=== PATIENT | female | born 1980 | race Caucasian/White ===

== ENCOUNTER 2019-03-15 11:38 | Observation (INO) | payer OTHER, SELFPAY ==
[2019-03-15] VITALS (7 sets, daily range): BP systolic 96–131; BP diastolic 58–82; PULSE 67–89; RESP 16–20; TEMP 37.1–37.3; O2SAT 97–100; BMI 23.8
--- NOTE | ~2019-03-15 | CT_ITS ---
EXAMINATION: CT brain wo con DATE: 03/15/2019 12:56 INDICATION: Right-sided paresthesias. Confusion. TECHNIQUE: Computed tomography (CT) of the head was performed without intravenous contrast. The mA wa s adjusted according to patient size. Iterative reconstruction technique was employed. The dose-lengt h product was 529.67 mGy-cm. COMPARISON: Head CT 05/18/2018 FINDINGS: There is no intracranial hemorrhage, acute infarction, or abnormal intracranial mass lesion . The ventricles are normal in size. The orbits are normal. The paranasal sinuses are clear. The mast oid air cells are normal. IMPRESSION: 1. Normal brain. Reviewed, dictated and finalized at location A. R MACHINE OPERATOR IMPRESSION: 1. Normal brain.
--- NOTE | ~2019-03-15 | MR_ITS ---
EXAMINATION: MR brain/brain stem wo/w con DATE: 03/16/2019 08:31 INDICATION: Transient ischemic attack. Multiple sclerosis. TECHNIQUE: Magnetic resonance imaging (MRI) of the brain and brainstem was performed without and with 10 mm MultiHance intravenous contrast. Sequences included sagittal and axial T1-weighted FLAIR, axia l T1-weighted FSE, axial diffusion-weighted FS EPI, sagittal T2-weighted FLAIR, axial T2*-weighted GR E, axial T2-weighted FLAIR Propeller, and axial T2-weighted Propeller. Postcontrast sequences include d axial, coronal, and sagittal T1-weighted FSE. Apparent diffusion coefficient (ADC) maps were create d. COMPARISON: Head CT 03/15/2019 FINDINGS: There is no intracranial hemorrhage, acute infarction, or abnormal intracranial mass lesion . The ventricles are normal in size. There is mild mucosal thickening in the paranasal sinuses. The o rbits are normal. The mastoid air cells are normal. IMPRESSION: 1. Normal brain. Reviewed, dictated and finalized at location A. E MANAGER IMPRESSION: 1. Normal brain.
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
[2019-03-15 12:18] LABS: Basophils Percent Auto 0.4 % (0.2-1.2); Eosinophils Percent Auto 0.4 % (0-4.4); Hemoglobin 13.1 g/dL (12.0-15.0); Immature Granulocyte Absolute 0.02 K/mm3 (0.00-0.031); Immature Granulocyte Percent A 0.3 % (0-0.5); Lymphocytes Absolute Auto 1.69 K/mm3 (0.9-3.2); Mean Corpuscular HGB Conc 31.2 g/dl (32-36); Mean Corpuscular Hemoglobin 30.4 pg (26-34); Mean Corpuscular Volume 97.4 fl (80-100); Monocytes Absolute Auto 0.5 K/mm3 (0.1-0.6); Monocytes Percent Auto 7.6 % (2.6-8.5); Neutrophils Absolute Auto 4.5 K/mm3 (1.3-6.7); Neutrophils Percent Auto 66.3 % (45.5-73.1); Platelet Count Result 175 k/mm3 (150-375); Red Blood Count 4.31 M/mm3 (4.2-5.4); White Blood Count 6.8 K/mm3 (4.5-10.0)
[2019-03-15 12:21] LABS: Add Urine Microscopic? YES; Appearance Urine Cloudy (Clear); Bacteria Urine Trace /hpf; Bilirubin Urine Negative (Negative); Blood Urine Negative (Negative); Color Urine Yellow (Yellow); Glucose Urine UA Negative (Negative); Ketones Urine Negative (Negative); Leukocyte Esterase Ur 3+ LEU/UL (Negative); Mucus Urine Rare /lpf; Nitrate Urine Negative (Negative); Protein Urine Negative (Negative); Specific Grav Ur 1.016 (1.001-1.035); Squamous Epithelial Cell Urine Many /hpf (Few); Urobilinogen Urine Negative mg/dL (<2.0); WBC Urine 0-3 /hpf
[2019-03-15 12:28] LABS: Alanine Aminotransferase 16 U/L (4-35); Albumin Level 4.5 g/dL (3.5-5.1); Alkaline Phosphatase 59 U/L (38-126); Aspartate Amino Transferase 21 U/L (14-36); Bilirubin,Total 0.2 mg/dL (0.2-1.3); Blood Urea Nitrogen 15 mg/dL (7-17); Calcium 9.4 mg/dL (8.4-10.2); Carbon Dioxide 27 mmol/L (22-30); Chloride 105 mmol/L (98-107); Estimated CRCL calculation 97 ml/min; Estimated Glomerular Filt Rate > 60; Glucose 98 mg/dL (65-105); Potassium 4.2 mmol/L (3.4-5.0); Sodium 140 mmol/L (137-145)
[2019-03-15 13:58] LABS: Amphetamine Screen Urine Negative (Negative); Barbiturate Screen Urine Negative (Negative); Benzodiazepines Screen Urine Negative (Negative); Cannabinoid Screen Urine Negative (Negative); Cocaine Screen Urine Negative (Negative); Methadone Screen Urine Negative (Negative); Opiate Screen Urine Negative (Negative); Phencyclidine Screen Urine Negative (Negative)
[2019-03-15] MEDS: ASPIRIN 325 MG TABLET PO (14:42)
--- NOTE | 2019-03-15 15:45 | ADMGEN ---
This patient, Echo Lam, was admitted to 2 Medical Room 243-01. Patient/family oriented to hospital policies and general routines including ID bracelet, bed and alarms, visiting hours, pain management, procedures, bathroom and other care routines, personal items, smoking policy, room service/diet, and visiting hours. Valuables list has been completed. Information on how to activate the Rapid Response Team has been discussed. Patient/Family are encouraged to report perceived risks to care and to ask questions if they do not understand what they are told or what they should do.
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
--- NOTE | 2019-03-15 19:32 | ECG_ITS ---
Measurements Intervals [place] Rate: 68 P: 71 AR: 152 QRS: 76 QRSD: 88 T: 70 QT: 358 QTc: 381 Interpretive Statements SINUS RHYTHM WITH SINUS ARRHYTHMIA NORMAL ECG Electronically Signed On 03-15-2019 21:35:45 ADMISSIONS DIRECTOR by Karel Paul D.O.
[2019-03-15] MEDS: ACETAMINOPHEN 325 MG TABLET 650 MG PO (19:40)
[2019-03-15 19:50] LABS: Erythrocyte Sedimentation Rate 10 mm/hr (0-20)
[2019-03-15 20:46] LABS: Folic Acid 18.3 ng/mL (2.76->20)
[2019-03-16] VITALS: PULSE 72
[2019-03-16] MEDS: LORAZEPAM 0.5 MG TABLET PO ×2 (00:37→08:45)
[2019-03-16 04:00] VITALS: PULSE 77
[2019-03-16 06:00] VITALS: BP 108/59; PULSE 90; RESP 18; TEMP 37; O2SAT 100
[2019-03-16 07:35] VITALS: PULSE 100
--- NOTE | 2019-03-16 08:30 | PC.NURSE ---
PT C/O OF RIGHT ARM PAIN AND REQUESTED THE ANXIETY PILL SHE HAS LAST NIGHT. DR SPIVEY NOTIFIED, NEW ORDERS RECEIVED.
[2019-03-16] MEDS: ASPIRIN 81 MG CHEWABLE TABLET PO (08:44)
[2019-03-16] MEDS: ACETAMINOPHEN 325 MG TABLET 650 MG PO (10:50)
--- NOTE | 2019-03-16 11:20 | PC.NURSE ---
PT STILL C/O OF RIGHT SIDED ARM AND LEG WEAKNESS AND NUMBNESS AND NOW STATES THAT SHE HAS LOST VISION IN HER RIGHT EYE. DR SPIVEY AND DR RO IN HOSPITAL AND NOTIFIED.
[2019-03-16 14:00] VITALS: BP 114/58; PULSE 91; RESP 16; TEMP 36.9; O2SAT 99
--- NOTE | 2019-03-16 14:11 | PM.IMPN ---
Progress Note: A&P Assessment and Plan (1) Paresthesia: Code(s): R20.2 - Paresthesia of skin Status: Acute Assessment and Plan: CT brain on admission negative. MRI brain normal. Patient has been seen by neurology and appreciate input. Neurology did wish to try to have EEG done prior to discharge but patient prefers not to wait and would like to schedule EEG as an outpatient. Suspect symptoms are at least in part result of recent increased stress. As also okay with Neurology, will discharge home this afternoon. (2) Blurry vision: Code(s): H53.8 - Other visual disturbances Status: Acute Assessment and Plan: Imaging as noted above. Plan for EEG as an outpatient. (3) Anxiety: Code(s): F41.9 - Anxiety disorder, unspecified Status: Acute Assessment and Plan: Did have some Ativan and acetaminophen last night. Will allow patient have a small prescription of Ativan for use at home. (4) DVT prophylaxis: Code(s): Z29.9 - Encounter for prophylactic measures, unspecified Status: Acute Assessment and Plan: Up as tolerated. Time Spent With Patient Time with patient: 15 - 25 minutes Subjective Date/time seen: 03/16/19 14:11 Interval history: Date of Service: 03/16/2019. Admitted with blurry vision, numbness right face/arm/leg. Has had recent significant stress within the past month. Patient has still had some episodes of blurry vision along with numbness in the right face, right arm and right leg. Has been seen by Neurology. Still has some numbness in the right face currently as well as in the right arm and leg but wants to go home. No chest pain or shortness of breath. Review of Systems Constitutional: Constitutional: Denies chills and Denies fever(s) Eyes: Eyes: Reports blurry vision ENT: Denies nasal congestion and Denies nasal discharge Cardiovascular: Cardiovascular: Denies chest pain and Denies lightheadedness Respiratory: Respiratory: Denies dyspnea Gastrointestinal: Gastrointestinal: Denies abdominal pain, Denies nausea and Denies vomiting Genitourinary: Genitourinary: Reports no additional female genitourinary complaints Musculoskeletal: Musculoskeletal: Denies back pain, Denies arthralgias and Denies neck pain Integumentary/Breasts: Skin/Breast: Denies rash Neurologic: Denies Abnormal speech present, Denies abnormal gait, Denies dizziness, Denies headache(s) and Reports numbness (Right face, right arm/leg) Psychiatric: Psychiatric: Reports anxiety Exam Narrative: Exam Narrative: Awake and alert. Const: General: no acute distress HENMT: Mouth: Yes moist mucous membranes Eyes: Sclera: sclerae normal EOM: EOMs intact bilaterally Neck: Neck: supple Lymphatic: lymphadenopathy not noted Resp: Auscultation: clear to auscultation bilaterally, no rales and no wheezes Cardio: Rate: regular rate Rhythm: regular rhythm GI: Inspection: non-distended GI Palp: Yes Soft to palpation and No Tenderness to palpation present (GI) Auscultation: normal bowel sounds Skin: General skin exam: no rashes or lesions noted Neuro: Cognition (Neuro): normal cognition Speech: normal speech Motor exam (neuro): 5/5 motor strength present throughout and Normal motor muscle tone present throughout Other: Decreased sensation to light touch right face Extrem: General: no edema Psych: Mental Status: mental status grossly normal Affect: Anxious affect present Objective Data Vital Signs Vital Signs: Vital Signs - 24 hr 03/15/19 14:44 03/15/19 15:36 03/15/19 16:00 Temperature 98.8 F Pulse Rate 83 89 82 Respiratory Rate 18 18 16 Blood Pressure 116/82 96/62 L 108/60 Pulse Oximetry 97 100 100 03/15/19 19:20 03/15/19 20:00 03/16/19 00:00 Temperature 99.1 F Pulse Rate 67 74 72 Respiratory Rate 20 Blood Pressure 105/58 L Pulse Oximetry 100 03/16/19 04:00 03/16/19 06:00 03/16/19 07:35 Temperature 98.6 F Pulse Rate 77
--- NOTE | 2019-03-16 14:47 | CONS_ITS ---
DATE OF CONSULTATION: 03/15/2019 HISTORY OF PRESENT ILLNESS: This 39 years old right-handed female has been admitted to the hospital through the emergency room for the complaints of right facial numbness. The patient was brought to the ER with a private vehicle for the complaints of intermittent confusion and right facial numbness. She does have ongoing history of ADD. About 3 weeks ago while at work, she developed sudden numbness in her right face and the right upper extremity seemed to be weak and painful. She was confused more so as she remembers sitting in bedroom and then suddenly she was unable to know where she was. Symptoms gradually resolved, but have been recurring intermittently since that time. On 2 occasions in the last couple of weeks, she has had pain behind her right eye with subsequent complete loss of vision in that eye that lasted seconds before resolving. Earlier today while at the grocery store with her mother, she once again began experiencing right face numbness, right arm numbness, and disorientation. She has not had any fever, chills, or sweats. No history of trauma or recent chiropractor adjustment, no history of vertigo or gait instability. PAST MEDICAL HISTORY: She does have ongoing history of ADD, depression, kidney stones, D and C, right salpingo-oophorectomy, cholecystectomy, cystoscopy, capsulectomy, and tubal ligation. SOCIAL HISTORY: She is a never smoker. 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 MEDICATIONS: She is not taking any medication. PHYSICAL EXAMINATION: GENERAL: Today, she was awake, alert, cooperative, in no obvious acute distress, but somewhat distant in conversation. HEENT: Head normocephalic with no cranial bruit. Ears, nose, throat examination normal. NECK: Supple with no cervical bruit. No thyromegaly. No lymphadenopathy. HEART: Regular with no murmur. LUNGS: Clear to auscultation. ABDOMEN: Soft with no organomegaly. NEUROLOGICAL: She had normal mental status, normal speech. Pupils round regular. [place] of vision full. Extraocular movements full. Face symmetrical. Tongue midline. Motor examination revealed normal strength and tone in upper and lower extremities. Reflexes symmetrical. Plantar downgoing. No evidence of gross cerebral deficit. LABORATORY DATA: Evaluation up until now included CBC, which is normal so is the BMP and hepatic enzymes and UA. CT scan of the head done was done in the emergency room which was negative. Since that time, she has had the MRI of the brain as well, which is normal. ASSESSMENT AND PLAN: I will obtain the routine EEG and further recommendation accordingly. I explained to the patient that most likely we are going to rule out the possibility of TIA versus seizure. MRI of the brain is negative. If the EEG comes back normal as well, then we are going to follow her in the office. One could always consider the possibility of demyelinating disease. If necessary, we will obtain the MRI of cervical and thoracic spine later on. AMISHA RO M.D. SUPERVISOR [employer] SUPERVISOR [employer]TO[employer]ORATORY D Armando [place]: Val
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
== END 2019-03-16 14:48 | disposition home or self-care (01) ==
LOC: ANHED 14:31 → ANH2MED 15:17
PROVIDERS: Family Medicine; Physician Assistant; Admitting Provider Hospitalist; Emergency Provider Emergency Medicine; PCP Internal Medicine; Visit Provider Hospitalist
DX: R20.2 Paresthesia of skin (principal); H53.8 Other visual disturbances; F41.9 Anxiety disorder, unspecified; R41.0 Disorientation, unspecified; F98.8 Other specified behavioral and emotional disorders with onset usually occurring in childhood and adolescence; Z87.891 Personal history of nicotine dependence
CPT/HCPCS: 36415; 70450; 70553; 80053; 80307; 81001; 81025; 82607; 82746; 84443; 85025; 85652; 93005; 99285; A9270; A9577; G0378; G0379

== ENCOUNTER 2019-03-22 06:32 | Outpatient (CLI) | payer OTHER, SELFPAY ==
--- NOTE | 2019-03-22 07:00 | NEURO_ITS ---
TEST: ELECTROENCEPHALOGRAM DIAGNOSIS: VISUAL DISTURBANCE PATIENT NUMBER: [id number] EEG NUMBER: [id number] RECORDING DATE: 03/22/19 CONDITION OF RECORDING: Awake, drowsy and sleep EEG DESCRIPTION: Basic resting occipital frequency consists of moderate amount of low to medium voltage 9-11hz alpha mixed with low voltage 15-18hz beta. During drowsiness low voltage beta activity is seen diffusely mixed with waxing and waning posterior alpha rhythms. Bilateral symmetrical sleep activity is seen during sleep. Hyperventilation produced normal and symmetrical build-up. Photic stimulation produced normal drive. Nonparoxysmal. Nonfocal. Nonlateralizing IMPRESSION: No significant abnormalities noted. [facility]
== END 2019-03-22 06:33 | disposition home or self-care (01) ==
PROVIDERS: PCP Internal Medicine; Visit Provider Psychiatry & Neurology Neurology
DX: H53.9 Unspecified visual disturbance (principal)
CPT/HCPCS: 95816

== ENCOUNTER 2019-11-04 08:46 | Emergency (ER) | payer SELFPAY ==
[2019-11-04 09:00] VITALS: BP 100/78; PULSE 87; RESP 20; TEMP 36.6; O2SAT 100
--- NOTE | 2019-11-04 09:16 | ED.BACK ---
HPI - Back Pain/Injury General Chief Complaint: Back Pain/Injury Stated Complaint: lower back pain/right hip pain Source: patient and RN notes reviewed Limitations: no limitations History of Present Illness HPI Narrative: The patient, previously mostly healthy, presents with right low back pain. Patient states she has a 2-day worsening of about a year long history of intermittent back pain. She attributes the pain to walking on a hard floor; No injury, numbness/weakness, bowel?bladder symptoms, hematuria/frequency/urgency/dysuria, weakness. Symptoms are mild radiate only to right hip Related Data Home Medications Medication Instructions Recorded Confirmed albuterol sulfate 2 puff INHALATION QID PRN 11/04/19 11/04/19 montelukast 10 mg PO DAILY 11/04/19 11/04/19 Allergies Allergy/AdvReac Type Severity Reaction Status Date / Time No Known Allergies Allergy Verified 11/04/19 09:05 Review of Systems Review of Systems: Narrative: General/Constitutional: No weight loss,fever Respiratory: Denies: Hemoptysis Gastrointestinal: No Vomiting, Bleeding-rectal Skin: No Lumps, eruption Neurologic: No Focal Weakness,Sz PMFSH Past Medical History Medical History (Updated 11/04/19 @ 09:19 by Willian Rao MD) ADD (attention deficit disorder) Depression Kidney stones Surgical History Surgical History (Updated 03/15/19 @ 15:32 by Mary Le PA-C) History of dilatation and curettage History of right salpingo-oophorectomy Status post cholecystectomy Status post cystoscopy Status post tonsillectomy Status post tubal ligation Social History Social History (Updated 03/15/19 @ 18:44 by Mary Le PA-C) Smoking status: Never smoker Alcohol intake: never Substance use: never Additional living arrangements comments: Lives in [place] with her parents, her brother and [id number], and her 13-year-old daughter. Additional occupation/education comments: Works at [employer]. 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 Gender identity (if verbalized by the patient): Female Spiritual care concerns: No Agree to blood products: Yes Comments At time of signature, agree with nursing past medical, surgical, social and family history. There is no relevant family history pertinent to the presenting complaint Exam Narrative: Exam Narrative: General Appearance: Well appearing, Conjunctiva clear Mouth/Throat: Normal appearing, Supple Respiratory: Airway patent Abdomen: Soft Musculoskeletal: Normal strength (no footdrop, 5/5 : EH L-FHL, gastroc-AT, no saddle weakness) Spine/Back: Paraspinal muscle tender (with mild decreased range of motion; right posterior superior iliac crest) Skin: Normal color Neurological: A&O x3, CN II-XII intact, Normal reflexes (symmetric, 2+ KJ, trace AJ) Psychiatric: Normal mood Course Vital Signs Vital signs: Vital Signs Temperature 97.8 F 11/04/19 09:00 Pulse Rate 87 11/04/19 09:00 Respiratory Rate 11/04/19 09:00 Blood Pressure 100/78 11/04/19 09:00 Pulse Oximetry 100 11/04/19 09:00 Temperature 97.8 F 11/04/19 09:00 Pulse Rate 87 11/04/19 09:00 Respiratory Rate 11/04/19 09:00 Blood Pressure 100/78 11/04/19 09:00 Pulse Oximetry 100 11/04/19 09:00 Discharge Plan Discharge Clinical Impression: Low back strain Qualifiers: Encounter type: initial encounter Qualified Code(s): S39.012A - Strain of muscle, fascia and tendon of lower back, initial encounter Patient Disposition: Home, Self-Care Condition: Stable Instructions: Low Back Strain (ED) Prescriptions: New prednisone 20 mg tablet 60 mg PO DAILY Qty: 15 RF: 0 acetaminophen-codeine 300-30 mg tablet 1 tablet PO HS PRN (Reason: pain) Qty: 10 RF: 0 tramadol 50 mg tablet 50 mg PO TID PRN (Reason: pain) Qty: 15 RF: 1 No Action albuterol sulfate 90 mcg/actuation Hfa Aerosol Inhaler 2 puff INHALATION QID PRN
== END 2019-11-04 09:26 | disposition home or self-care (01) ==
PROVIDERS: Emergency Provider Emergency Medicine; PCP Internal Medicine
DX: S39.012A Strain of muscle, fascia and tendon of lower back, initial encounter (principal); X58.XXXA Exposure to other specified factors, initial encounter
CPT/HCPCS: 99213; G0463

== ENCOUNTER 2020-07-18 08:50 | Outpatient (CLI) | payer OTHER, SELFPAY ==
--- NOTE | 2020-07-18 14:52 | NEURO_ITS ---
PATIENT NUMBER: [id number] IMPRESSION: # Complains of paresthesia of upper and lower extremities. # Normal nerve conduction studies including motor and sensory nerves. # Normal needle exam. # Clinical correlation recommended. Nerve Conduction Studies Anti Sensory Summary Table Stim Site NR Peak (ms) P-T Amp (?V) Site1 Site2 Delta-P (ms) Dist (cm) Del (m/s) Left Median Anti Sensory (2-3nd Digit) Wrist 2.3 220.9 Wrist 2-3nd Digit 2.3 14.0 61 Wrist 2.4 21.4 Wrist 2-3nd Digit 2.3 14.0 61 Right Median Anti Sensory (2-3nd Digit) Wrist 2.8 385.8 Wrist 2-3nd Digit 2.8 14.0 50 Wrist 2.8 220.4 Wrist 2-3nd Digit 2.8 14.0 50 Left Radial Anti Sensory (Base 1st Digit) Wrist 2.3 45.3 Wrist Base 1st Digit 2.3 0.0 Right Radial Anti Sensory (Base 1st Digit) Wrist 1.7 71.6 Wrist Base 1st Digit 1.7 0.0 Left Sup Fibular Anti Sensory (Ant Lat Mall) 14 cm 3.1 1.6 14 cm Ant Lat Mall 3.1 16.0 52 Right Sup Fibular Anti Sensory (Ant Lat Mall) 14 cm 3.6 195.7 14 cm Ant Lat Mall 3.6 16.0 44 Left Sural Anti Sensory (Lat Mall) Calf 3.4 12.6 Calf Lat Mall 3.4 16.0 47 Right Sural Anti Sensory (Lat Mall) Calf 3.1 48.2 Calf Lat Mall 3.1 16.0 52 Left Ulnar Anti Sensory (5th Digit) Wrist 2.2 98.3 Wrist 5th Digit 2.2 14.0 64 Right Ulnar Anti Sensory (5th Digit) Wrist 2.5 107.4 Wrist 5th Digit 2.5 14.0 56 Motor Summary Table Stim Site NR Onset (ms) O-P Amp (mV) Site1 Site2 Delta-0 (ms) Dist (cm) Del (m/s) Right Median Motor (Abd Poll Brev) Wrist 2.5 6.3 Elbow Wrist 4.5 27.0 60 Elbow 7.0 4.5 Left Peroneal Motor (Vastus Med) Ankle 3.4 2.1 Popit Ankle 7.0 38.0 54 Popit 10.4 1.2 Right Peroneal Motor (Vastus Med) Ankle 4.5 1.4 Popit Ankle 6.8 35.0 51 Popit 11.3 2.2 Left Tibial Motor (Abd Bella Brev) Ankle 5.4 4.3 Knee Ankle 8.5 41.0 48 Knee 13.9 2.2 Right Tibial Motor (Abd Bella Brev) Ankle 5.0 8.2 Knee Ankle 8.4 39.0 46 Knee 13.4 1.8 Left Ulnar Motor (Abd Dig Minimi) Wrist 2.5 9.5 A Elbow Wrist 4.1 27.0 66 A Elbow 6.6 8.2 Right Ulnar Motor (Abd Dig Minimi) Wrist 2.7 9.0 A Elbow Wrist 4.1 27.0 66 A Elbow 6.8 8.0 F Wave Studies NR F-Lat (ms) L-R F-Lat (ms) Left Median (Mrkrs) (Abd Poll Brev) 26.33 0.83 Right Median (Mrkrs) (Abd Poll Brev) 25.50 0.83 Left Peroneal (Mrkrs) (EDB) 47.12 0.22 Right Peroneal (Mrkrs) (EDB) 47.34 0.22 Left Tibial (Mrkrs) (Abd Hallucis) 48.54 0.23 Right Tibial (Mrkrs) (Abd Hallucis) 48.31 0.23 Left Ulnar (Mrkrs) (Abd Dig Min) 24.79 0.92 Right Ulnar (Mrkrs) (Abd Dig Min) 25.70 0.92 EMG Side Muscle Nerve Root Ins Act Fibs Amp Dur Recrt Comment Right 1stDorInt Ulnar C8-T1 Nml Nml Nml Nml Nml Right Ext Indicis Radial (Post Int) C7-8 Nml Nml Nml Nml Nml Right Ext Digitorum Radial (Post Int) C7-8 Nml Nml Nml Nml Nml Right BrachioRad Radial C5-6 Nml Nml Nml Nml Nml Right PronatorTeres Median C6-7 Nml Nml Nml Nml Nml Right Abd Poll Brev Median C8-T1 Nml Nml Nml Nml Nml Right AntTibialis Dp Br Fibular L4-5 Nml Nml Nml Nml Nml Right Gastroc Tibial S1-2 Nml Nml Nml Nml Nml Right Fibularis Long Sup Br Fibular L5-S1 Nml Nml Nml Nml Nml Right
== END 2020-07-18 08:51 | disposition home or self-care (01) ==
PROVIDERS: PCP Family Medicine; Visit Provider Family Medicine
DX: R20.2 Paresthesia of skin (principal)
CPT/HCPCS: 95886; 95913

== ENCOUNTER → 2020-09-20 01:21 | Outpatient (CLI) | payer OTHER, SELFPAY ==
[2020-09-21 02:21] LABS: SARS-CoV-2 RNA PCR Negative
== END ==
PROVIDERS: PCP Family Medicine; Visit Provider Family Medicine
DX: J02.9 Acute pharyngitis, unspecified (principal); Z20.822 Contact with and (suspected) exposure to COVID-19
CPT/HCPCS: C9803; U0003; U0005

== ENCOUNTER 2020-09-25 10:07 | Emergency (ER) | payer OTHER, SELFPAY ==
--- NOTE | ~2020-09-25 | XR_ITS ---
EXAMINATION: XR chest 2V DATE: 09/25/2020 10:59 INDICATION: Cough and shortness of breath TECHNIQUE: PA and lateral views of the chest are obtained. COMPARISON: 12/31/2004 FINDINGS: There are minimal airspace opacities of the mid and lower lung zones. There is no pleural e ffusion or pneumothorax. The cardiomediastinal silhouette is normal. The visualized bones and soft ti ssues are unremarkable. Cholecystectomy clips are noted in the right upper quadrant. IMPRESSION: 1. Airspace opacities of the mid and lower lung zones, consistent with atelectasis versus pneumonia. Reviewed, dictated and finalized at location B. IMPRESSION: 1. Airspace opacities of the mid and lower lung zones, consistent with atelecta sis versus pneumonia.
[2020-09-25 10:29] VITALS: BP 113/76; PULSE 81; RESP 18; TEMP 36.2; O2SAT 99
--- NOTE | 2020-09-25 10:40 | ECG_ITS ---
Measurements Intervals Calmar Rate: 84 P: 72 MA: 156 QRS: 61 QRSD: 77 T: 54 QT: 334 QTc: 396 Interpretive Statements SINUS RHYTHM WITH SINUS ARRHYTHMIA NORMAL ECG Electronically Signed On 09-25-2020 11:17:11 CDT by Karel Paul D.O.
--- NOTE | 2020-09-25 10:52 | PC.NURSE ---
Pt taken to radiology
--- NOTE | 2020-09-25 11:02 | ED.WEAKNESS ---
HPI - Weakness General Chief complaint: Shortness of Breath/Dyspnea Stated complaint: weak, disoriented Time Seen by Provider: 09/25/20 10:35 History of Present Illness HPI Narrative: 40 yo female presents to the ED for multiple complaints. She reports that she has felt disoriented and just not right for the past few days. In addition to this she has had headache, nausea, vomiting, body aches, right arm pain, cough, congestion, SOB, chills. No fever. She has had the covid-19 vaccine. No known sick contacts. Related Data Home Medications Medication Instructions Recorded Confirmed albuterol sulfate 2 puff INHALATION QID PRN 11/04/19 04/25/20 cetirizine 10 mg tablet 10 mg PO DAILY PRN 04/25/20 04/25/20 fluticasone propionate 50 1 spray INTRANASAL BID 04/25/20 04/25/20 mcg/actuation nasal spray,suspension Allergies Allergy/AdvReac Type Severity Reaction Status Date / Time No Known Allergies Allergy Verified 09/25/20 11:23 Review of Systems Review of Systems: All systems reviewed & are unremarkable except as noted in HPI and below Constitutional: Constitutional: Reports chills, Reports fatigue and Denies fever(s) Eyes: Eyes: Reports change in vision ENT: Reports nasal congestion and Denies sore throat Cardiovascular: Cardiovascular: Reports chest pain Respiratory: Respiratory: Reports cough and Reports dyspnea PMFSH Past Medical History Medical History (Updated 09/25/20 @ 13:11 by Imtiaz Colon MD) ADD (attention deficit disorder) Attention deficit hyperactivity disorder (ADHD), combined type, mild Bipolar disorder Blurry vision BMI 27.0-27.9,adult Caffeine abuse, continuous Chronic anxiety COVID-19 (~03/01/19) positive antibody test 04/30/2020 Depression DVT prophylaxis Encounter for screening for other viral diseases Kidney stones Mild intermittent asthma in adult without complication Neurological symptoms Pharyngitis Seasonal allergic rhinitis Surgical History Surgical History (System 12/21/19 @ 17:01 by Lili Akers) History of dilatation and curettage History of right salpingo-oophorectomy Status post cholecystectomy Status post cystoscopy Status post tonsillectomy Status post tubal ligation Family History Family History (System 12/21/19 @ 17:01 by Lili Akers) Father Hypertension Social History Social History Smoking status: Never smoker Alcohol intake: never Substance use: never Additional living arrangements comments: Lives in [place] with her parents, her brother and [id number], and her 13-year-old daughter. Additional occupation/education comments: Works at [employer]. 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 Gender identity (if verbalized by the patient): Female Spiritual care concerns: No Agree to blood products: Yes Course Vital Signs Vital signs: Vital Signs Temperature 36.2 C L 09/25/20 10:29 Pulse Rate 81 09/25/20 10:29 Respiratory Rate 18 09/25/20 10:29 Blood Pressure 113/76 09/25/20 10:29 Pulse Oximetry 99 09/25/20 10:29 Temperature 37.1 C 09/25/20 11:22 Pulse Rate 85 09/25/20 11:22 Respiratory Rate 22 H 09/25/20 11:22 Blood Pressure 115/70 09/25/20 11:22 Pulse Oximetry 100 09/25/20 11:22 MDM - Weakness MDM Narrative Medical decision making narrative: Symptoms suspiscious for COVID-19. She has previous infection and vaccination, so this would be strange, but I will send the test. I will also start azithromycin while this is pending. Medical Records Attestation: I reviewed the patient's medical records. Lab Data Attestation: I reviewed the patient's lab results. Result diagrams: 09/25/20 11:05 09/25/20 11:05 Labs: Lab Results 09/25/20 09/25/20 09/25/20 Range/Units 11:05 11:05 12:00 WBC 7.9 (4.5-10.0) K/mm3 RBC 4.83 (4.2-5.4) M/mm3 Hgb 14.5 (12.0-15.0) g/dL Hc
[2020-09-25 11:22] VITALS: BP 115/70; PULSE 85; RESP 22; TEMP 37.1; O2SAT 100
[2020-09-25] MEDS: DEXAMETHASONE SOD PHOS INJ 4 MG/ML VIAL 10 MG IV PUSH (11:43)
[2020-09-25] MEDS: KETOROLAC 30 MG/ML VIAL (*BKC) IV PUSH (11:43)
[2020-09-25] MEDS: METOCLOPRAMIDE HCL INJ 10 MG/2 ML VIAL IV PUSH (11:44)
[2020-09-25] MEDS: SODIUM CHLORIDE 0.9% IV 1,000 ML 999 ML (11:44)
[2020-09-25 11:45] LABS: Basophils Percent Auto 0.5 % (0.2-1.2); Eosinophils Percent Auto 0.4 % (0-4.4); Hematocrit 45.9 % (37.0-47.0); Hemoglobin 14.5 g/dL (12.0-15.0); Immature Granulocyte Absolute 0.02 K/mm3 (0.00-0.031); Immature Granulocyte Percent A 0.3 % (0-0.5); Lymphocytes Absolute Auto 1.44 K/mm3 (0.9-3.2); Lymphocytes Percent Auto 18.2 % (18.3-44.2); Mean Corpuscular HGB Conc 31.6 g/dl (32-36); Mean Platelet Volume 12.1 fl (7.4-10.4); Monocytes Absolute Auto 0.4 K/mm3 (0.1-0.6); Monocytes Percent Auto 5.6 % (2.6-8.5); Platelet Count Result 210 k/mm3 (150-375); Red Blood Count 4.83 M/mm3 (4.2-5.4); Red Cell Distribution Width 12.4 % (11.5-14.5); White Blood Count 7.9 K/mm3 (4.5-10.0)
[2020-09-25 11:56] LABS: Alanine Aminotransferase 19 U/L (4-35); Albumin Level 4.7 g/dL (3.5-5.1); Alkaline Phosphatase 70 U/L (38-126); Anion Gap 7 mmol/L (8-16); Aspartate Amino Transferase 28 U/L (14-36); Bilirubin,Total 0.5 mg/dL (0.2-1.3); Blood Urea Nitrogen 11 mg/dL (7-17); Calcium 9.7 mg/dL (8.4-10.2); Carbon Dioxide 24 mmol/L (22-30); Chloride 107 mmol/L (98-107); Estimated CRCL calculation 82 ml/min; Estimated Glomerular Filt Rate > 60; Glucose 83 mg/dL (65-110); Lipase 91 U/L (23-300); Potassium 4.2 mmol/L (3.4-5.0); Sodium 138 mmol/L (137-145)
[2020-09-25 13:27] VITALS: BP 138/78; PULSE 76; RESP 18; O2SAT 99
[2020-09-26 20:10] LABS: SARS-CoV-2 RNA PCR Negative
== END 2020-09-25 13:27 | disposition home or self-care (01) ==
PROVIDERS: Emergency Provider Emergency Medicine; PCP Family Medicine
DX: J18.9 Pneumonia, unspecified organism (principal); J45.20 Mild intermittent asthma, uncomplicated; Z20.822 Contact with and (suspected) exposure to COVID-19; Z86.16 Personal history of COVID-19; Z87.442 Personal history of urinary calculi; F98.8 Other specified behavioral and emotional disorders with onset usually occurring in childhood and adolescence; F31.9 Bipolar disorder, unspecified; F41.9 Anxiety disorder, unspecified
CPT/HCPCS: 36415; 71046; 80053; 83690; 85025; 93005; 96361; 96374; 96375; 99284; C9803; J0131; J1100; J1885; J2765; J7030; U0003; U0005

== ENCOUNTER 2021-04-15 08:53 | Outpatient (CLI) | payer OTHER, SELFPAY ==
--- NOTE | ~2021-04-15 | XR_ITS ---
EXAMINATION: XR foot LT min 3V DATE: 04/15/2021 09:21 INDICATION: Left fifth toe pain. TECHNIQUE: 5 views of left foot were obtained. COMPARISON: None. FINDINGS: Bone alignment is normal. There is ankylosis of fifth middle and distal phalanges with luce nt line at the site of ankylosis. Joint spaces are normal. There is an enthesophyte at the plantar as pect of calcaneal tuberosity. IMPRESSION: 1. 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 A lucent line at the site of ankylosis may be the normal appearance with incomplete bony fusion. Given the patient's symptoms, note that a healing frac ture could have the same appearance. Reviewed, dictated and finalized at location A. 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 A lucent line at the site of ankylosis may be the normal appearance with incomplete bony fusion. Given the patient's symptoms, note that a healing fracture could have the same appearance .
== END 2021-04-15 08:54 | disposition home or self-care (01) ==
PROVIDERS: PCP Family Medicine; Visit Provider Family Medicine
DX: M79.675 Pain in left toe(s) (principal); M79.89 Other specified soft tissue disorders; M24.675 Ankylosis, left foot
CPT/HCPCS: 73630

== ENCOUNTER 2021-09-12 01:43 | Day surgery (SDC) | payer OTHER, SELFPAY ==
[2021-09-04 15:37] VITALS: BMI 24.5
--- NOTE | 2021-09-04 15:50 | PC.NURSE ---
Report to the Outpatient Waiting Room, entrance under the green pavilion located off [facility], at time 0600 on date 09/12/21. OR Time: 0730. - You and your visitor will be asked a series of questions to screen for COVID 19 for your protection. - Only one visitor is allowed at this time. - The patient visitor is requested to leave or wait in car when not with patient. - A mask is required within the hospital. Patients may have clear liquids (water, carbonated beverages, clear teas, apple juice) until 3 hours prior to surgery with a maximum of 20 ounces. - No food from midnight until time of surgery Take the following medications with a SIP of water the morning of surgery: BUSPIRONE, ESCITALOPRAM Medications to discontinue per physician: IBUPROFEN Date to take last dose: PER DR. VENCES Please no make-up, nail khmer, hairspray, perfume, deodorant, or body powder the day of surgery. No jewelry (including any body piercings) or valuables the day of surgery, leave them at home. Please take a shower or bath the night before, or the morning of, surgery with an antibacterial soap. Wear comfortable, loose fitting clothing. - Jewelry must be removed prior to entering the operating room. Rings and piercings that are not removed may be cut off. - The hospital will not accept responsibility for valuables. - Please leave all valuables, including medications, at home the day of surgery. If you are going home after surgery, a licensed concrete mixer truck driver must drive you home. - NO public transportation without another adult. - We recommend that an adult stay with you for 24 hours following discharge. - We also recommend that you do not drive, make important decision, drink alcoholic beverages, or take any drugs that were not prescribed by your health care provider for at least 24 hours after your discharge time. Follow any additional instructions given to you from your surgeon. If you or anyone in your household have experienced Covid symptoms in the past week, please notify your surgeon or the nurse liaison at the phone number below for possible testing. Telephone instructions given to PT - CARLOS BURGOS and asked if any additional questions and then verbalized understanding. Patient advised to call surgeon office or pre surgery nurse liaison [phone] if any additional questions.
[2021-09-12] VITALS (8 sets, daily range): BP systolic 87–123; BP diastolic 51–81; PULSE 52–83; RESP 14–21; TEMP 36.6; O2SAT 97–100
--- NOTE | ~2021-09-12 | XR_ITS ---
EXAMINATION: XR surgery orthopedic DATE: 09/12/2021 08:01 INDICATION: Left foot fifth digit resection TECHNIQUE: A single fluoroscopic images of the left forefoot was obtained during procedure performed by Dr. Wick. Radiologist was not present for the imaging or procedure. The amount of fluoroscopy time used during this procedure was 0.2 minutes. COMPARISON: None. FINDINGS: Percutaneous pin fixation extending from the distal tuft of the fifth distal phalanx to the base of t he fifth proximal phalanx. The margins of the bone in the fifth toe are poorly visualized due to to c ombination of overpenetration and quantum mottle resulting from fluoroscopic technique. Remainder of the visualized bones appear unremarkable with normal alignment and joint spaces and no fracture. IMPRESSION: 1. Percutaneous pin fixation of the fifth proximal phalanx, with suboptimal visualization/assessment of the THE fifth toe due to fluoroscopic technique. See procedure note for further detail. Reviewed, dictated and finalized at location A. IMPRESSION: 1. Percutaneous pin fixation of the fifth proximal phalanx, with suboptimal vis ualization/assessment of the THE fifth toe due to fluoroscopic technique. See p rocedure note for further detail.
--- NOTE | 2021-09-12 06:27 | WPDANESEPPF ---
Anes - Initial Pre Proc Eval Procedure: Operation Date: 09/12/21 07:30 Proposed Procedures p Resection of Nonunion to Fifth Digit Left Foot - Steffen Whitehead JR, MD Date/Time: 09/12/21 06:27 Surgeon: Steffen Whitehead JR, MD Pre Op Diagnosis: painful of nonunion left 5th digit Patient Data Age: 41 Gender: F Height: 1.55 m Weight: 58.97 kg Allergies Allergy/AdvReac Type Severity Reaction Status Date / Time No Known Allergies Allergy Verified 09/04/21 15:35 Home Medications Medication Instructions Recorded Confirmed Type escitalopram oxalate 20 mg tablet 20 mg PO DAILY #30 tabs 10/24/20 09/04/21 Rx (Lexapro) buspirone 10 mg tablet 10 mg PO BID #60 tabs 04/15/21 09/04/21 Rx dextroamphetamine-amphetamine 7.5 7.5 mg PO BID #60 tabs 08/19/21 09/04/21 Rx mg tablet (Adderall) ibuprofen 200 mg tablet 600 mg PO Q6H PRN Pain 09/04/21 09/04/21 History norethindrone acetate 1 mg-ethinyl 1 tablet PO HS 09/04/21 09/04/21 History estradiol 20 mcg tablet Patient hx anesthesia problems: none Family hx anesthesia problems: none Results Review: All pre-operative results and documents have been reviewed as part of the pre-operative evaluation. [facility] Past Medical History Medical History ADD (attention deficit disorder) Attention deficit hyperactivity disorder (ADHD), combined type, mild Bipolar disorder Blurry vision BMI 27.0-27.9,adult BMI 28.0-28.9,adult Caffeine abuse, continuous Chronic anxiety Chronic toe pain, left foot COVID-19 (~03/01/19) positive antibody test 04/30/2020 Depression DVT prophylaxis Encounter for screening for other viral diseases Kidney stones Migraine without aura and without status migrainosus, not intractable (~03/2021) Mild intermittent asthma in adult without complication Neurological symptoms Nonunion of fracture of foot Overweight (BMI 25.0-29.9) Pain and swelling of toe of left foot (02/09/21) crush injury 02/09/2021 left 5th toe . 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 Gender identity (if verbalized by the patient): Female Spiritual care concerns: No Agree to blood products: Yes Anes - Eval Final PreProcedure Day of Procedure 09/12/21 06:27 Patient weight: normal Heart: regular rate and rhythm Lungs: clear to auscultation Airway: Mallampati scale class II Neurological: alert and oriented Last oral intake: >/= 8 hours ASA classification: II Emergent: no Anesthetic plan: proceed Anesthesia type and monitoring: general GIVS and standard monitoring Results Review: All pre-operative results and documents have been reviewed as part of the pre-operative evaluation. Informed Consent: The patient's anesthetic plan and its attendant risks and benefits were discussed with the patient/family/POA. Questions were solicited and answers provided to the satisf
[2021-09-12] MEDS: LACTATED RINGERS 1,000 ML 30 ML IV CONT ×2 (06:47→09:08)
--- NOTE | 2021-09-12 07:08 | WPDHPUPDATE1 ---
History and Physical Update Update Date/Time: 09/12/21 07:08 History and Physical has been reviewed, including an updated exam of the patient. There are NO changes in the patient's condition. Risks, benefits, and alternatives have been discussed and questions answered. Patient agrees to proceed with procedure.
[2021-09-12] MEDS: ceFAZolin 2 GM/D5W 50 ML 2 GM/50 ML BAG IVPB (07:19)
[2021-09-12] MEDS: LIDOCAINE HCL 2% LOCAL INJ 20 ML VIAL 10 ML INFILTRATE (07:31)
[2021-09-12] MEDS: BUPIVACAINE HCL 0.5% PF 30 ML VIAL 10 ML INFILTRATE (07:32)
--- NOTE | 2021-09-12 08:19 | P.OP_ITS ---
Procedure Note - Detailed Date of Procedure 09/12/21 Pre-op Diagnosis Painful of nonunion left 5th digit fracture Post-op Diagnosis Same Procedure Performed 1. Resection of non union left fifth digit 2. 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 A pneumatic ankle tourniquet was placed about the patient's ankle. Following monitored anesthesia care, local anesthesia was obtained about the left foot with Perkins block about the 5th metatarsal shaft utilizing 20 mL of a 1:1 mixture of 2% Lidocaine plain and 0.5% Marcaine plain . The foot was then scrubbed, prepped, and draped in the usual aseptic manner. An Esmarch bandage was then used to exsanguinate the patient's foot and the pneumatic ankle tourniquet was then inflated. Attention was directed to the fifth digit of the left foot where a 2cm incision was made from the distal interphalangeal joint extending to the base of the pr oximal phalanx. A transverse tenotomy was created dorsal to the distal interphalangeal joint, next the fibrous non union site of the middle phalanx phalanx was resected with an oscillating saw blade in a feathering motion as to minimize shortening of the digit. Next, I drove a k wires out the distal tip of the 5th digit and then retrograded the k wire though the 3 phalanges of the 5th digit, there was only a small remnant of the middle phalanx remaining, I attempted to incorporate this small remnant in the stabilization technique as to maintain length. Excellent correction of the sagittal plane contracture to the digit was noted after the k wire stabilization. Fluoroscopy was used to make sure that good alignment of the digit was maintained. I did stabilize the digit in a slight medial orientation as to prevent shoe wear problems in the future. I cut the end of the K wire and bent the end with a Neftaly tip and folded it back on itself as to eliminate the sharp point. I reapproximated the subcutaneous structures with 4.0 Monocryl and the skin with 4-0 Monocryl in simple interrupted suture fashion technique.. Upon completion of the procedure, the incisions were dressed with Adaptic, 4x4s, Kerlix, and Coban. The pneumatic ankle tourniquet was then deflated and a prompt hyperemic response was noted to all digits of the left foot. A CAM walker boot was then applied. The patient did very well with the procedure and the anesthesia. The patient was transferred to the recovery room with vital signs stable and vascular status intact to all toes of the left foot. Following a period of postoperative monitoring, the patient will be discharged home on the following written and oral postoperative instructions: 1. The patient should keep the dressing clean, dry, and intact. Use a cast protector bag with showers. 2. The patient will be protected with CAM walker boot . 3. Patient should ice and elevate the affected foot when at rest. 4. The patient is to contact Dr. Whitehead for all postop care and if any problems arise. 5. Prescriptions were written for Percocet 5/325 to be taken 1 p.o. q.4-6 hours as needed for severe pain. Implants One 0.035 K wire Estimated Blood Loss 1 Pathology None sent Complications No immediate complications Condition Stable Disposition Same day
[2021-09-12] MEDS: fentaNYL CITRATE INJ (*CRX) 100 MCG/2 ML VIAL 25 MCG IV PUSH ×3 (08:39→08:49)
--- NOTE | 2021-09-12 09:07 | SUR.PHASEII ---
09- Call to Dr. Cotton patient's oxygen saturation into mid 80's after administration of 75mcg Fentanyl IVP. Oxygen mask placed on patient and oxygen saturation returned into 90's-100%. 906- Dr. Cotton to outpatient room 15 and assessed patient's status. Per Dr. Cotton avoid any additional doses of narcotics. No further orders at this time.
--- NOTE | 2021-09-12 10:30 | SUR.PHASEII ---
1025- Patient requesting to be discharged home. Advised motherJaylyn patient should be accompanied while at home and watched for 24 hours post discharge. Mother and patient verbalized understanding and agreeable for discharge. 1030- Discharge instructions reviewed with patient and motherJaylyn. Patient and mother verbalized understanding. All questions and concerns answered.
== END 2021-09-12 10:37 | disposition home or self-care (01) ==
PROVIDERS: PCP Family Medicine; Visit Provider Podiatrist Foot & Ankle Surgery
PROC: (CPT 28104; principal; 2021-09-12 07:30)
DX: S92.522A Displaced fracture of middle phalanx of left lesser toe(s), initial encounter for closed fracture (principal); W22.8XXA Striking against or struck by other objects, initial encounter; J45.909 Unspecified asthma, uncomplicated; F90.9 Attention-deficit hyperactivity disorder, unspecified type; F31.9 Bipolar disorder, unspecified; Z86.16 Personal history of COVID-19; J45.20 Mild intermittent asthma, uncomplicated; Z87.891 Personal history of nicotine dependence
CPT/HCPCS: 26546; 99199; J0131; J0690; J1100; J2250; J2405; J2704; J3010; J7120

== ENCOUNTER 2021-12-23 12:49 | Outpatient (CLI) | payer OTHER, SELFPAY ==
--- NOTE | ~2021-12-23 | US_ITS ---
EXAMINATION: US pelvic complete w TV DATE: 12/23/2021 13:54 INDICATION: Pelvic and perineal pain. TECHNIQUE: Multiple transabdominal and transvaginal sonographic images of the pelvis were obtained. COMPARISON: CT abdomen and pelvis 09/30/2018 FINDINGS: TRANSABDOMINAL ULTRASOUND: The uterus measures 7.9 x 2.5 x 3.7 cm. There is no free fluid in the pelvis. TRANSVAGINAL ULTRASOUND: The endometrial complex measures 4 mm in thickness. The right ovary is not visualized. The left ovary measures 3.7 x 2.2 x 2.4 cm. There is a 2.5 cm dominant follicle in left ovary. There is vascular fl ow in left ovary. Again seen are enlarged periuterine veins, consistent with pelvic venous insufficie ncy. IMPRESSION: 1. Pelvic venous insufficiency. Reviewed, dictated and finalized at location A. CCO SHAKER
[2021-12-23 14:30] LABS: Basophils Percent Auto 0.3 % (0.2-1.2); Eosinophils Percent Auto 0.5 % (0-4.4); Hematocrit 43.3 % (37.0-47.0); Hemoglobin 13.7 g/dL (12.0-15.0); Immature Granulocyte Absolute 0.05 K/mm3 (0.00-0.031); Immature Granulocyte Percent A 0.6 % (0-0.5); Lymphocytes Absolute Auto 1.84 K/mm3 (0.9-3.2); Mean Corpuscular HGB Conc 31.6 g/dl (32-36); Mean Corpuscular Hemoglobin 30.5 pg (26-34); Mean Corpuscular Volume 96.4 fl (80-100); Mean Platelet Volume 11.3 fl (7.4-10.4); Monocytes Absolute Auto 0.6 K/mm3 (0.1-0.6); Monocytes Percent Auto 6.3 % (2.6-8.5); Neutrophils Absolute Auto 6.3 K/mm3 (1.3-6.7); Neutrophils Percent Auto 71.3 % (45.5-73.1); Platelet Count Result 209 k/mm3 (150-375); Red Blood Count 4.49 M/mm3 (4.2-5.4); Red Cell Distribution Width 12.6 % (11.5-14.5); White Blood Count 8.8 K/mm3 (4.5-10.0)
[2021-12-23 14:39] LABS: Alanine Aminotransferase 23 U/L (6-35); Albumin Level 4.4 g/dL (3.5-5.1); Alkaline Phosphatase 79 U/L (38-126); Anion Gap 13 mmol/L (8-16); Aspartate Amino Transferase 23 U/L (14-36); Bilirubin,Total 0.3 mg/dL (0.2-1.3); Blood Urea Nitrogen 13 mg/dL (7-17); Calcium 9.2 mg/dL (8.4-10.2); Carbon Dioxide 26 mmol/L (22-30); Chloride 102 mmol/L (98-107); Estimated Glomerular Filt Rate > 60; Glucose 93 mg/dL (65-110); Potassium 3.8 mmol/L (3.4-5.0); Sodium 141 mmol/L (137-145)
[2021-12-23 15:21] LABS: Free T4 Free Thyroxine 0.67 ng/mL (0.78-2.19)
[2021-12-26 11:32] LABS: DHEA-Sulfate 193 mcg/dL (23-266)
[2021-12-27 05:53] LABS: FSH 8.6 mIU/mL (***); Triiodothyronine T3 Free 3.2 pg/mL (2.3-4.2)
[2022-01-01 20:51] LABS: Estradiol, Ultrasensitive 236 pg/mL
== END 2021-12-23 12:50 | disposition home or self-care (01) ==
PROVIDERS: PCP Family Medicine; Visit Provider Obstetrics & Gynecology
DX: N92.6 Irregular menstruation, unspecified (principal); R10.2 Pelvic and perineal pain; I87.2 Venous insufficiency (chronic) (peripheral)
CPT/HCPCS: 36415; 76830; 76856; 80053; 82627; 82670; 83001; 84439; 84443; 84481; 85025

== ENCOUNTER 2022-01-22 15:22 | Outpatient (CLI) | payer OTHER, SELFPAY ==
--- NOTE | ~2022-01-22 | US_ITS ---
US thyroid INDICATION: Dysphagia TECHNIQUE: Real-time sonographic images of the thyroid gland were obtained. COMPARISON: No prior studies for comparison. FINDINGS: The right thyroid lobe measures 4.1 x 1 x 1 cm. The left thyroid lobe measures 4 x 0.7 x 1 .2 cm. There is normal echotexture and echogenicity throughout the thyroid gland. No discrete nodules identified. Normal vascular flow is present. IMPRESSION: 1. Normal thyroid without discrete nodule or abnormal vascularity. Reviewed, dictated and finalized at location A. L TREATER
== END 2022-01-22 15:23 | disposition home or self-care (01) ==
PROVIDERS: PCP Family Medicine; Visit Provider Nurse Practitioner
DX: R13.10 Dysphagia, unspecified (principal)
CPT/HCPCS: 76536

== ENCOUNTER 2022-02-24 07:33 | Outpatient (CLI) | payer OTHER, SELFPAY ==
--- NOTE | ~2022-02-24 | MM_ITS ---
EXAMINATION: MM screening [facility] BI w nick HISTORY: Screening mammogram TECHNIQUE: Craniocaudal and mediolateral oblique 3-D tomosynthesis images were obtained and synthetic 2-D images were generated. CAD analysis was submitted and interpreted. COMPARISON: 01/19/2014 right breast ultrasound BREAST PARENCHYMAL COMPOSITION: The breasts are heterogeneously dense, which may obscure small masses . FINDINGS: Subtle grouped microcalcifications are noted anteriorly in the upper outer left breast. Diana gnostic left mammogram with magnification views and left breast ultrasound examination are recommende d. Occasional bilateral benign calcifications are noted. No suspicious mass or architectural distortion, skin thickening or retraction of either breast is det ected. IMPRESSION: 1. Subtle grouped microcalcifications in the anterior upper outer left breast 2. Diagnostic left mammogram with magnification views and left breast ultrasound examination are kedar mmended BI-RADS Category 0: Incomplete: Needs additional imaging evaluation. Reviewed, dictated and finalized at location A. RETE BLOCK MASON IMPRESSION: 1. Subtle grouped microcalcifications in the anterior upper outer left breast 2. Diagnostic left mammogram with magnification views and left breast ultrasoun d examination are recommended BI-RADS Category 0: Incomplete: Needs additional imaging evaluation.
== END 2022-02-24 07:34 | disposition home or self-care (01) ==
PROVIDERS: PCP Family Medicine; Visit Provider Obstetrics & Gynecology
DX: Z12.31 Encounter for screening mammogram for malignant neoplasm of breast (principal); R92.8 Other abnormal and inconclusive findings on diagnostic imaging of breast
CPT/HCPCS: 77063; 77067

== ENCOUNTER 2022-03-10 08:03 | Outpatient (CLI) | payer OTHER, SELFPAY ==
--- NOTE | 2022-03-31 12:58 | WPDHOMESLEEP ---
Sleep Study - Home Unattended Date of Study: 03/10/22 Ordering Provider: Blayne Davidson MD Interpreting Provider: Mariana Grewal, DO Home Sleep Study Type: Watch PAT Height: 1.55 m Weight: 56.699 kg Body Mass Index: 23.6 Neck Circumference (inches): 12.5 [place]: 19 Reason for Sleep Study Nocturia, daytime hypersomnia Sleep History The patient is a 42-year-old female with anxiety, depression, hypothyroidism, migraines, bipolar disorder, ADHD and asthma that had a sleep study ordered by her primary care physician for evaluation of sleep apnea. The patient denies awakening from sleep short of breath. She denies awakening at night with heartburn, belching or cough. She frequently snores loud enough that others complain. She rarely has trouble sleeping when she has a cold. She denies waking up gasping for air throughout. She denies having breathing problems at night observed by herself or others. She constantly sweats excessively at night. She denies having heart palpitations or irregular heartbeats during the night. She constantly falls asleep during the day but never while driving. She denies sleep paralysis, cataplexy and hypnagogic / hypnopompic hallucinations. He constantly has trouble at school or work due to sleepiness. She denies feeling afraid of going to sleep. She rarely has nightmares. She constantly remembers her dreams. He rarely has thoughts racing through her mind. She rarely feels sad or depressed. She constantly has anxiety. She rarely has muscular tension. She constantly notices parts of her body jerk. She rarely kicks during the night. She denies having crawling and aching feelings in her legs and denies having leg pain during the night. She rarely grinds her teeth during sleep and never awakens with morning jaw pain. She denies being bothered by pain during the day and denies being awakened by pain during the night. She rarely wakes up feeling stiff in the morning. She rarely wakes up was sore or achy muscles. He occasionally wakes up with pain in the neck, spine or other joints The patient goes to bed between 9-10 p.m. on both weekdays and weekends. It takes her 5 minutes to fall asleep. She wakes up 3-4 times throughout the night to urinate. She is able to fall back asleep immediately. She wakes up between 630-7 a.m. on both weekdays and weekends. She typically gets 8 hours of sleep per night. She will stay in bed for an hour after waking up in the morning. She currently lives with her parents and her 16-year-old daughter. She will consume caffeinated beverages within 2 hours of bedtime. She does not engage in physical exercise before bedtime. She will read and watch television before falling asleep. She will take naps in the afternoon or the evening and they are refreshing. She drinks 4 caffeinated beverages per day. She denies tobacco, alcohol and recreational drug use. [facility] Past Medical History Medical History Abnormal Pap smear of cervix ASCUS/ NEG HPV-2008 Abnormal thyroid blood test Abnormal thyroid screen (blood) Acute non-recurrent maxillary sinusitis ADD (attention deficit disorder) Attention deficit hyperactivity disorder (ADHD), combined type, mild Bipolar disorder Blurry vision BMI 27.0-27.9,adult BMI 28.0-28.9,adult Caffeine abuse, continuous Chronic anxiety Chronic toe pain, left foot COVID-19 (~03/01/19) positive antibody test 04/30/2020 Depression DVT prophylaxis Encounter for IUD insertion 07/29/11 Mirena insertion Encounter for IUD removal 12/05/15 Mirena removal Encounter for screening for other viral diseases Hypersomnia (~2021) Hypothyroidism, unspecified (~12/2021) treated by signals collector/analyst, Dr. Galo 01/01/2022 Irregular periods Kidney stones Microcalcification of breast Migraine without aura and without status migrainosus, not intractable (~03/2021) Mild intermittent asthma in adult without co
[2022-03-31 13:12] VITALS: BMI 23.6
== END 2022-03-11 08:17 | disposition home or self-care (01) ==
LOC: ANHCSM 08:04
PROVIDERS: PCP Family Medicine; Visit Provider Family Medicine
DX: G47.10 Hypersomnia, unspecified (principal)
CPT/HCPCS: 95800

== ENCOUNTER 2022-05-07 11:00 | Outpatient (CLI) | payer OTHER, SELFPAY ==
--- NOTE | ~2022-05-07 | MM_ITS ---
EXAMINATION: MM diagnostic deshawn LT w nick HISTORY: Z TECHNIQUE: Additional 3-D tomosynthesis images of the left breast were performed and synthetic 2-D im ages were generated. CAD analysis was submitted and interpreted. COMPARISON: 02/24/2022 BREAST PARENCHYMAL COMPOSITION: The breasts are heterogeneously dense, which may obscure small masses FINDINGS: The calcifications in the upper outer quadrant of the left breast have a benign appearance, several of which layer on the medial lateral view, consistent with benign milk of calcium. No suspic ious masses or architectural distortion. IMPRESSION: 1. No evidence for malignancy in the left breast. 2. Routine yearly screening mammogram and regular clinical breast examination are recommended. BI-RADS Category 2: Benign finding(s). Reviewed, dictated and finalized at location A. IMPRESSION: 1. No evidence for malignancy in the left breast. 2. Routine yearly screening mammogram and regular clinical breast examination a re recommended. BI-RADS Category 2: Benign finding(s).
== END 2022-05-07 11:01 | disposition home or self-care (01) ==
LOC: ANHIMG 11:03
PROVIDERS: PCP Family Medicine; Visit Provider Obstetrics & Gynecology
DX: R92.0 Mammographic microcalcification found on diagnostic imaging of breast (principal)
CPT/HCPCS: 77061; 77065; G0279

== ENCOUNTER 2022-05-19 09:19 | Outpatient (CLI) | payer OTHER, SELFPAY ==
--- NOTE | ~2022-05-19 | XR_ITS ---
EXAMINATION: XR fl inj wrist LT for MR/CT DATE: 05/19/2022 10:27 INDICATION: Unspecified injury of left wrist and hand. TECHNIQUE: A time-out was performed to verify the patient's name, date of , and procedure to b e performed. The procedure including the risks, benefits, and alternatives was discussed with the pat ient. Risks discussed included bleeding and infection. The patient understood the risks and agreed to proceed. The skin overlying the left radioscaphoid joint was prepped and draped in usual sterile fas hion. Anesthetic was administered with 1% lidocaine subcutaneously. A 22 G needle was advanced unde r fluoroscopic guidance into the joint. Subsequently, injectate consisting of 3 mL of 1:200 Multihan ce, 1:4 1% lidocaine, and 1:4 Omnipaque 240 was instilled. The needle was removed and the entry site was cleaned and dressed. There were no immediate complications. Fluoroscopy exposure time was 0.1 m inutes. The total number of images was 2. FINDINGS: Real-time fluoroscopy demonstrates the needle and contrast in the radioscaphoid joint. IMPRESSION: 1. Successful left radioscaphoid joint injection of contrast for subsequent MR arthrography. Reviewed, dictated and finalized at location A.
--- NOTE | ~2022-05-19 | MR_ITS ---
EXAMINATION: MR wrist LT w con DATE: 05/19/2022 11:01 INDICATION: Left wrist TECHNIQUE: Magnetic resonance imaging (MRI) of the left wrist was performed with intra-articular cont rast but without intravenous contrast. Details of the joint injection have been dictated separately. Sequences performed include axial T1-weighted FSE, axial, sagittal and coronal T2-weighted FS FSE, sa gittal and coronal T1-weighted FS FSE and 3-D coronal FGRE. COMPARISON: None FINDINGS: Intrinsic ligaments: The scapholunate and lunotriquetral ligaments are normal. No extension of contrast from the wrist charissa nt into the midcarpal joint. Triangular fibrocartilage complex (TFCC): Delayed extension of contrast from the wrist joint into the distal radioulnar joint which is not appr eciated on the initial fluoroscopic images, likely related to a tiny perforation of the centrally att enuated fibrocartilaginous disc without identifiable discrete tear defect. The radial, foveal and sty loid attachments as well as the dorsal and volar radioulnar ligaments are normal. The ulnar collatera l ligament, ulnotriquetral ligament and meniscal homologue are normal. The extensor carpi ulnaris ten don sheath is normal. Extensor wrist: Extensor tendons of the wrist are normal. Couple tiny low signal intensity gas bubble surrounded by n oncontrast opacified fluid likely representing injected lidocaine within the tendon sheaths of the se cond and third dorsal compartments. Additional small amount of likely injected lidocaine and more sup erficial subcutaneous fat. Flexor wrist: The flexor tendons of the wrist are normal. No abnormality in the carpal tunnel with normal median n erve. Guyon's canal: Guyon's canal including the ulnar nerve and artery are normal. Bones/other: T2 hyperintense cystlike changes along the dorsal aspect of the lunate which appears to arise along t he insertion of the dorsal radiolunate ligament. Otherwise normal marrow signal. No fracture, avascul ar necrosis or pathologic marrow replacing process. Minimal osteoarthritis at the triscaphe and first carpal metacarpal joints. Joint spaces are otherwise normal. In addition to the presence of contrast into the distal radioulnar joint there is also extension of the injected contrast into the pisotriqu etral recesses as well as a multilobulated ganglion cyst along the volar aspect of the radial styloid process which measures approximately 17 x 9 x 5 mm extent. IMPRESSION: 1. Indiscernible full-thickness perforation likely at the central fibrocartilaginous portion of the t riangle fibrocartilage complex with delayed extension of contrast into the distal radioulnar joint bu t intact radial, foveal and styloid attachments as well as the dorsal and volar radioulnar ligaments. 2. 17 x 9 x 5 mm ganglion cyst arising from the volar aspect of the wrist joint and located volar to the radial styloid process. Reviewed, dictated and finalized at location A. IMPRESSION: 1. Indiscernible full-thickness perforation likely at the central fibrocartilag inous portion of the triangle fibrocartilage complex with delayed extension of contrast into the distal radioulnar joint but intact radial, foveal and styloid attachments as well as the dorsal and volar radioulnar ligaments. 2. 17 x 9 x 5 mm ganglion cyst arising from the volar aspect of the wrist joint and located volar to the radial styloid process.
== END 2022-05-19 09:20 | disposition home or self-care (01) ==
PROVIDERS: PCP Family Medicine; Visit Provider Orthopaedic Surgery
DX: M25.532 Pain in left wrist (principal); S69.92XA Unspecified injury of left wrist, hand and finger(s), initial encounter; M67.432 Ganglion, left wrist
CPT/HCPCS: 20605; 73222; 77002; A9577; Q9966

== ENCOUNTER → 2022-08-13 10:17 | Outpatient (CLI) | payer OTHER, SELFPAY ==
--- NOTE | ~2022-08-13 | XR_ITS ---
Clinical Indication: Cough PA and lateral views of the chest: Comparison: 09/25/2020 Findings: The lungs are clear, without evidence of focal consolidation or pleural effusion. Cardiome diastinal silhouette is within normal limits. Bones and soft tissues are unremarkable. Impression: Normal chest. Reviewed, dictated and finalized at location . Impression: Normal chest.
== END ==
PROVIDERS: PCP Family Medicine; Visit Provider Nurse Practitioner Family
DX: R53.83 Other fatigue (principal); R05.9 Cough, unspecified
CPT/HCPCS: 71046

== ENCOUNTER 2022-08-20 09:27 | Outpatient (CLI) | payer OTHER, SELFPAY ==
--- NOTE | ~2022-08-20 | MR_ITS ---
EXAMINATION: MR brain/brain stem wo/w con DATE: 08/20/2022 10:04 INDICATION: Focal motor weakness. Right face and arm numbness. TECHNIQUE: Magnetic resonance imaging (MRI) of the brain and brainstem was performed without and with 11 mL MultiHance intravenous contrast. COMPARISON: Brain MRI 03/16/2019 FINDINGS: There is no intracranial hemorrhage, acute infarction, or abnormal intracranial mass lesion . The ventricles are normal in size. There is a small right mastoid effusion. The orbits are normal. There is a mucous retention cyst in left maxillary sinus. IMPRESSION: 1. Normal brain. Reviewed, dictated and finalized at location A. IMPRESSION: 1. Normal brain.
== END 2022-08-20 09:28 | disposition home or self-care (01) ==
PROVIDERS: PCP Family Medicine; Visit Provider Internal Medicine Endocrinology, Diabetes & Metabolism
DX: R53.1 Weakness (principal)
CPT/HCPCS: 70553; A9577

== ENCOUNTER 2022-10-11 16:29 | Emergency (ER) | payer OTHER, SELFPAY ==
[2022-10-11 16:42] VITALS: BP 108/74; PULSE 95; RESP 16; TEMP 36.8; O2SAT 100
--- NOTE | 2022-10-11 16:43 | ED.GENADULT ---
HPI - General Adult General Chief complaint: Neuro Symptoms/Deficit Stated complaint: FACIAL NUMBNESS/DISORIENTED/BLURRED VISION Time Seen by Provider: 10/11/22 16:43 Source: patient and family Mode of arrival: ambulatory Limitations: no limitations History of Present Illness HPI narrative: 42 yo F with hx of depression, bipolar, hypothyroid presents with Mom with c/o L sided facial numbness, L arm weakness starting approx. 1 hr prior to arrival. Mom states when she got home from work pt c/o to her about facial numbness and her speech was slurred. Speech no longer slurred but mother thinks is delayed or slow to respond . Pt is alert. Answering questions appropriately. no facial droop or slurred speech notice. Reports numbness to face when touching L side. ambulatory with steady gait into [facility]. All systems reviewed and negative except as noted above. Related Data Home Medications Medication Instructions Recorded Confirmed levothyroxine 75 mcg tablet 75 mcg PO DAILY 04/30/22 10/11/22 (Unithroid) liothyronine 5 mcg tablet 5 mcg PO DAILY 04/30/22 10/11/22 cetirizine 10 mg tablet (Zyrtec) 10 mg PO DAILY PRN allergies 06/18/22 10/11/22 fluticasone propionate 50 1 spray intranasal DAILY 06/18/22 10/11/22 mcg/actuation nasal spray,suspension (Flonase Allergy Relief) mecobalamin (vitamin B12) 10,000 mcg IM WEEKLY 07/16/22 08/13/22 mcg solution for injection Allergies Allergy/AdvReac Type Severity Reaction Status Date / Time No Known Allergies Allergy Verified 07/16/22 07:16 Review of Systems Review of Systems: CONSTITUTIONAL: Denies fever, chills, or sweats. EYES: Denies visual changes, redness, or discharge. ENT: Denies rhinorrhea, congestion, sore throat, or otalgia. CARDIOVASCULAR: Denies chest pain, palpitations, or edema. RESPIRATORY: Denies cough or dyspnea. GASTROINTESTINAL: Denies abdominal pain, nausea, vomiting, or diarrhea. GENITOURINARY: Denies dysuria or hematuria. SKIN: Denies rash or itching. MUSCULOSKELETAL: Denies back pain, joint pain, or myalgia. NEUROLOGIC: Denies headache. Reports L facial numbness and L arm weakness. PSYCHIATRIC: Denies anxiety or depression. All other systems reviewed are negative, except as documented in HPI. [facility] Past Medical History Medical History (Updated 10/11/22 @ 16:48 by Amy Crawford NP) Abnormal Pap smear of cervix ASCUS/ NEG HPV-2008 Abnormal thyroid blood test Abnormal thyroid screen (blood) Acute non-recurrent maxillary sinusitis ADD (attention deficit disorder) Attention deficit hyperactivity disorder (ADHD), combined type, mild Bipolar disorder Blurry vision BMI 27.0-27.9,adult BMI 28.0-28.9,adult Caffeine abuse, continuous Chronic anxiety Chronic toe pain, left foot Cough Chest x-ray 08/13/2022 normal. COVID-19 (~03/01/19) positive antibody test 04/30/2020 Depression DVT prophylaxis Encounter for IUD insertion 07/29/11 Mirena insertion Encounter for IUD removal 12/05/15 Mirena removal Encounter for screening for other viral diseases Fatigue Ganglion cyst of dorsum of left wrist Hypersomnia (~2021) Home sleep study 03/10/2022 did not reveal TANGELA. Referral to tool sharpener further testing. Hypothyroidism, unspecified (~12/2021) treated by heading matcher and assembler, Dr. Galo 01/01/2022 Irregular periods Kidney stones Left wrist pain Microcalcification of breast Migraine without aura and without status migrainosus, not intractable (~03/2021) Mild intermittent asthma in adult without complication Neurological symptoms Nonunion of fracture of foot Overweight (BMI 25.0-29.9) Pain and swelling of toe of left foot (02/09/21) crush injury 02/09/2021 left 5th toe . X-ray on 04/15/2021 reveals possible healing fractures of the proximal and distal phalanx Pharyngitis Screening mammogram, encounter for Seasonal allergic rhinitis Vaginal delivery 08/17/05 post hemorrhage Viral gastroenteritis Surgical History Surgical Hist
[2022-10-11 16:45] VITALS: BP 108/74; PULSE 95; RESP 16; TEMP 36.8; O2SAT 100
== END 2022-10-11 17:08 | disposition short-term general hospital (02) ==
PROVIDERS: Emergency Provider Nurse Practitioner Family; PCP Family Medicine
DX: R20.2 Paresthesia of skin (principal); Z87.891 Personal history of nicotine dependence; J45.909 Unspecified asthma, uncomplicated; F90.9 Attention-deficit hyperactivity disorder, unspecified type; F32.A Depression, unspecified; F41.9 Anxiety disorder, unspecified; Z86.16 Personal history of COVID-19
CPT/HCPCS: 99215; G0463

== ENCOUNTER 2022-10-11 17:25 | Emergency (ER) | payer OTHER, SELFPAY ==
--- NOTE | ~2022-10-11 | CT_ITS ---
EXAMINATION: CTA BRAIN/CAROTID DATE: 10/11/2022 17:37 INDICATION: Left-sided numbness and facial droop TECHNIQUE: Computed tomographic angiography (CTA) of the head and neck was performed with 100 mL Omni paque-350 intravenous contrast. Multiplanar reconstructions and maximum intensity projection 3D-recon structions of the carotid arteries and of the intracranial arteries were created by the technologist on a separate workstation. Precontrast CT of the head was also obtained. Automated exposure control and iterative reconstruction technique were employed.The dose-length product was 1443.31 mGy-cm. COMPARISON: Brain MR dated 08/20/2022 and PET/CT dated 03/15/2019 FINDINGS: Carotid arteries: Visualized portion of the thoracic aorta is normal in caliber with no atherosclerotic plaque or disse ction. Bilateral vertebral arteries are codominant. There is no atherosclerotic plaque with 0% stenos is of the right and left carotid bulbs relative to normal distal artery lumen diameter (NASCET criter ia). Cervical spine and soft tissues are unremarkable. Minimal biapical pleural-parenchymal scarring. Head: No acute intracranial hemorrhage, acute infarction or abnormal extra axial fluid collection. Ventricl es are normal and symmetric. No mass/mass effect. No abnormally enhancing brain lesions on postcontra st imaging. The orbitsand paranasal sinuses are normal. Small right mastoid effusion. Intracranial arteries There is no hemodynamically significant stenosis in the vertebral, basilar and internal carotid arter ies. Vertebral arteries are codominant. There are no aneurysms identified. Both A1 and P1 segments a re patent. Cerebral arterial arborization appears symmetric. IMPRESSION: 1. 0% stenosis of the right and left carotid bulbs relative to normal distal artery lumen diameter (N ASCET criteria). 2. Normal brain. No acute intracranial process or abnormally enhancing brain lesions. 3. Normal cerebral CT angiogram with no hemodynamic significant stenosis, aneurysm or thrombosis. Reviewed, dictated and finalized at location A. IMPRESSION: 1. 0% stenosis of the right and left carotid bulbs relative to normal distal ar domi lumen diameter (NASCET criteria). 2. Normal brain. No acute intracranial process or abnormally enhancing brain le sions. 3. Normal cerebral CT angiogram with no hemodynamic significant stenosis, aneur ysm or thrombosis.
--- NOTE | 2022-10-11 17:28 | ECG_ITS ---
Measurements Intervals [place] Rate: 95 P: 61 MA: 159 QRS: 49 QRSD: 86 T: 51 QT: 331 QTc: 417 Interpretive Statements SINUS RHYTHM NORMAL ECG COMPARED TO ECG 09/25/2020 10:49:50 NO SIGNIFICANT CHANGES Electronically Signed On 10-12-2022 11:58:35 CDT by Willian Olsen M.D.
--- NOTE | 2022-10-11 17:33 | ED.NEUROSD ---
HPI - Neuro Symptoms/Deficit General Chief Complaint: Suspected CVA Stated Complaint: CVA Time Seen by Provider: 10/11/22 17:27 History of Present Illness HPI Narrative: Patient is a 42-year-old female with a history of hypothyroidism, bipolar disorder, migraines presenting as a stroke alert. Patient states that she has had a headache for the last 2 days. Approximately 2 and half hours ago she noticed that the left side of her face felt numb and her mom said her speech was slurred. She presented to urgent care who advised that she come to the ER for further evaluation. Patient states that she feels confused and her speech is still slurred. States that the whole left side of her body feels numb. Related Data Home Medications Medication Instructions Recorded Confirmed levothyroxine 75 mcg tablet 75 mcg PO DAILY 04/30/22 10/11/22 (Unithroid) liothyronine 5 mcg tablet 5 mcg PO DAILY 04/30/22 10/11/22 cetirizine 10 mg tablet (Zyrtec) 10 mg PO DAILY PRN allergies 06/18/22 10/11/22 fluticasone propionate 50 1 spray intranasal DAILY 06/18/22 10/11/22 mcg/actuation nasal spray,suspension (Flonase Allergy Relief) mecobalamin (vitamin B12) 10,000 10,000 mcg IM WEEKLY 07/16/22 10/11/22 mcg solution for injection Allergies Allergy/AdvReac Type Severity Reaction Status Date / Time No Known Allergies Allergy Verified 07/16/22 07:16 Review of Systems Review of Systems: All systems reviewed & are unremarkable except as noted in HPI and below PMFSH Past Medical History Medical History (Updated 10/15/22 @ 00:00 by Background Daemon) Abnormal Pap smear of cervix ASCUS/ NEG HPV-2008 Abnormal thyroid blood test Abnormal thyroid screen (blood) Acute non-recurrent maxillary sinusitis ADD (attention deficit disorder) Attention deficit hyperactivity disorder (ADHD), combined type, mild Bipolar disorder Blurry vision BMI 27.0-27.9,adult BMI 28.0-28.9,adult Caffeine abuse, continuous Chronic anxiety Chronic toe pain, left foot Cough Chest x-ray 08/13/2022 normal. COVID-19 (~03/01/19) positive antibody test 04/30/2020 Depression DVT prophylaxis Encounter for IUD insertion 07/29/11 Mirena insertion Encounter for IUD removal 12/05/15 Mirena removal Encounter for screening for other viral diseases Fatigue Ganglion cyst of dorsum of left wrist Hypersomnia (~2021) Home sleep study 03/10/2022 did not reveal TANGELA. Referral to principal mechanical engineer further testing. Hypothyroidism, unspecified (~12/2021) treated by entertainment dancer, Dr. Galo 01/01/2022 Irregular periods Kidney stones Left wrist pain Microcalcification of breast Migraine Migraine without aura and without status migrainosus, not intractable (~03/2021) CT angiogram of the head and neck on 10/13/2022 was unremarkable. Mild intermittent asthma in adult without complication Neurological symptoms Nonunion of fracture of foot Overweight (BMI 25.0-29.9) Pain and swelling of toe of left foot (02/09/21) crush injury 02/09/2021 left 5th toe . X-ray on 04/15/2021 reveals possible healing fractures of the proximal and distal phalanx Pharyngitis Screening mammogram, encounter for Seasonal allergic rhinitis Vaginal delivery 08/17/05 post hemorrhage Viral gastroenteritis Surgical History Surgical History History of cholecystectomy (~2009) History of dilatation and curettage History of orthopedic surgery left toe surgery flatbed ran over foot History of right salpingo-oophorectomy History of tubal ligation (12/05/14) Status post cystoscopy Status post tonsillectomy Family History Family History Father Hypertension Mother Breast cancer Social History Social History Smoking status: Former smoker Tobacco type: cigarettes Additional smoking assessment comments: SMOKE
[2022-10-11 17:40] LABS: Glucose Point of Care 87 mg/dl (65-105)
[2022-10-11 17:41] LABS: Basophils Percent Auto 0.2 % (0.2-1.2); Eosinophils Percent Auto 0.4 % (0-4.4); Hematocrit 40.9 % (37.0-47.0); Hemoglobin 12.8 g/dL (12.0-15.0); Immature Granulocyte Absolute 0.04 K/mm3 (0.00-0.031); Immature Granulocyte Percent A 0.4 % (0-0.5); Lymphocytes Absolute Auto 2.19 K/mm3 (0.9-3.2); Lymphocytes Percent Auto 21.3 % (18.3-44.2); Mean Corpuscular HGB Conc 31.3 g/dl (32-36); Mean Corpuscular Hemoglobin 29.2 pg (26-34); Mean Corpuscular Volume 93.2 fl (80-100); Mean Platelet Volume 11.8 fl (7.4-10.4); Monocytes Absolute Auto 0.8 K/mm3 (0.1-0.6); Monocytes Percent Auto 7.6 % (2.6-8.5); Neutrophils Absolute Auto 7.2 K/mm3 (1.3-6.7); Neutrophils Percent Auto 70.1 % (45.5-73.1); Platelet Count Result 216 k/mm3 (150-375); Red Blood Count 4.39 M/mm3 (4.2-5.4); Red Cell Distribution Width 12.2 % (11.5-14.5); White Blood Count 10.3 K/mm3 (4.5-10.0)
[2022-10-11 17:43] LABS: Estimated Glomerular Filt Rate > 60
[2022-10-11 17:44] VITALS: BP 134/81; PULSE 89; RESP 16; TEMP 36.7; O2SAT 100
[2022-10-11 17:51] LABS: Ethanol < 10 mg/dL (<10); INR 0.9; Prothrombin Time 12.1 Seconds (11.1-14.7)
[2022-10-11 17:52] LABS: Alanine Aminotransferase 19 U/L (6-35); Albumin Level 4.3 g/dL (3.5-5.1); Alkaline Phosphatase 85 U/L (38-126); Anion Gap 7 mmol/L (8-16); Aspartate Amino Transferase 21 U/L (14-36); Bilirubin,Total 0.3 mg/dL (0.2-1.3); Blood Urea Nitrogen 14 mg/dL (7-17); Carbon Dioxide 24 mmol/L (22-30); Chloride 103 mmol/L (98-107); Estimated Glomerular Filt Rate > 60; Glucose 96 mg/dL (65-110); Partial Thromboplastin Time 29.6 SECONDS (22.3-36.8); Sodium 134 mmol/L (137-145)
[2022-10-11] MEDS: diphenhydrAMINE HCl INJ 50 MG/ML VIAL IV PUSH (18:30)
[2022-10-11] MEDS: PROCHLORPERAZINE EDISYLATE 10 MG/2 ML VIAL IV PUSH (18:39)
[2022-10-11] MEDS: KETOROLAC 15 MG/ML VIAL (*BKC) IV PUSH (18:40)
[2022-10-11] MEDS: SODIUM CHLORIDE 0.9% IV 1,000 ML 999 ML IV CONT ×2 (18:41→18:42)
[2022-10-11] MEDS: MAGNESIUM SULF 2 GM/WATER 50ML 2 GM/50 ML BAG IVPB (18:45)
[2022-10-11 18:51] LABS: Appearance Urine Clear (Clear); Bacteria Urine Rare /hpf; Bilirubin Urine Negative (Negative); Blood Urine 2+ (Negative); Color Urine Yellow (Yellow); Glucose Urine UA Negative (Negative); Ketones Urine Negative (Negative); Leukocyte Esterase Ur Negative LEU/UL (Negative); Nitrate Urine Negative (Negative); Non Pathogenic Casts 0-2; Protein Urine Negative (Negative); Squamous Epithelial Cell Urine None seen /hpf (Few); Urobilinogen Urine 0.2 mg/dL (<2.0); WBC Urine 0-5 /hpf; pH Urine 6.5 (5.0-9.0)
[2022-10-11 19:14] LABS: Add Urine Microscopic? YES; Specific Grav Ur 1.062 (1.001-1.035)
[2022-10-11 19:17] VITALS: BP 113/65; PULSE 87; RESP 15; O2SAT 98
[2022-10-11 19:35] LABS: Amphetamine Screen Urine Positive (Negative); Barbiturate Screen Urine Negative (Negative); Benzodiazepines Screen Urine Negative (Negative); Cannabinoid Screen Urine Negative (Negative); Cocaine Screen Urine Negative (Negative); Methadone Screen Urine Negative (Negative); Opiate Screen Urine Negative (Negative); Phencyclidine Screen Urine Negative (Negative)
[2022-10-11 20:27] VITALS: BP 106/52; PULSE 86; RESP 15; O2SAT 98
== END 2022-10-11 20:28 | disposition home or self-care (01) ==
PROVIDERS: Emergency Provider Emergency Medicine; PCP Family Medicine
DX: G43.909 Migraine, unspecified, not intractable, without status migrainosus (principal); R20.2 Paresthesia of skin; R47.1 Dysarthria and anarthria; R29.810 Facial weakness; E03.9 Hypothyroidism, unspecified; Z87.891 Personal history of nicotine dependence; Z79.899 Other long term (current) drug therapy
CPT/HCPCS: 36415; 70496; 70498; 80053; 80307; 81001; 81025; 82948; 85025; 85610; 85730; 93005; 96365; 96375; 99284; J0780; J1200; J1885; J3475; J7030; Q9967

== ENCOUNTER 2022-10-13 23:33 | Emergency (ER) | payer OTHER, SELFPAY ==
--- NOTE | ~2022-10-13 | CT_ITS ---
Non-contrast Head CT History: Left-sided weakness COMPARISON: 10/11/2022 Technique: Axial non-contrast imaging of the brain was performed. Dose reduction technique was used on this scan by utilizing automated exposure control and iterative reconstruction technique. The dose -length product (DLP) was 605.33 mGy-cm. Findings: There is no evidence of intracranial hemorrhage, mass lesion, or acute infarct. Brain par enchyma appears normal. The ventricles and subarachnoid spaces are normal in size. The calvarium ap pears normal. The visualized paranasal sinuses and mastoid air cells are clear. Impression: No significant abnormality seen. Reviewed, dictated and finalized at location . Impression: No significant abnormality seen.
--- NOTE | ~2022-10-13 | CT_ITS ---
CT ANGIOGRAM NECK AND HEAD History: Left-sided numbness. Technique: Serial spiral axial images through the head and neck were obtained during arterial phase I V injection of 100 cc of Omnipaque 350. 3-D postprocessing and MIP images were then reconstructed on the remote workstation. Dose reduction technique was used on this scan by utilizing automated exposur e control and iterative reconstruction technique. The dose-length product (DLP) was 885.06 mGy-cm. CTA neck findings: Bilateral vertebral arteries are patent. Bilateral common carotid, internal carot id, and external carotid arteries are patent. No large vessel occlusion. No stenosis or aneurysm. The proximal right internal carotid artery demonstrates 0% stenosis relative to the normal distal artery lumen diameter. The proximal left internal carotid artery demonstrates 0% stenosis relative to the n ormal distal artery lumen diameter. CTA head findings: Distal vertebral arteries, basilar artery, and posterior cerebral arteries are pat ent. Distal internal carotid arteries, middle cerebral arteries, and anterior cerebral arteries are p atent. No large vessel occlusion. No stenosis or aneurysm. Impression: No significant abnormality seen. Reviewed, dictated and finalized at location . Impression: No significant abnormality seen.
[2022-10-14 00:15] LABS: Alveolar/Arterial O2 Gradient 15.2 mmHg; Base Excess ABG 0.7 mEq/l (+/-2.0); Fractional Inspired Oxygen 21 %; HCO3 ABG 21.4 mEq/l (22.0-26.0); Oxygen Saturation ABG 98.5 % (95.0-100.0); Oxyhemoglobin 97.6 % THb (90.0-100.0); PCO2 ABG 24.2 mmHg (35.0-45.0); PO2 ABG 105.6 mmHg (80.0-100.0); PO2 FiO2 Ratio Arterial Blood 5.03 %; Total Hemoglobin 12.3 g/dL (12.0-18.0)
[2022-10-14 00:16] LABS: Modified Allen's Test Pass; Site Drawn LEFT RADIAL; pH ABG 7.565 (7.350-7.450)
[2022-10-14 00:17] LABS: Device ROOM AIR
[2022-10-14] MEDS: SODIUM CHLORIDE 0.9% IV 1,000 ML 999 ML IV CONT (00:18)
[2022-10-14] MEDS: METOCLOPRAMIDE HCL INJ 10 MG/2 ML VIAL IV PUSH (00:18)
[2022-10-14 00:25] VITALS: BP 123/67; PULSE 52; PULSE 55; RESP 23; RESP 24; TEMP 36.9; O2SAT 12; O2SAT 98
[2022-10-14 00:26] LABS: Basophils Absolute Auto 0.1 K/mm3 (0.0-0.1); Basophils Percent Auto 0.4 % (0.2-1.2); Eosinophils Absolute Auto 0.1 K/mm3 (0-0.3); Eosinophils Percent Auto 0.6 % (0-4.4); Hematocrit 38.4 % (37.0-47.0); Hemoglobin 12.4 g/dL (12.0-15.0); Immature Granulocyte Absolute 0.04 K/mm3 (0.00-0.031); Immature Granulocyte Percent A 0.3 % (0-0.5); Lymphocytes Absolute Auto 2.76 K/mm3 (0.9-3.2); Lymphocytes Percent Auto 20.4 % (18.3-44.2); Mean Corpuscular HGB Conc 32.3 g/dl (32-36); Mean Corpuscular Hemoglobin 29.6 pg (26-34); Mean Corpuscular Volume 91.6 fl (80-100); Mean Platelet Volume 12.1 fl (7.4-10.4); Monocytes Absolute Auto 0.9 K/mm3 (0.1-0.6); Monocytes Percent Auto 6.6 % (2.6-8.5); Neutrophils Absolute Auto 9.7 K/mm3 (1.3-6.7); Neutrophils Percent Auto 71.7 % (45.5-73.1); Platelet Count Result 241 k/mm3 (150-375); Red Blood Count 4.19 M/mm3 (4.2-5.4); Red Cell Distribution Width 12.3 % (11.5-14.5); White Blood Count 13.6 K/mm3 (4.5-10.0)
[2022-10-14 00:36] LABS: Lactic Acid Reflex 1.4 mmol/L (0.7-2.0)
[2022-10-14 00:37] LABS: Alanine Aminotransferase 18 U/L (6-35); Albumin Level 4.5 g/dL (3.5-5.1); Alkaline Phosphatase 95 U/L (38-126); Anion Gap 12 mmol/L (8-16); Aspartate Amino Transferase 25 U/L (14-36); Bilirubin,Total 0.6 mg/dL (0.2-1.3); Blood Urea Nitrogen 10 mg/dL (7-17); Calcium 9.7 mg/dL (8.4-10.2); Carbon Dioxide 20 mmol/L (22-30); Chloride 104 mmol/L (98-107); Estimated CRCL calculation 110 ml/min; Estimated Glomerular Filt Rate > 60; Glucose 95 mg/dL (65-110); Magnesium 1.8 mg/dL (1.6-2.3); Potassium 3.8 mmol/L (3.4-5.0); Sodium 136 mmol/L (137-145)
[2022-10-14 00:38] LABS: INR 0.9; Prothrombin Time 12.6 Seconds (11.1-14.7)
[2022-10-14 00:40] LABS: Partial Thromboplastin Time 32.2 SECONDS (22.3-36.8)
[2022-10-14 00:42] LABS: Ethanol < 10 mg/dL (<10)
[2022-10-14 00:48] LABS: Troponin I < 0.012 ng/mL (0.000-0.034)
[2022-10-14 00:50] LABS: Estimated CRCL calculation 93 ml/min; Estimated Glomerular Filt Rate > 60
--- NOTE | 2022-10-14 01:46 | ED.NEUROSD ---
HPI - Neuro Symptoms/Deficit General Chief Complaint: Suspected CVA Stated Complaint: stroke like symptoms Time Seen by Provider: 10/13/22 23:36 History of Present Illness HPI Narrative: Patient 42-year-old female presents the emergency department with chief complaint of left upper extremity drawing up and hyperventilating. Patient recently was seen in the emergency department after having a complex migraine and this evening screamed out and started hyperventilating the patient then became less responsive and then was holding her arm in a cramped slight position Related Data Home Medications Medication Instructions Recorded Confirmed levothyroxine 75 mcg tablet 75 mcg PO DAILY 04/30/22 10/11/22 (Unithroid) liothyronine 5 mcg tablet 5 mcg PO DAILY 04/30/22 10/11/22 cetirizine 10 mg tablet (Zyrtec) 10 mg PO DAILY PRN allergies 06/18/22 10/11/22 fluticasone propionate 50 1 spray intranasal DAILY 06/18/22 10/11/22 mcg/actuation nasal spray,suspension (Flonase Allergy Relief) mecobalamin (vitamin B12) 10,000 10,000 mcg IM WEEKLY 07/16/22 10/11/22 mcg solution for injection Allergies Allergy/AdvReac Type Severity Reaction Status Date / Time No Known Allergies Allergy Verified 07/16/22 07:16 Review of Systems Review of Systems: A 10 system review of systems was completed on the patient and is negative except for what is stated in the HPI. Nursing and ancillary documentation was reviewed. [facility] Past Medical History Medical History Abnormal Pap smear of cervix ASCUS/ NEG HPV-2008 Abnormal thyroid blood test Abnormal thyroid screen (blood) Acute non-recurrent maxillary sinusitis ADD (attention deficit disorder) Attention deficit hyperactivity disorder (ADHD), combined type, mild Bipolar disorder Blurry vision BMI 27.0-27.9,adult BMI 28.0-28.9,adult Caffeine abuse, continuous Chronic anxiety Chronic toe pain, left foot Cough Chest x-ray 08/13/2022 normal. COVID-19 (~03/01/19) positive antibody test 04/30/2020 Depression DVT prophylaxis Encounter for IUD insertion 07/29/11 Mirena insertion Encounter for IUD removal 12/05/15 Mirena removal Encounter for screening for other viral diseases Fatigue Ganglion cyst of dorsum of left wrist Hypersomnia (~2021) Home sleep study 03/10/2022 did not reveal TANGELA. Referral to solar project manager further testing. Hypothyroidism, unspecified (~12/2021) treated by assurance associate, Dr. Galo 01/01/2022 Irregular periods Kidney stones Left wrist pain Microcalcification of breast Migraine without aura and without status migrainosus, not intractable (~03/2021) Mild intermittent asthma in adult without complication Neurological symptoms Nonunion of fracture of foot Overweight (BMI 25.0-29.9) Pain and swelling of toe of left foot (02/09/21) crush injury 02/09/2021 left 5th toe . X-ray on 04/15/2021 reveals possible healing fractures of the proximal and distal phalanx Pharyngitis Screening mammogram, encounter for Seasonal allergic rhinitis Vaginal delivery 08/17/05 post hemorrhage Viral gastroenteritis Surgical History Surgical History History of cholecystectomy (~2009) History of dilatation and curettage History of orthopedic surgery left toe surgery flatbed ran over foot History of right salpingo-oophorectomy History of tubal ligation (12/05/14) Status post cystoscopy Status post tonsillectomy Family History Family History Father Hypertension Mother Breast cancer Social History Social History Smoking status: Former smoker Tobacco type: cigarettes Additional smoking assessment comments: 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
[2022-10-14 02:16] VITALS: O2SAT 96
[2022-10-14 02:17] VITALS: BP 115/69; O2SAT 100
[2022-10-14 02:29] LABS: Appearance Urine Clear (Clear); Bacteria Urine None Seen /hpf; Bilirubin Urine Negative (Negative); Blood Urine 2+ (Negative); Color Urine Yellow (Yellow); Glucose Urine UA Negative (Negative); Ketones Urine 1+ mg/dL (Negative); Leukocyte Esterase Ur Negative LEU/UL (Negative); Nitrate Urine Negative (Negative); Non Pathogenic Casts 0-2; Protein Urine Negative (Negative); Squamous Epithelial Cell Urine None seen /hpf (Few); Urobilinogen Urine 0.2 mg/dL (<2.0); WBC Urine 0-5 /hpf; pH Urine 7.5 (5.0-9.0)
[2022-10-14 02:30] LABS: Add Urine Microscopic? YES; Specific Grav Ur 1.056 (1.001-1.035)
[2022-10-14] MEDS: KETOROLAC 30 MG/ML VIAL (*BKC) IV PUSH (02:40)
[2022-10-14 02:43] LABS: Barbiturate Screen Urine Negative (Negative); Benzodiazepines Screen Urine Negative (Negative)
[2022-10-14 02:44] LABS: Amphetamine Screen Urine Positive (Negative); Cannabinoid Screen Urine Negative (Negative); Cocaine Screen Urine Negative (Negative); Opiate Screen Urine Negative (Negative); Phencyclidine Screen Urine Negative (Negative)
[2022-10-14 03:12] LABS: Methadone Screen Urine Negative (Negative)
== END 2022-10-14 03:38 | disposition home or self-care (01) ==
PROVIDERS: Emergency Provider Emergency Medicine; PCP Family Medicine
DX: R06.4 Hyperventilation (principal); G43.909 Migraine, unspecified, not intractable, without status migrainosus; E03.9 Hypothyroidism, unspecified; J45.20 Mild intermittent asthma, uncomplicated; E66.3 Overweight; Z68.28 Body mass index [BMI] 28.0-28.9, adult; F90.2 Attention-deficit hyperactivity disorder, combined type; F31.9 Bipolar disorder, unspecified; F41.9 Anxiety disorder, unspecified; Z86.16 Personal history of COVID-19; Z87.891 Personal history of nicotine dependence
CPT/HCPCS: 36415; 36600; 70450; 70496; 70498; 80053; 80307; 81001; 82805; 83605; 83735; 84484; 85025; 85610; 85730; 96361; 96374; 96375; 99284; J1885; J2765; J7030; Q9967

== ENCOUNTER 2023-08-02 00:34 | Day surgery (SDC) | payer OTHER, SELFPAY ==
[2023-07-29 11:08] VITALS: BMI 30.2
[2023-08-02 11:45] VITALS: BP 114/71; PULSE 76; RESP 18; TEMP 36.4; O2SAT 100
[2023-08-02] MEDS: LACTATED RINGERS 1,000 ML 150 ML IV CONT (11:58)
--- NOTE | 2023-08-02 12:18 | WPDANESEPPF ---
Anes - Initial Pre Proc Eval Procedure: Operation Date: 08/02/23 13:00 Proposed Procedures p Colonoscopy - Peña Cantu MD Date/Time: 08/02/23 12:18 Surgeon: Peña Cantu MD Pre Op Diagnosis: Full incontinence of feces, Disease of anus/rectum Patient Data Age: 43 Gender: F Height: 1.55 m Weight: 70.8 kg Last Vital Signs Temp 36.4 C 08/02/23 11:45 Pulse 76 08/02/23 11:45 Resp 18 08/02/23 11:45 BP 114/71 08/02/23 11:45 Pulse Ox 100 08/02/23 11:45 O2 Del Method Room Air 08/02/23 11:45 Allergies Allergy/AdvReac Type Severity Reaction Status Date / Time No Known Allergies Allergy Verified 07/19/23 10:46 Home Medications Medication Instructions Recorded Confirmed Type cetirizine 10 mg tablet (Zyrtec) 10 mg PO DAILY PRN allergies 06/18/22 07/29/23 History fluticasone propionate 50 1 spray intranasal DAILY 06/18/22 07/29/23 History mcg/actuation nasal spray,suspension (Flonase Allergy Relief) escitalopram oxalate 20 mg tablet 20 mg PO DAILY #30 tabs 07/01/22 07/29/23 Rx (Lexapro) omeprazole 20 mg capsule,delayed 20 mg PO DAILY #90 caps 08/13/22 07/29/23 Rx release mecobalamin (vitamin B12) 10,000 1,000 mcg IM WEEKLY 11/10/22 07/29/23 History mcg solution for injection metoprolol succinate 25 mg 25 mg PO DAILY #30 tabs 11/10/22 07/29/23 Rx tablet,extended release 24 hr riboflavin (vitamin B2) 400 mg 400 mg PO DAILY 11/10/22 07/29/23 History tablet zolmitriptan 5 mg tablet (Zomig) See Rx Instructions PO .COMPLEX 11/10/22 07/29/23 Rx #14 tabs liothyronine 5 mcg tablet 5 mcg PO . q.a.m. #90 tabs 12/21/22 07/29/23 Rx levothyroxine 75 mcg tablet 75 mcg PO . Q.a.m. #90 tabs 01/05/23 07/29/23 Rx (Unithroid) buspirone 10 mg tablet 10 mg PO QHS #30 tabs 03/16/23 07/29/23 Rx gabapentin 100 mg capsule 100 mg PO DAILY 03/16/23 07/29/23 History cefdinir 300 mg capsule 300 mg PO Q12H #20 caps 07/15/23 07/29/23 Rx dextroamphetamine-amphetamine 10 10 mg PO BID #60 tabs 07/19/23 07/29/23 Rx mg tablet (Adderall) Patient hx anesthesia problems: none Family hx anesthesia problems: none Results Review: All pre-operative results and documents have been reviewed as part of the pre-operative evaluation. [facility] Past Medical History Medical History (Updated 07/19/23 @ 13:30 by Blayne Davidson MD) Abnormal Pap smear of cervix ASCUS/ NEG HPV-2008 Abnormal thyroid blood test Abnormal thyroid screen (blood) Acute non-recurrent maxillary sinusitis ADD (attention deficit disorder) Anal pain Attention deficit hyperactivity disorder (ADHD), combined type, mild Bipolar disorder Blurry vision BMI 27.0-27.9,adult BMI 28.0-28.9,adult BMI 30.0-30.9,adult Caffeine abuse, continuous Patient stopped all caffeine. Chronic anxiety Chronic toe pain, left foot Cough Chest x-ray 08/13/2022 normal. COVID-19 (~03/01/19) positive antibody test 04/30/2020 Depression DVT prophylaxis Encounter for IUD insertion 07/29/11 Mirena insertion Encounter for IUD removal 12/05/15 Mirena removal Encounter for screening for other viral diseases Fatigue Fecal incontinence Ganglion cyst of dorsum of left wrist Hemiplegic migraine Hemorrhoids Hypersomnia (~2021) Home sleep study 03/10/2022 did not reveal TANGELA. Referral to pulverizer feeder further testing. Hypothyroidism, unspecified (~12/2021) treated by supervisor microfilm duplicating unit, Dr. Galo 01/01/2022 Irregular periods Kidney stones Left wrist pain Microcalcification of breast Migraine Migraine without aura and without status migrainosus, not intractable (~03/2021) CT angiogram of the head and neck on 10/13/2022 was unremarkable. Mild intermittent asthma in adult without complication Neurological symptoms Nonunion of fracture of foot Obesity (BMI 30.0-34.9) Overweight (BMI 25.0-29.9) Pain and swelling of toe of left foot (02/09/21) crush injury 02/09/2021 left 5th toe . X-ray on 04/15/2021 reveals possi
--- NOTE | 2023-08-02 13:18 | WPDHPUPDATE1 ---
History and Physical Update Update Date/Time: 08/02/23 13:18 History and Physical has been reviewed, including an updated exam of the patient. There are NO changes in the patient's condition. Risks, benefits, and alternatives have been discussed and questions answered. Patient agrees to proceed with procedure.
[2023-08-02 13:38] VITALS: BP 105/60; PULSE 65; RESP 20; O2SAT 100
[2023-08-02 13:48] VITALS: BP 99/60; PULSE 79; RESP 19; O2SAT 100
[2023-08-02 13:58] VITALS: BP 102/64; PULSE 71; RESP 20; O2SAT 100
== END 2023-08-02 14:02 | disposition home or self-care (01) ==
PROVIDERS: PCP Family Medicine; Referring Provider Nurse Practitioner Family; Visit Provider Internal Medicine Gastroenterology
PROC: 0DJD8ZZ Inspection of Lower Intestinal Tract, Via Natural or Artificial Opening Endoscopic (ICD-10-PCS; CPT 45378; principal; 2023-08-02 13:00)
DX: R15.9 Full incontinence of feces (principal); F90.9 Attention-deficit hyperactivity disorder, unspecified type; F31.9 Bipolar disorder, unspecified; F41.9 Anxiety disorder, unspecified; E03.9 Hypothyroidism, unspecified; Z87.891 Personal history of nicotine dependence
CPT/HCPCS: 45378; J2001; J2371; J2704; J7120

== ENCOUNTER 2023-11-29 12:20 | Emergency (ER) | payer MEDICAID, SELFPAY ==
--- NOTE | ~2023-11-29 | US_ITS ---
US pelvic complete w TV Ordering provider: Kiet Lee MD History: . left adnexal pain . Comparison: None. Technique: Transabdominal and endovaginal ultrasound of the pelvis (Doppler ultrasound interrogation techniques used as needed for this exam.) FINDINGS: CERVIX: Nabothian cyst is noted. UTERUS: Measures 7.2x 2.7x 3.5 cm in length which is within normal limits and is anteverted. No myom etrial masses. ENDOMETRIUM: Normal in thickness measuring 5.3 mm. (Note: the premenopausal endometrium may measure u p to 16 mm when in the secretory phase.) No endometrial masses, cysts or fluid. Prominent vessels seen in the uterus and pelvis which may indicate pelvic congestion syndrome. CUL DE SAC: Trace of free fluid. RIGHT OVARY: Surgically removed. LEFT OVARY: Normal in size measuring 3.2x 2.4x 2.5 cm. Normal echotexture. Doppler vascular flow pres ent. Dominant follicle is noted measuring 0.7 x 1.1 x 1 cm.. ADNEXA: Normal. No mass. IMPRESSION: Nabothian cyst in the ovary. Trace of fluid in the cul-de-sac. Otherwise, normal pelvic ultrasound. Reviewed, dictated and finalized at location A. IMPRESSION: Nabothian cyst in the ovary. Trace of fluid in the cul-de-sac. Otherwise, itzel l pelvic ultrasound.
--- NOTE | ~2023-11-29 | CT_ITS ---
EXAMINATION: CT abdomen pelvis w con DATE: 11/29/2023 14:42 INDICATION: Left-sided abdominal pain TECHNIQUE: Computed tomography (CT) of the abdomen and pelvis was performed with 100 mL Omnipaque-350 intravenous contrast. Automated exposure control and iterative reconstruction technique were employe d. The dose-length product was 703.52 mGy-cm. COMPARISON: 09/30/2018 FINDINGS: Minimal dependent atelectasis in the bilateral lower lobes. Heart size is normal. No pericardial or p leural effusion. Chronic mild dilation of the common bile duct which measures up to 10 mm maximal jonathan meter likely related to prior cholecystectomy with surgical clips at the gallbladder fossa. 1.[address] in the left hepatic lobe. Spleen, pancreas, bilateral adrenal glands and right kidney are normal. 3 mm nonobstructing stone in the interpolar region of the left kidney. 4-5 mm low-attenuation left re nal cyst. Bowels including appendix are normal. 1.9 cm peripherally enhancing likely corpus luteum cy st in the left ovary. Bladder an anteverted uterus are normal. The right ovary is not visualized and reportedly surgically absent. There is a minimal amount of likely physiologic free fluid at the right adnexal region. No abscess or free intraperitoneal gas. Bones are unremarkable. IMPRESSION: 1. 1.9 cm peripherally enhancing likely corpus luteum cyst at the left ovary. No other acute intra-ab dominal/pelvic process. 2. 3 mm nonobstructing left renal stone. Reviewed, dictated and finalized at location A. IMPRESSION: 1. 1.9 cm peripherally enhancing likely corpus luteum cyst at the left ovary. N o other acute intra-abdominal/pelvic process. 2. 3 mm nonobstructing left renal stone.
[2023-11-29 12:21] VITALS: BP 124/78; PULSE 80; RESP 16; TEMP 36.5; O2SAT 100
[2023-11-29 12:33] VITALS: BP 130/76; PULSE 77; RESP 15; O2SAT 100
--- NOTE | 2023-11-29 12:52 | PC.NURSE ---
Pt to US via wheelchair at this time
--- NOTE | 2023-11-29 12:53 | ED.ABDPAIN ---
HPI - Abdominal Pain General Chief Complaint: Abdominal Pain Stated Complaint: abdominal pain Time Seen by Provider: 11/29/23 12:25 History of Present Illness HPI narrative: Patient is a 43-year-old female who presents ER with left lower quadrant abdominal pain. Ongoing for a couple days. Worse with movement and palpation. Reports she has known ovarian cysts and was given medication to decrease the size of the cysts. Two went away but 1 remains. Related Data Home Medications Medication Instructions Recorded Confirmed cetirizine 10 mg tablet (Zyrtec) 10 mg PO DAILY PRN allergies 06/18/22 10/12/23 fluticasone propionate 50 1 spray intranasal DAILY 06/18/22 10/12/23 mcg/actuation nasal spray,suspension (Flonase Allergy Relief) mecobalamin (vitamin B12) 10,000 1,000 mcg IM WEEKLY 11/10/22 10/12/23 mcg solution for injection riboflavin (vitamin B2) 400 mg 400 mg PO DAILY 11/10/22 10/12/23 tablet gabapentin 100 mg capsule 100 mg PO DAILY 03/16/23 10/12/23 ferrous sulfate 325 mg (65 mg 325 mg PO DAILY 10/12/23 10/12/23 iron) tablet Allergies Allergy/AdvReac Type Severity Reaction Status Date / Time No Known Allergies Allergy Verified 11/29/23 12:31 Review of Systems Review of Systems: All systems reviewed & are unremarkable except as noted in HPI and below Constitutional: Constitutional: Reports no additional constitutional complaints ENT: Reports system reviewed and no additional complaints, except as documented Cardiovascular: Cardiovascular: Reports no additional cardiovascular complaints Respiratory: Respiratory: Reports no additional respiratory complaints Gastrointestinal: Gastrointestinal: Reports abdominal pain and Denies vomiting Genitourinary: Genitourinary: Denies abnormal vaginal bleeding, Denies dysuria, Reports pelvic pain, Denies flank pain and Denies vaginal discharge [facility] Past Medical History Medical History (Updated 11/29/23 @ 16:37 by Kiet Lee MD) Abnormal Pap smear of cervix ASCUS/ NEG HPV-2009 Abnormal thyroid blood test Abnormal thyroid screen (blood) Acute non-recurrent maxillary sinusitis ADD (attention deficit disorder) Anal pain Attention deficit hyperactivity disorder (ADHD), combined type, mild Bipolar disorder Blurry vision BMI 27.0-27.9,adult BMI 28.0-28.9,adult BMI 30.0-30.9,adult Caffeine abuse, continuous Patient stopped all caffeine. Chronic anxiety Chronic toe pain, left foot Cough Chest x-ray 08/13/2022 normal. COVID-19 (~03/01/19) positive antibody test 04/30/2020 Depression DVT prophylaxis Encounter for IUD insertion 07/29/11 Mirena insertion Encounter for IUD removal 12/05/15 Mirena removal Encounter for screening for other viral diseases Fatigue Fecal incontinence Ganglion cyst of dorsum of left wrist Hemiplegic migraine Hemorrhoids Hypersomnia (~2021) Home sleep study 03/10/2022 did not reveal TANGELA. Referral to green house manager further testing. Hypothyroidism, unspecified (~12/2021) treated by shoe shanker, Dr. Galo 01/01/2022. TSH suppressed at 0.14, free T4 0.9, T3 total 101 on 09/29/2023. Irregular periods Kidney stones Left wrist pain Microcalcification of breast Migraine Migraine without aura and without status migrainosus, not intractable (~03/2021) CT angiogram of the head and neck on 10/13/2022 was unremarkable. Mild intermittent asthma in adult without complication Mixed hyperlipidemia (09/29/23) total cholesterol 232, triglycerides 145, HDL 58, LDL 147 with ratio 4.0 on 09/29/2023. Neurological symptoms Nonunion of fracture of foot Obesity (BMI 30.0-34.9) Overweight (BMI 25.0-29.9) Pain and swelling of toe of left foot (02/09/21) crush injury 02/09/2021 left 5th toe . X-ray on 04/15/2021 reveals possible healing fractures of the proximal and distal phalanx Pharyngitis Restless legs syndrome iron 106 with 32% saturation and ferritin 29 on 09/29/2023. Screening mammogram, encounter for Seasonal allergic
[2023-11-29 12:58] LABS: Basophils Percent Auto 0.5 % (0.2-1.2); Eosinophils Absolute Auto 0.1 K/mm3 (0-0.3); Eosinophils Percent Auto 0.7 % (0-4.4); Hematocrit 43.9 % (37.0-47.0); Hemoglobin 14.2 g/dL (12.0-15.0); Immature Granulocyte Absolute 0.03 K/mm3 (0.00-0.031); Immature Granulocyte Percent A 0.4 % (0-0.5); Lymphocytes Absolute Auto 2.03 K/mm3 (0.9-3.2); Lymphocytes Percent Auto 26.5 % (18.3-44.2); Mean Corpuscular HGB Conc 32.3 g/dl (32-36); Mean Corpuscular Hemoglobin 30.4 pg (26-34); Mean Platelet Volume 11.6 fl (7.4-10.4); Monocytes Absolute Auto 0.5 K/mm3 (0.1-0.6); Monocytes Percent Auto 7.1 % (2.6-8.5); Neutrophils Percent Auto 64.8 % (45.5-73.1); Platelet Count Result 191 k/mm3 (150-375); Red Blood Count 4.67 M/mm3 (4.2-5.4); Red Cell Distribution Width 12.8 % (11.5-14.5); White Blood Count 7.7 K/mm3 (4.5-10.0)
[2023-11-29 13:09] LABS: Alanine Aminotransferase 28 U/L (6-35); Albumin Level 4.4 g/dL (3.5-5.1); Alkaline Phosphatase 77 U/L (38-126); Anion Gap 11 mmol/L (4-12); Aspartate Amino Transferase 27 U/L (14-36); Bilirubin,Total 0.6 mg/dL (0.2-1.3); Blood Urea Nitrogen 10 mg/dL (7-17); Calcium 9.6 mg/dL (8.4-10.2); Carbon Dioxide 22 mmol/L (22-30); Chloride 105 mmol/L (98-107); Estimated CRCL calculation 111 ml/min; Estimated Glomerular Filt Rate > 60; Glucose 107 mg/dL (65-110); Lipase 80 U/L (23-300); Potassium 3.6 mmol/L (3.4-5.0); Sodium 138 mmol/L (137-145)
[2023-11-29 13:32] LABS: BEDSIDEPREGUCG Negative (Negative)
[2023-11-29] MEDS: MORPHINE SULFATE (*CRX) 4 MG/ML INJ IV PUSH (13:46)
[2023-11-29 13:51] LABS: Add Urine Microscopic? NO; Appearance Urine Clear (Clear); Bilirubin Urine Negative (Negative); Blood Urine Negative (Negative); Color Urine Yellow (Yellow); Glucose Urine UA Negative (Negative); Ketones Urine Negative (Negative); Leukocyte Esterase Ur Negative LEU/UL (Negative); Nitrate Urine Negative (Negative); Protein Urine Negative (Negative); Specific Grav Ur 1.005 (1.001-1.035); Urobilinogen Urine 0.2 mg/dL (<2.0)
[2023-11-29 13:54] VITALS: BP 119/66; PULSE 75; RESP 14; O2SAT 100
[2023-11-29 16:50] VITALS: BP 164/104; PULSE 69; RESP 16; TEMP 36.4; O2SAT 100
== END 2023-11-29 16:50 | disposition home or self-care (01) ==
PROVIDERS: Emergency Provider Emergency Medicine; PCP Family Medicine
DX: N83.202 Unspecified ovarian cyst, left side (principal); J45.20 Mild intermittent asthma, uncomplicated; E03.9 Hypothyroidism, unspecified; E78.2 Mixed hyperlipidemia; E53.8 Deficiency of other specified B group vitamins; E66.9 Obesity, unspecified; Z68.31 Body mass index [BMI] 31.0-31.9, adult; G25.81 Restless legs syndrome; Z86.16 Personal history of COVID-19; Z87.891 Personal history of nicotine dependence; Z90.49 Acquired absence of other specified parts of digestive tract; Z90.79 Acquired absence of other genital organ(s); Z90.721 Acquired absence of ovaries, unilateral; N20.0 Calculus of kidney
CPT/HCPCS: 36415; 74177; 76830; 76856; 80053; 81003; 81025; 83690; 85025; 96374; 99284; J2270; Q9967

== ENCOUNTER 2023-12-01 11:47 | Emergency (ER) | payer MEDICAID, SELFPAY ==
[2023-12-01 11:55] VITALS: BP 121/68; PULSE 82; RESP 16; TEMP 36.6; O2SAT 100
--- NOTE | 2023-12-01 12:54 | ED.NAVMDI ---
HPI - Nausea/Vomiting/Diarrhea General Chief complaint: Nausea/Vomiting/Diarrhea Stated complaint: kidney stone Time Seen by Provider: 12/01/23 12:32 History of Present Illness HPI Narrative: 43-year-old female presents with left lower quadrant abdominal. Patient states she was here on Wednesday and diagnosed with a ruptured left ovarian cyst. Since patient has had nausea vomiting, chills, increased urination, and just not feeling good. Patient states she has follow-up with surgeon to have left ovarian removed. Patient states that is next week. Patient states she can not keep anything down. Onset (ago): day(s) (6) Related Data Home Medications Medication Instructions Recorded Confirmed cetirizine 10 mg tablet (Zyrtec) 10 mg PO DAILY PRN allergies 06/18/22 10/12/23 fluticasone propionate 50 1 spray intranasal DAILY 06/18/22 10/12/23 mcg/actuation nasal spray,suspension (Flonase Allergy Relief) mecobalamin (vitamin B12) 10,000 1,000 mcg IM WEEKLY 11/10/22 10/12/23 mcg solution for injection riboflavin (vitamin B2) 400 mg 400 mg PO DAILY 11/10/22 10/12/23 tablet gabapentin 100 mg capsule 100 mg PO DAILY 03/16/23 10/12/23 ferrous sulfate 325 mg (65 mg 325 mg PO DAILY 10/12/23 10/12/23 iron) tablet Allergies Allergy/AdvReac Type Severity Reaction Status Date / Time No Known Allergies Allergy Verified 12/01/23 13:14 Review of Systems Review of Systems: A 10 system review of systems was completed on the patient and is negative except for what is stated in the HPI. Nursing and ancillary documentation was reviewed. [facility] Past Medical History Medical History (Updated 12/01/23 @ 13:46 by Bear Macias APRN) Abnormal Pap smear of cervix ASCUS/ NEG HPV-2008 Abnormal thyroid blood test Abnormal thyroid screen (blood) Acute non-recurrent maxillary sinusitis ADD (attention deficit disorder) Anal pain Attention deficit hyperactivity disorder (ADHD), combined type, mild Bipolar disorder Blurry vision BMI 27.0-27.9,adult BMI 28.0-28.9,adult BMI 30.0-30.9,adult Caffeine abuse, continuous Patient stopped all caffeine. Chronic anxiety Chronic toe pain, left foot Cough Chest x-ray 08/13/2022 normal. COVID-19 (~03/01/19) positive antibody test 04/30/2020 Depression DVT prophylaxis Encounter for IUD insertion 07/29/11 Mirena insertion Encounter for IUD removal 12/05/15 Mirena removal Encounter for screening for other viral diseases Fatigue Fecal incontinence Ganglion cyst of dorsum of left wrist Hemiplegic migraine Hemorrhoids Hypersomnia (~2021) Home sleep study 03/10/2022 did not reveal TANGELA. Referral to cap sizer further testing. Hypothyroidism, unspecified (~12/2021) treated by brand activation manager, Dr. Galo 01/01/2022. TSH suppressed at 0.14, free T4 0.9, T3 total 101 on 09/29/2023. Irregular periods Kidney stones Left wrist pain Microcalcification of breast Migraine Migraine without aura and without status migrainosus, not intractable (~03/2021) CT angiogram of the head and neck on 10/13/2022 was unremarkable. Mild intermittent asthma in adult without complication Mixed hyperlipidemia (09/29/23) total cholesterol 232, triglycerides 145, HDL 58, LDL 147 with ratio 4.0 on 09/29/2023. Neurological symptoms Nonunion of fracture of foot Obesity (BMI 30.0-34.9) Overweight (BMI 25.0-29.9) Pain and swelling of toe of left foot (02/09/21) crush injury 02/09/2021 left 5th toe . X-ray on 04/15/2021 reveals possible healing fractures of the proximal and distal phalanx Pharyngitis Restless legs syndrome iron 106 with 32% saturation and ferritin 29 on 09/29/2023. Screening mammogram, encounter for Seasonal allergic rhinitis Vaginal delivery 08/17/05 post hemorrhage Viral gastroenteritis Vitamin B12 deficiency Level normal at 12 152 with folic acid 6.7 and hemoglobin 13.6 on 09/29/2023. Surgical History Surgical History
[2023-12-01] MEDS: SODIUM CHLORIDE 0.9% IV 1,000 ML 999 ML IV CONT (13:14)
[2023-12-01] MEDS: MORPHINE SULFATE (*CRX) 4 MG/ML INJ IV PUSH (13:14)
[2023-12-01] MEDS: ONDANSETRON INJ 4 MG/2 ML VIAL IV PUSH (13:14)
[2023-12-01 13:15] LABS: BEDSIDEPREGUCG Negative (Negative)
[2023-12-01 13:26] LABS: Basophils Percent Auto 0.2 % (0.2-1.2); Eosinophils Percent Auto 0.2 % (0-4.4); Hematocrit 42.9 % (37.0-47.0); Hemoglobin 14.1 g/dL (12.0-15.0); Immature Granulocyte Absolute 0.03 K/mm3 (0.00-0.031); Immature Granulocyte Percent A 0.3 % (0-0.5); Lymphocytes Absolute Auto 1.97 K/mm3 (0.9-3.2); Mean Corpuscular HGB Conc 32.9 g/dl (32-36); Mean Corpuscular Hemoglobin 31.2 pg (26-34); Mean Corpuscular Volume 94.9 fl (80-100); Mean Platelet Volume 11.6 fl (7.4-10.4); Monocytes Absolute Auto 0.6 K/mm3 (0.1-0.6); Monocytes Percent Auto 6.6 % (2.6-8.5); Neutrophils Percent Auto 69.7 % (45.5-73.1); Platelet Count Result 183 k/mm3 (150-375); Red Blood Count 4.52 M/mm3 (4.2-5.4); Red Cell Distribution Width 12.8 % (11.5-14.5); White Blood Count 8.6 K/mm3 (4.5-10.0)
[2023-12-01 13:29] LABS: Add Urine Microscopic? NO; Appearance Urine Clear (Clear); Bilirubin Urine Negative (Negative); Blood Urine Negative (Negative); Color Urine Yellow (Yellow); Glucose Urine UA Negative (Negative); Ketones Urine Negative (Negative); Leukocyte Esterase Ur Negative LEU/UL (Negative); Nitrate Urine Negative (Negative); Protein Urine Negative (Negative); Urobilinogen Urine 0.2 mg/dL (<2.0); pH Urine 6.5 (5.0-9.0)
[2023-12-01 13:35] LABS: Alanine Aminotransferase 26 U/L (6-35); Albumin Level 4.3 g/dL (3.5-5.1); Alkaline Phosphatase 66 U/L (38-126); Anion Gap 7 mmol/L (4-12); Aspartate Amino Transferase 29 U/L (14-36); Bilirubin,Total 0.5 mg/dL (0.2-1.3); Blood Urea Nitrogen 12 mg/dL (7-17); Calcium 9.6 mg/dL (8.4-10.2); Carbon Dioxide 25 mmol/L (22-30); Chloride 106 mmol/L (98-107); Estimated CRCL calculation 112 ml/min; Estimated Glomerular Filt Rate > 60; Glucose 95 mg/dL (65-110); Lipase 83 U/L (23-300); Potassium 3.8 mmol/L (3.4-5.0); Sodium 138 mmol/L (137-145)
[2023-12-01 14:17] VITALS: BP 123/63; PULSE 89; RESP 20; O2SAT 99
== END 2023-12-01 14:18 | disposition home or self-care (01) ==
PROVIDERS: Emergency Provider Nurse Practitioner Family; PCP Family Medicine
DX: R10.32 Left lower quadrant pain (principal); R11.2 Nausea with vomiting, unspecified; J45.20 Mild intermittent asthma, uncomplicated; E03.9 Hypothyroidism, unspecified; E78.2 Mixed hyperlipidemia; E66.9 Obesity, unspecified; Z68.32 Body mass index [BMI] 32.0-32.9, adult; E53.8 Deficiency of other specified B group vitamins; F90.2 Attention-deficit hyperactivity disorder, combined type; F31.9 Bipolar disorder, unspecified; Z86.16 Personal history of COVID-19; Z87.442 Personal history of urinary calculi; Z87.891 Personal history of nicotine dependence; Z90.49 Acquired absence of other specified parts of digestive tract; Z90.721 Acquired absence of ovaries, unilateral; Z90.79 Acquired absence of other genital organ(s); Z79.899 Other long term (current) drug therapy
CPT/HCPCS: 36415; 80053; 81003; 81025; 83690; 85025; 96361; 96374; 96375; 99284; J2270; J2405; J7030

== ENCOUNTER 2023-12-29 15:16 | Outpatient (CLI) | payer OTHER, SELFPAY ==
--- NOTE | 2023-12-29 15:33 | ECG_ITS ---
Test Date: 2023-12-29 15:42:43 Measurements Intervals [place] Rate: 79 P: 59 NM: 159 QRS: 41 QRSD: 85 T: 48 QT: 340 QTc: 392 Interpretive Statements SINUS RHYTHM BASELINE ARTIFACT- I, II, III, AVR, AVL, AVF NORMAL ECG No previous ECG available for comparison Electronically Signed On 12-29-2023 15:44:19 TERRITORY ACCOUNT REPRESENTATIVE by Karel Paul D.O.
== END 2023-12-29 15:17 | disposition home or self-care (01) ==
LOC: ANHSURGERY 15:21
PROVIDERS: PCP Family Medicine; Visit Provider Obstetrics & Gynecology
DX: Z01.818 Encounter for other preprocedural examination (principal); I10 Essential (primary) hypertension; N83.209 Unspecified ovarian cyst, unspecified side
CPT/HCPCS: 36415; 86850; 86900; 86901; 93005

== ENCOUNTER 2023-12-30 00:49 | Day surgery (SDC) | payer OTHER, SELFPAY ==
[2023-12-28 09:54] VITALS: BMI 23.6
--- NOTE | 2023-12-28 09:55 | PC.NURSE ---
Report to the Outpatient Waiting Room, entrance under the green pavilion located off [facility], at time _0600_ on date _[id number]_. Planned Procedure Time: _0730_.? Time changes happen often and if your time is changed the preop area will call you the afternoon before. - You and your visitor will be asked to self-screen and do not enter if you have any COVID symptoms. Please call surgeon if you need to reschedule. - A mask is optional within the hospital at this time. Patients may have clear liquids (water, carbonated beverages, clear teas, apple juice) until 3 hours prior to surgery with a maximum of 20 ounces. - No food from midnight until time of surgery and no smoking Take only the following medications with a SIP of water on the morning of surgery: ___Levothyroxine, Metoprolol, Gabapentin, Buspirone and if needed may use Flonase.____ DO NOT STOP ANY OF YOUR OTHER PRESCRIPTION MEDICATIONS PRIOR TO SURGERY EXCEPT THE FOLLOWING Medications to discontinue per physician ___Vitamins__ Date to take last dose___Stop now. Please no make-up, nail korean, hairspray, perfume, deodorant, or body powder the day of surgery.? No jewelry (including any body piercings) or valuables the day of surgery, leave them at home.? Please take a shower or bath the night before, or the morning of, surgery with an antibacterial soap.? Wear comfortable, loose fitting clothing.? - Jewelry must be removed prior to entering the operating room.? Rings and piercings that are not removed may be cut off. - The hospital will not accept responsibility for valuables.? - Please leave all valuables, including medications, at home the day of surgery. If you are going home after surgery, a licensed [employer] flatbed driver must drive you home.? - NO public transportation without another adult if you receive anesthesia. - We recommend that an adult stay with you for 24 hours following discharge. - We also recommend that you do not drive, make important decision, drink alcoholic beverages, or take any drugs that were not prescribed by your health care provider for at least 24 hours after your discharge time. Follow any additional instructions given to you from your surgeon. Telephone instructions given to __Echo__and asked if any additional questions and then verbalized understanding. Patient advised to call surgeon office or pre surgery nurse liaison [phone] if any additional questions.
--- NOTE | 2023-12-28 16:40 | PM.IMHP ---
H&P: HPI History of Present Illness Date/Time: 12/28/23 16:40 43-year-old female presents for surgical management of left lower quadrant pain. She has had significant pain in the left lower quadrant and history of ovarian cysts for which she has had multiple emergency room visits, also has a history of left renal stone as well. She has had a prior right salpingo oophorectomy. Has had a history of abnormal bleeding as well but this has not been as much of an issue as of late. Chief Complaint: Left lower quadrant pain Review of Systems Review of Systems: All systems reviewed & are unremarkable except as noted in HPI and below [facility] Past Medical History Medical History (Updated 12/28/23 @ 16:43 by Jairon Espino MD) Abnormal Pap smear of cervix ASCUS/ NEG HPV-2008 Abnormal thyroid blood test Abnormal thyroid screen (blood) Acute non-recurrent maxillary sinusitis ADD (attention deficit disorder) Anal pain Attention deficit hyperactivity disorder (ADHD), combined type, mild Bipolar disorder Blurry vision BMI 27.0-27.9,adult BMI 28.0-28.9,adult BMI 30.0-30.9,adult Caffeine abuse, continuous Patient stopped all caffeine. Chronic anxiety Chronic toe pain, left foot Cough Chest x-ray 08/13/2022 normal. COVID-19 (~03/01/19) positive antibody test 04/30/2020 Depression DVT prophylaxis Encounter for IUD insertion 07/29/11 Mirena insertion Encounter for IUD removal 12/05/15 Mirena removal Encounter for screening for other viral diseases Fatigue Fecal incontinence Ganglion cyst of dorsum of left wrist Hemiplegic migraine Hemorrhoids Hypersomnia (~2021) Home sleep study 03/10/2022 did not reveal TANGELA. Referral to sanding machine operator or tender further testing. Hypothyroidism, unspecified (~12/2021) treated by plant sprayer, Dr. Galo 01/01/2022. TSH suppressed at 0.14, free T4 0.9, T3 total 101 on 09/29/2023. Irregular periods Kidney stones Left lower quadrant abdominal pain Left wrist pain Microcalcification of breast Migraine Migraine without aura and without status migrainosus, not intractable (~03/2021) CT angiogram of the head and neck on 10/13/2022 was unremarkable. Mild intermittent asthma in adult without complication Mixed hyperlipidemia (09/29/23) total cholesterol 232, triglycerides 145, HDL 58, LDL 147 with ratio 4.0 on 09/29/2023. Neurological symptoms Nonunion of fracture of foot Obesity (BMI 30.0-34.9) Overweight (BMI 25.0-29.9) Pain and swelling of toe of left foot (02/09/21) crush injury 02/09/2021 left 5th toe . X-ray on 04/15/2021 reveals possible healing fractures of the proximal and distal phalanx Pharyngitis Restless legs syndrome iron 106 with 32% saturation and ferritin 29 on 09/29/2023. Screening mammogram, encounter for Seasonal allergic rhinitis Vaginal delivery 08/17/05 post hemorrhage Viral gastroenteritis Vitamin B12 deficiency Level normal at 12 152 with folic acid 6.7 and hemoglobin 13.6 on 09/29/2023. 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 Occupation/Education: occupation Additional occupation/education comments: Works at [employer] 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 Gender identity (if verbalized by the patient): Female Sexual Orientation (if Verbalized by the Patient): Straight or Heterosexual Spiritual care concerns: No Agree to blood products: Yes Meds Home Medications and Allergies Home Medications Medication Instructions Recorded Confirmed Type cetirizine 10 mg tablet (Zyrtec) 10 mg PO DAILY PRN allergies 06/18/22 12/28/23 History fluticasone propionate 50 1 spray intranasal DAILY 06/18/22 12/28/23 History mcg/actuation nasal spray,suspension (Flonase Allergy Relief) mecobalamin (vitamin B12) 10,000 1,000 mcg IM WEEKLY 11/10/22 12/28/23 History mcg solution for injection riboflavin (vitamin B2) 400 mg 400 mg PO DAILY 11/10/22 12/28/23 History tablet zolmitriptan 5 mg tablet (Zomig) See Rx Instructions PO .COMPLEX 11/10/22 12/28/23 Rx #14 tabs gabapentin 100 mg capsule 100 mg PO DAILY 03/16/23 12/28/23 History insulin syringe-needle U-100 1 mL #100 ea 09/08/23 12/28/23 Rx 31 gauge x 5/16 (BD Insulin Syringe Ultra-Fine) metoprolol succinate 25 mg 25 mg PO DAILY #90 tabs 09/16/23 12/28/23 Rx tablet,extended release 24 hr levothyroxine 75 mcg tablet 75 mcg PO . Q.a.m. #90 tabs 09/23/23 12/28/23 Rx (Unithroid) ferrous sulfate 325 mg (65 mg 325 mg PO DAILY 10/12/23 12/28/23 History iron) tablet naproxen 375 mg tablet 375 mg PO BID #30 tabs 12/10/23 12/28/23 Rx escitalopram oxalate 20 mg tablet 20 mg PO DAILY #90 tabs 12/17/23 12/28/23 Rx (Lexapro) buspirone 10 mg tablet 10 mg PO BID #180 tabs 12/20/23 12/28/23 Rx dextroamphetamine-amphetamine 5 mg 5 mg PO BID #60 tabs 12/20/23 12/28/23 Rx tablet (Adderall) Allergies Allergy/AdvReac Type Severity Reaction Status Date / Time No Known Allergies Allergy Verified 12/28/23 09:47 Exam Resp: Effort & Inspection: normal respiratory effort Auscultation: clear to auscultation bilaterally Cardio: Rate: regular rate Rhythm: regular rhythm GI: Inspection: normal to inspection Auscultation: normal bowel sounds : External Female Exam: normal external appearance Speculum Exam - Vagina: normal appearance of the vagina Speculum Exam - Cervix: normal appearance of the cervix Bimanual exam- vagina & uterus: normal bimanual exam Bimanual Exam- Adnexa, other: other ( right adnexa absent/left adnexa tender to palpation) Assessment and Plan Assessment and plan (1) Left lower quadrant abdominal pain: Code(s): R10.32 - Left lower quadrant pain Status: Inactive Assessment and Plan: multiple options have been discussed with the patient and she is adamantly requesting left salpingo oophorectomy. I have discussed with her that with her prior history of right oophorectomy this will render her menopausal, which may or may not be able to be controlled with medications as far as menopausal symptoms. I have also discussed with her that this left lower quadrant pain could be affected/ worsened by her left renal stone and she may continue to have discomfort even after her ovary is removed. Patient states good understanding of all the above, understands that she very well may be menopausal and be symptomatic in spite of medications. Also that pain may continue even though she is having her ovary removed. Plan 1. robotic assisted laparoscopic left salpingo oophorectomy
[2023-12-30] VITALS (11 sets, daily range): BP systolic 98–126; BP diastolic 53–73; PULSE 52–84; RESP 10–20; TEMP 36.5–36.6; O2SAT 96–100
[2023-12-30] MEDS: ACETAMINOPHEN 500 MG TABLET 1000 MG PO (06:29)
[2023-12-30] MEDS: LACTATED RINGERS 1,000 ML 30 ML IV CONT ×2 (06:30→08:55)
[2023-12-30] MEDS: KETOROLAC 15 MG/ML VIAL (*BKC) IV PUSH (06:34)
[2023-12-30] MEDS: SCOPOLAMINE 1 MG PATCH 1 PATCH TRANSDERM (06:42)
--- NOTE | 2023-12-30 07:14 | WPDHPUPDATE1 ---
History and Physical Update Update Date/Time: 12/30/23 07:14 History and Physical has been reviewed, including an updated exam of the patient. There are NO changes in the patient's condition. Risks, benefits, and alternatives have been discussed and questions answered. Patient agrees to proceed with procedure.
--- NOTE | 2023-12-30 07:15 | P.PNAN_ITS ---
Anes - Initial Pre Proc Eval Procedure: Operation Date: 12/30/23 07:30 Proposed Procedures p Robotic Assisted Laparoscopic Left Oophorectomy - Jairon Espino MD Date/Time: 12/30/23 07:15 Surgeon: Jairon Espino MD Pre Op Diagnosis: left ovarian cyst Patient Data Age: 43 Gender: F Height: 1.55 m Weight: 56.8 kg Allergies Allergy/AdvReac Type Severity Reaction Status Date / Time No Known Allergies Allergy Verified 12/30/23 06:05 Home Medications Medication Instructions Recorded Confirmed Type cetirizine 10 mg tablet (Zyrtec) 10 mg PO DAILY PRN allergies 06/18/22 12/28/23 History fluticasone propionate 50 1 spray intranasal DAILY 06/18/22 12/28/23 History mcg/actuation nasal spray,suspension (Flonase Allergy Relief) mecobalamin (vitamin B12) 10,000 1,000 mcg IM WEEKLY 11/10/22 12/30/23 History mcg solution for injection riboflavin (vitamin B2) 400 mg 400 mg PO DAILY 11/10/22 12/30/23 History tablet zolmitriptan 5 mg tablet (Zomig) See Rx Instructions PO .COMPLEX 11/10/22 12/28/23 Rx #14 tabs gabapentin 100 mg capsule 100 mg PO DAILY 03/16/23 12/30/23 History insulin syringe-needle U-100 1 mL #100 ea 09/08/23 12/28/23 Rx 31 gauge x 5/16 (BD Insulin Syringe Ultra-Fine) metoprolol succinate 25 mg 25 mg PO DAILY #90 tabs 09/16/23 12/30/23 Rx tablet,extended release 24 hr levothyroxine 75 mcg tablet 75 mcg PO . Q.a.m. #90 tabs 09/23/23 12/30/23 Rx (Unithroid) ferrous sulfate 325 mg (65 mg 325 mg PO DAILY 10/12/23 12/30/23 History iron) tablet naproxen 375 mg tablet 375 mg PO BID #30 tabs 12/10/23 12/30/23 Rx escitalopram oxalate 20 mg tablet 20 mg PO DAILY #90 tabs 12/17/23 12/30/23 Rx (Lexapro) buspirone 10 mg tablet 10 mg PO BID #180 tabs 12/20/23 12/30/23 Rx dextroamphetamine-amphetamine 5 mg 5 mg PO BID #60 tabs 12/20/23 12/30/23 Rx tablet (Adderall) Patient hx anesthesia problems: none Family hx anesthesia problems: none Results Review: All pre-operative results and documents have been reviewed as part of the pre- operative evaluation. [facility] Past Medical History Medical History Abnormal Pap smear of cervix ASCUS/ NEG HPV-2008 Abnormal thyroid blood test Abnormal thyroid screen (blood) Acute non-recurrent maxillary sinusitis ADD (attention deficit disorder) Anal pain Attention deficit hyperactivity disorder (ADHD), combined type, mild Bipolar disorder Blurry vision BMI 27.0-27.9,adult BMI 28.0-28.9,adult BMI 30.0-30.9,adult Caffeine abuse, continuous Patient stopped all caffeine. Chronic anxiety Chronic toe pain, left foot Cough Chest x-ray 08/13/2022 normal. COVID-19 (~03/01/19) positive antibody test 04/30/2020 Depression DVT prophylaxis Encounter for IUD insertion 07/29/11 Mirena insertion Encounter for IUD removal 12/05/15 Mirena removal Encounter for screening for other viral diseases Fatigue Fecal incontinence Ganglion cyst of dorsum of left wrist Hemiplegic migraine Hemorrhoids Hypersomnia (~2021) Home sleep study 03/10/2022 did not reveal TANGELA. Referral to skill training program coordinator further testing. Hypothyroidism, unspecified (~12/2021) treated by machine inspector, Dr. Galo 01/01/2022. TSH suppressed at 0.14, free T4 0.9, T3 total 101 on 09/29/2023. Irregular periods Kidney stones Left lower quadrant abdominal pain Left wrist pain Microcalcification of breast Migraine Migraine without aura and without status migrainosus, not intractable (~03/2021) CT angiogram of the head and neck on 10/13/2022 was unremarkable. Mild intermittent asthma in adult without complication Mixed hyperlipidemia (09/29/23) total cholesterol 232, triglycerides 145, HDL 58, LDL 147 with ratio 4.0 on 09/29/2023. Neurological symptoms Nonunion of fracture of foot Obesity (BMI 30.0-34.9) Overweight (BMI 25.0-29.9) Pain and swelling of toe of left foot (02/09/21) crush injury 02/09/2021 left 5th toe . X-ray on 04/15/2021 reveals possible healing fractures of the proximal and distal phalanx Pharyngitis Restless legs syndrome iron 106 with 32% saturation and ferritin 29 on 09/29/2023. Screening mammogram, encounter for Seasonal allergic rhinitis Vaginal delivery 08/17/05 post hemorrhage Viral gastroenteritis Vitamin B12 deficiency Level normal at 12 152 with folic acid 6.7 and hemoglobin 13.6 on 09/29/2023. 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 Occupation/Education: occupation Additional occupation/education comments: Works at [employer]. 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 Gender identity (if verbalized by the patient): Female Sexual Orientation (if Verbalized by the Patient): Straight or Heterosexual Spiritual care concerns: No Agree to blood products: Yes Anes - Eval Final PreProcedure Day of Procedure 12/30/23 07:15 Patient weight: normal Heart: regular rate and rhythm Lungs: clear to auscultation and normal air movement Airway: Mallampati scale class II Neurological: alert and oriented Last oral intake: >/= 8 hours ASA classification: III Emergent: no Anesthetic plan: proceed Anesthesia type and monitoring: general ETT and standard monitoring Results Review: All pre-operative results and documents have been reviewed as part of the pre- operative evaluation. Informed Consent: The patient's anesthetic plan and its attendant risks and benefits were discussed with the patient/family/POA. Questions were solicited and answers provided to the satisfaction of the patient/family/POA.
[2023-12-30 07:34] LABS: BEDSIDEPREGUCG Negative (Negative)
--- NOTE | 2023-12-30 08:33 | W.PM.PROC2 ---
Procedure Note - Detailed Date of Procedure 12/30/23 Pre-op Diagnosis left ovarian cyst Post-op Diagnosis Same Procedure Performed Robotic assisted left salpingo oophorectomy Surgeon Jairon Espino MD Anesthesia General Findings Uterus without abnormality, right tube and ovary surgically absent, left ovary with multiple cysts. Description of Procedure Patient prepped and draped in usual manner for this procedure. Trocar sites were marked and trocars were placed under direct visualization. Trocars were attached to the de Sonia system instruments were then placed under direct visualization. Findings were noted as above and the utero-ovarian ligament was cauterized and cut to release the ovary, no bleeding was noted. Mesial salpinx previously had been cauterized and cut to remove tube separately. Irrigation was undertaken there was no bleeding. Gas was allowed to escape, instruments removed, and incisions were approximated using 4-0 Monocryl and glue. Patient sent to recovery in stable condition. Estimated Blood Loss 10 Drains No Packing No Pathology Yes Complications No immediate complications Condition Stable Disposition PACU [facility] Billing Surgery - Charge Forward: Surgery Billing
[2023-12-30] MEDS: fentaNYL CITRATE INJ (*CRX) 100 MCG/2 ML VIAL 25 MCG IV PUSH ×8 (08:45→09:24)
[2023-12-30] MEDS: oxyCODONE HCL (*CRX) 5 MG TAB IR PO (10:15)
== END 2023-12-30 11:08 | disposition home or self-care (01) ==
PROVIDERS: PCP Family Medicine; Visit Provider Obstetrics & Gynecology
PROC: 8E0W4CZ Robotic Assisted Procedure of Trunk Region, Percutaneous Endoscopic Approach (ICD-10-PCS; CPT 49320; principal; 2023-12-30 07:30)
DX: N83.292 Other ovarian cyst, left side (principal); N83.02 Follicular cyst of left ovary; L72.0 Epidermal cyst; N83.8 Other noninflammatory disorders of ovary, fallopian tube and broad ligament; G89.18 Other acute postprocedural pain; E03.9 Hypothyroidism, unspecified; E78.2 Mixed hyperlipidemia; J45.909 Unspecified asthma, uncomplicated; G25.81 Restless legs syndrome; R15.9 Full incontinence of feces; F90.2 Attention-deficit hyperactivity disorder, combined type; G47.10 Hypersomnia, unspecified; F31.9 Bipolar disorder, unspecified; F41.9 Anxiety disorder, unspecified; E53.8 Deficiency of other specified B group vitamins; Z79.4 Long term (current) use of insulin; Z79.1 Long term (current) use of non-steroidal anti-inflammatories (NSAID); Z98.890 Other specified postprocedural states; Z90.49 Acquired absence of other specified parts of digestive tract; Z98.51 Tubal ligation status; Z87.891 Personal history of nicotine dependence; Z87.442 Personal history of urinary calculi; Z80.3 Family history of malignant neoplasm of breast
CPT/HCPCS: 58661; S2900; 88305; A9270; J1100; J1171; J1200; J1885; J2003; J2250; J2405; J2704; J3010; J7120

== ENCOUNTER 2024-02-04 12:02 | Emergency (ER) | payer OTHER, SELFPAY ==
--- NOTE | ~2024-02-04 | XR_ITS ---
EXAMINATION: XR chest 2V DATE: 02/04/2024 12:58 INDICATION: Cough and upper back pain TECHNIQUE: PA and lateral views of the chest were obtained. COMPARISON: Chest radiograph dated 08/13/2022 FINDINGS: The lungs are clear with no focal airspace opacities, pulmonary edema, pleural effusion or pneumothor ax. The cardiomediastinal silhouette is normal. Mild thoracic kyphosis with mild anterior wedging of a couple mid thoracic vertebral bodies. Cholecystectomy clips in right upper quadrant. IMPRESSION: 1. No acute cardiopulmonary disease. Reviewed, dictated and finalized at location A. GER WOUND
[2024-02-04 12:22] VITALS: BP 112/64; PULSE 77; RESP 18; TEMP 37.1; O2SAT 100
[2024-02-04 12:40] LABS: EDCOVIDSCREEN Negative (Negative)
--- NOTE | 2024-02-04 12:49 | ED.URI ---
HPI - URI/Sore Throat General Chief Complaint: Upper Respiratory Infection Stated Complaint: Sick For Two Weeks Time Seen by Provider: 02/04/24 12:33 Source: patient and RN notes reviewed Mode of arrival: ambulatory Limitations: no limitations History of Present Illness HPI Narrative: Patient presents today complaining of a 2 week history of fatigue, cough, headache fall left ear pain, nausea, bilateral upper back pain. Denies known fever or shortness of breath. She has tried Tylenol and ibuprofen without much relief. Two days ago she was started on amoxicillin for presumed left otitis media as well as Paxlovid for presumed COVID by her PCP. She was not evaluated prior to starting these medications. Patient states she left work early today and was told by her employer that she needed a COVID-19 test and documentation before she could return to work. Related Data Home Medications ?Medication ?Instructions ?Recorded ?Confirmed ?Last Taken ?Type cetirizine 10 mg tablet (Zyrtec) 10 mg PO DAILY PRN allergies 06/18/22 02/04/24 08/01/23 History fluticasone propionate 50 1 spray intranasal DAILY 06/18/22 02/04/24 08/01/23 History mcg/actuation nasal spray,suspension (Flonase Allergy Relief) mecobalamin (vitamin B12) 10,000 1,000 mcg IM WEEKLY 11/10/22 02/04/24 12/25/23 History mcg solution for injection riboflavin (vitamin B2) 400 mg 400 mg PO DAILY 11/10/22 02/04/24 12/29/23 History tablet gabapentin 100 mg capsule 100 mg PO DAILY 03/16/23 02/04/24 12/29/23 History ferrous sulfate 325 mg (65 mg 325 mg PO DAILY 10/12/23 02/04/24 12/28/23 History iron) tablet Allergies Allergy/AdvReac Type Severity Reaction Status Date / Time No Known Allergies Allergy Verified 02/04/24 12:18 Review of Systems Review of Systems: CONSTITUTIONAL: Denies fever, chills, or sweats.+ body aches, fatigue EYES: Denies visual changes, redness, or discharge. ENT: Denies rhinorrhea, congestion, sore throat.+ left ear pain CARDIOVASCULAR: Denies chest pain, palpitations, or edema. RESPIRATORY: Denies dyspnea.+ cough GASTROINTESTINAL: Denies abdominal pain, vomiting, or diarrhea.+ nausea GENITOURINARY: Denies dysuria or hematuria. SKIN: Denies rash, itching, or wounds. MUSCULOSKELETAL: Denies back pain, joint pain, or myalgia. NEUROLOGIC: Denies numbness, tingling, or weakness.+ headache PSYCH: Denies depression or anxiety. [facility] Past Medical History Medical History COVID-19 (~03/01/19) positive antibody test 04/30/2020. Positive COVID 01/31/2024. Otitis media Left lower quadrant abdominal pain Restless legs syndrome iron 106 with 32% saturation and ferritin 29 on 09/29/2023. Mixed hyperlipidemia (09/29/23) total cholesterol 232, triglycerides 145, HDL 58, LDL 147 with ratio 4.0 on 09/29/2023. Vitamin B12 deficiency Level normal at 12 152 with folic acid 6.7 and hemoglobin 13.6 on 09/29/2023. BMI 30.0-30.9,adult Obesity (BMI 30.0-34.9) Anal pain Hemorrhoids Fecal incontinence Hemiplegic migraine Migraine Left wrist pain Fatigue Cough Chest x-ray 08/13/2022 normal. Ganglion cyst of dorsum of left wrist Acute non-recurrent maxillary sinusitis Microcalcification of breast Hypersomnia (~2021) Home sleep study 03/10/2022 did not reveal TANGELA. Referral to shower doors and panels fabricator further testing. Hypothyroidism, unspecified (~12/2021) treated by photoresist printer, Dr. Galo 01/01/2022. TSH suppressed at 0.14, free T4 0.9, T3 total 101 on 09/29/2023. Abnormal thyroid screen (blood) Abnormal thyroid blood test Irregular periods Screening mammogram, encounter for Vaginal delivery 08/17/05 post hemorrhage Encounter for IUD removal 12/05/15 Mirena removal Encounter for IUD insertion 07/29/11 Mirena insertion Abnormal Pap smear of cervix ASCUS/ NEG HPV-2008 Nonunion of fracture of foot Chronic toe pain, left foot Overweight (BMI 25.0-29.9) Viral gastroenteritis Migraine without aura and without status migrainosus, not intractable (~03/2021) CT angiogram of the head and neck on 10/13/2022 was unremarkable. Pain and swelling of toe of left foot (02/09/21) crush injury 02/09/2021 left 5th toe . X-ray on 04/15/2021 reveals possible healing fractures of the proximal and distal phalanx BMI 28.0-28.9,adult Pharyngitis Attention deficit hyperactivity disorder (ADHD), combined type, mild Caffeine abuse, continuous Patient stopped all caffeine. BMI 27.0-27.9,adult Mild intermittent asthma in adult without complication Seasonal allergic rhinitis Chronic anxiety Encounter for screening for other viral diseases Bipolar disorder DVT prophylaxis Blurry vision Neurological symptoms ADD (attention deficit disorder) Depression Kidney stones Surgical History Surgical History History of left salpingo-oophorectomy (12/30/23) Robotic assisted left salpingo oophorectomy History of orthopedic surgery left toe surgery flatbed ran over foot History of tubal ligation (12/05/14) History of cholecystectomy (~2009) Status post cystoscopy History of right salpingo-oophorectomy Status post tonsillectomy History of dilatation and curettage Family History Family History Father Hypertension Mother Breast cancer Social History Social History Smoking status: Never smoker Tobacco type: cigarettes 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 Occupation/Education: occupation Additional occupation/education comments: Works at [employer]. 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 Gender identity (if verbalized by the patient): Female Sexual Orientation (if Verbalized by the Patient): Straight or Heterosexual Spiritual care concerns: No Agree to blood products: Yes Comments At time of signature, I have reviewed and agree with nursing past medical, surgical, social and family history unless otherwise noted. Please see nursing chart for further information. There is no relevant family history pertinent to the presenting complaint Exam Narrative: GENERAL: Well-appearing, well-nourished, and in no acute distress. HEAD: Normocephalic, atraumatic. EYES: EOMI. No redness or drainage. Conjunctivae normal. ENT: Mucous membranes pink and moist. Nares clear. No rhinorrhea. TMs normal bilaterally. Throat normal. Uvula midline. NECK: Normal AROM. Supple. No lymphadenopathy. CHEST: No respiratory distress. Clear to auscultation. HEART: Regular rate and rhythm. No murmur appreciated. MUSCULOSKELETAL: No bony tenderness. Bilateral upper back tenderness EXTREMITIES: Normal range of motion. No edema. SKIN: Warm, dry, no rash. Capillary refill normal. Normal skin turgor. NEURO: No focal deficits. Alert and oriented x3. Gait steady. PSYCH: Normal affect. No signs of depression or anxiety. Course Course Level of Care: Express Care Visit Vital Signs Vital signs: Vital Signs Temperature 98.8 F 02/04/24 12:22 Pulse Rate 77 02/04/24 12:22 Respiratory Rate 18 02/04/24 12:22 Blood Pressure 112/64 02/04/24 12:22 Pulse Oximetry 100 02/04/24 12:22 Oxygen Delivery Room Air 02/04/24 12:22 Temperature 98.8 F 02/04/24 12:22 Pulse Rate 77 02/04/24 12:22 Respiratory Rate 18 02/04/24 12:22 Blood Pressure 112/64 02/04/24 12:22 Pulse Oximetry 100 02/04/24 12:22 Oxygen Delivery Room Air 02/04/24 12:22 Reviewed MDM - URI/Sore Throat MDM Narrative Medical decision making narrative: Chest x-ray negative. COVID-19 negative. Told patient she did not need to start the Paxlovid, but that she could continue the amoxicillin as it may help with her symptoms. Patient agrees with plan. Anticipatory guidance given. Differential Diagnosis Differential diagnosis: Likely upper respiratory infection, otitis media, sinusitis, viral infection, bronchitis and other (Pneumonia) Lab Data Attestation: I reviewed the patient's lab results. Labs: Lab Results 02/04/24 Range/Units 12:37 POC SARS CoV-2 Ag Negative (Negative) Imaging Data Radiologist's impression: ITS Impressions Chest X-Ray 02/04/24 13:34 IMPRESSION: 1. No acute cardiopulmonary disease. Critical Care Time Critical Care Time Critical Care Time: No Discharge Plan Discharge Clinical Impression: Bronchitis Patient Disposition: Home, Self-Care Condition: Stable Instructions: Acute Bronchitis (ED) Additional Instructions: Your chest x-ray is negative for pneumonia. You may continue the amoxicillin as previously prescribed. Take the prednisone and Tessalon Perles as directed. Follow-up with your PCP in 1 week if symptoms persist. Go to the ER if symptoms worsen to include new onset fever greater than 100.3, shortness of breath. Patient Language: Moldovan Prescriptions: New benzonatate 200 mg capsule 200 mg PO TID PRN (Reason: cough) Qty: 20 0RF prednisone 20 mg tablet 40 mg PO DAILY 5 Days Qty: 10 0RF No Action mecobalamin (vitamin B12) 10,000 mcg recon soln 1,000 mcg IM WEEKLY zolmitriptan [Zomig] 5 mg tablet See Rx Instructions PO .COMPLEX Qty: 14 5RF Rx Instructions: take 1 tab at onset of headache; if no relief, may repeat 1 tab after at least 2 hrs; max = 2 tabs/24 hrs PO riboflavin (vitamin B2) 400 mg tablet 400 mg PO DAILY cetirizine [Zyrtec] 10 mg tablet 10 mg PO DAILY PRN (Reason: allergies) fluticasone propionate [Flonase Allergy Relief] 50 mcg/actuation spray,suspension 1 spray intranasal DAILY Rx Instructions: administer into each nostril gabapentin 100 mg capsule 100 mg PO DAILY Rx Instructions: per neuro ferrous sulfate 325 mg (65 mg iron) tablet 325 mg PO DAILY CombiPatch 0.05-0.14 mg/24 hr patch semiweekly 1 patch transdermal 2XW Qty: 8 12RF Rx Instructions: apply 1 patch every 3 days alternating with 1 patch every 4 days metoprolol succinate 25 mg tablet extended release 24 hr 25 mg PO DAILY Qty: 90 3RF levothyroxine [Unithroid] 75 mcg tablet 75 mcg PO . Q.a.m. Qty: 90 3RF escitalopram oxalate [Lexapro] 20 mg tablet 20 mg PO DAILY Qty: 90 3RF buspirone 10 mg tablet 10 mg PO BID Qty: 180 3RF dextroamphetamine-amphetamine [Adderall] 5 mg tablet 5 mg PO BID Qty: 60 0RF Rx Instructions: administer doses at least 4-6 hours apart Paxlovid 300 mg (150 mg x 2)-100 mg tablets,dose pack See Rx Instructions PO .COMPLEX Qty: 30 0RF Rx Instructions: take TWO 150 mg tablets of nirmatrelvir with ONE 100 mg tablet of ritonavir twice daily for 5 days PO Do not take hydrocodone or Flonase with Paxlovid. amoxicillin-pot clavulanate 875-125 mg tablet 1 tablet PO BID Qty: 14 0RF Follow-up/Referrals: Blayne Davidson MD [Primary Care Provider] - Stand Alone Forms: Work/School Release IP Time of Disposition: 13:49
== END 2024-02-04 13:51 | disposition home or self-care (01) ==
PROVIDERS: Emergency Provider Nurse Practitioner; PCP Family Medicine
DX: J40 Bronchitis, not specified as acute or chronic (principal); Z20.822 Contact with and (suspected) exposure to COVID-19; Z87.891 Personal history of nicotine dependence; E78.2 Mixed hyperlipidemia; G25.81 Restless legs syndrome; E03.9 Hypothyroidism, unspecified; E53.8 Deficiency of other specified B group vitamins; Z86.16 Personal history of COVID-19
CPT/HCPCS: 71046; 87426; 99213; G0463

== ENCOUNTER 2024-02-11 10:41 | Emergency (ER) | payer OTHER, SELFPAY ==
[2024-02-11 11:01] VITALS: BP 107/78; PULSE 85; RESP 16; TEMP 36.4; O2SAT 99
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
== END 2024-02-11 12:20 | disposition home or self-care (01) ==
PROVIDERS: Emergency Provider Registered Nurse; PCP Family Medicine
DX: M54.6 Pain in thoracic spine (principal); E78.2 Mixed hyperlipidemia; E03.9 Hypothyroidism, unspecified
CPT/HCPCS: 99213; G0463

== ENCOUNTER 2024-04-10 09:37 | Emergency (ER) | payer BC, OTHER, SELFPAY ==
--- NOTE | 2024-04-10 09:40 | ED_ITS ---
HPI - Extremity Problem General Chief complaint: Extremity Problem,Nontraumatic Stated complaint: Left Leg Pain Time Seen by Provider: 04/10/24 09:38 Source: patient Mode of arrival: ambulatory Limitations: no limitations History of Present Illness HPI Narrative: Echo is a 44-year-old female patient presenting to the clinic today with complaints of left leg pain and swelling x2 days. Pain is to the anterior lower leg and posterior calf from the knee down. Has taken ibuprofen for pain and this has relieved some of her pain. States her leg will go from really hot feeling to really cold. Pain is worse with ambulation. Has been elevating her left leg. She contacted her PCP and is awaiting to hear back from her PCP to get a Doppler of her left leg. She is requesting a work note as she had to leave work yesterday. Would like a note for today and tomorrow. She does not wish to be transferred to the ER for further evaluation and is wanting to wait and her back from her PCP. Does take estradiol OCP and applies a estradiol patch. Denies cigarette use but vapes. No history of blood clotting of disorder. No known injury. No recent travel. No history CAD, HTN, hyperlipedema, PAD, or claudication. Denies dizziness, chest pain, or shortness of breath. Family history of blood clots- grandpa had a PE and and uncle had DVT and got his leg removed. Related Data Home Medications ?Medication ?Instructions ?Recorded ?Confirmed ?Last Taken ?Type cetirizine 10 mg tablet (Zyrtec) 10 mg PO DAILY PRN allergies 06/18/22 03/14/24 08/01/23 History fluticasone propionate 50 1 spray intranasal DAILY 06/18/22 03/14/24 08/01/23 History mcg/actuation nasal spray,suspension (Flonase Allergy Relief) mecobalamin (vitamin B12) 10,000 1,000 mcg IM WEEKLY 11/10/22 03/14/24 12/25/23 History mcg solution for injection riboflavin (vitamin B2) 400 mg 400 mg PO DAILY 11/10/22 03/14/24 12/29/23 History tablet ferrous sulfate 325 mg (65 mg 325 mg PO DAILY 10/12/23 03/14/24 12/28/23 History iron) tablet Allergies Allergy/AdvReac Type Severity Reaction Status Date / Time No Known Allergies Allergy Verified 04/10/24 09:45 Review of Systems Review of Systems: Pertinent positives per HPI. Patient denies any fever, chills, rash, headache, visual changes, dizziness, cough, runny nose, sore throat, shortness of breath, chest pain, palpitations, nausea, vomiting, diarrhea, constipation, abdominal pain, or any urinary issues. [facility] Past Medical History Medical History (Updated 04/10/24 @ 10:03 by Fred Santiago, JOSÉ) BMI 32.0-32.9,adult Edema of left lower extremity Thoracic back pain Dysuria COVID-19 (~03/01/19) positive antibody test 04/30/2020. Positive COVID 01/31/2024. Otitis media Left lower quadrant abdominal pain Restless legs syndrome iron 106 with 32% saturation and ferritin 29 on 09/29/2023. Mixed hyperlipidemia (09/29/23) total cholesterol 232, triglycerides 145, HDL 58, LDL 147 with ratio 4.0 on 09/29/2023. Vitamin B12 deficiency Level normal at 12 152 with folic acid 6.7 and hemoglobin 13.6 on 09/29/2023. BMI 30.0-30.9,adult Obesity (BMI 30.0-34.9) Anal pain Hemorrhoids Fecal incontinence Hemiplegic migraine Migraine Left wrist pain Fatigue Cough Chest x-ray 08/13/2022 normal. Ganglion cyst of dorsum of left wrist Acute non-recurrent maxillary sinusitis Microcalcification of breast Hypersomnia (~2021) Home sleep study 03/10/2022 did not reveal TANGELA. Referral to clinical interviewer further testing. Hypothyroidism, unspecified (~12/2021) treated by rail loader, Dr. Galo 01/01/2022. TSH suppressed at 0.14, free T4 0.9, T3 total 101 on 09/29/2023. Abnormal thyroid screen (blood) Abnormal thyroid blood test Irregular periods Screening mammogram, encounter for Vaginal delivery 08/17/05 post hemorrhage Encounter for IUD removal 12/05/15 Mirena removal Encounter for IUD insertion 07/29/11 Mirena insertion Abnormal Pap smear of cervix ASCUS/ NEG HPV-2008 Nonunion of fracture of foot Chronic toe pain, left foot Overweight (BMI 25.0-29.9) Viral gastroenteritis Migraine without aura and without status migrainosus, not intractable (~03/2021) CT angiogram of the head and neck on 10/13/2022 was unremarkable. Pain and swelling of toe of left foot (02/09/21) crush injury 02/09/2021 left 5th toe . X-ray on 04/15/2021 reveals possible healing fractures of the proximal and distal phalanx BMI 28.0-28.9,adult Pharyngitis Attention deficit hyperactivity disorder (ADHD), combined type, mild Caffeine abuse, continuous Patient stopped all caffeine. BMI 27.0-27.9,adult Mild intermittent asthma in adult without complication Seasonal allergic rhinitis Chronic anxiety Encounter for screening for other viral diseases Bipolar disorder DVT prophylaxis Blurry vision Neurological symptoms ADD (attention deficit disorder) Depression Kidney stones Surgical History Surgical History History of left salpingo-oophorectomy (12/30/23) Robotic assisted left salpingo oophorectomy History of orthopedic surgery left toe surgery flatbed ran over foot History of tubal ligation (12/05/14) History of cholecystectomy (~2009) Status post cystoscopy History of right salpingo-oophorectomy Status post tonsillectomy History of dilatation and curettage Family History Family History Father Hypertension Mother Breast cancer Social History Social History Smoking status: Never smoker Tobacco type: cigarettes Additional smoking assessment comments: 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 Gender identity (if verbalized by the patient): Female Sexual Orientation (if Verbalized by the Patient): Straight or Heterosexual Spiritual care concerns: No Agree to blood products: Yes Comments At the time of my signature, I reviewed and agree with the nursing past medical, surgical, social, and family history. There is no relevant family history pertinent to the patient complaint. Exam Narrative: General: Well-developed, well nourished, in no apparent distress Head: Normocephalic, atraumatic. Cardio: Regular rate and rhythm, s1 and s2 normal, no murmur appreciated. Resp: Clear to auscultation bilaterally, no rhonchi, rales, wheezing or rubs. Musculoskeletal: No deformity, tender to palpation over the anterior tib-fib and posterior calf muscle, positive Homans sign, grossly normal range of motion, muscle strength strong and equal, peripheral pedal pulse strong, no edema, normothermia,no cyanosis or redness, normal gait and station Course Course Emergency Course: Portions of this record may have been created with voice recognition software. Level of Care: Express Care Visit Vital Signs Vital signs: Vital Signs Temperature 36.3 C L 04/10/24 09:53 Pulse Rate 66 04/10/24 09:53 Respiratory Rate 16 04/10/24 09:53 Blood Pressure 122/79 04/10/24 09:53 Pulse Oximetry 97 04/10/24 09:53 Temperature 36.3 C L 04/10/24 09:53 Pulse Rate 66 04/10/24 09:53 Respiratory Rate 16 04/10/24 09:53 Blood Pressure 122/79 04/10/24 09:53 Pulse Oximetry 97 04/10/24 09:53 Vital signs reviewed MDM - Extremity (Nontraumatic) MDM Narrative Medical decision making narrative: At the time of visit patient is resting comfortably on the exam table. Patient appears to be nontoxic. Vital signs are stable. She denies any dizziness, chest pain, or shortness of breath. Wells criteria for DVT: Score is a 1 placing the patient at moderate risk: * A score of 1-2 is considered moderate risk with a pretest probability of 17%.* * These patients should proceed to?high-sensitivity?d-dimer testing (moderate sensitivity d-dimer is not sufficient). * A negative?high-sensitivity?d-dimer is sufficient for rule out of DVT in a moderate risk patient with a probability of <1%. * A positive?high sensitivity?d-dimer should proceed to US testing. * A negative US is sufficient for ruling out DVT. * A positive US is concerning for DVT, strongly consider treatment with anticoagulation. Wells criteria for PE: Score is a 3 placing the patient at a moderate risk * Patient is determined to be moderate risk (score 2-6 points, 16.2% incidence of PE): consider high sensitivity d-dimer testing or CTA. * If the dimer is negative consider stopping workup. * If the dimer is positive consider CTA. Plan: Recommend patient go to the ED for further evaluation to r/o DVT and she declined and would like to hear back from her PCP prior to going to the ED. Risk of DVT were reviewed with the patient- heart attack, stroke, heart failure, organ failure, disability, and . Patient voiced understanding and states she will go to the ED if symptoms worsen or if she does not hear back from her PCP. Work note was given. Supportive measures were discussed with the patient and they voiced understanding discharge instructions and agrees to treatment plan. Strict return precautions reviewed Differential Diagnosis Differential diagnosis: Likely cellulitis, superficial thrombophlebitis, lower extremity edema, deep vein thrombosis of lower extremity and other (CAD, PAD,Claudification, muscle strain,arthritis) Discharge Plan Discharge Clinical Impression: Pain and swelling of left lower leg Patient Disposition: Home, Self-Care Condition: Stable Instructions: Antibiotic Form, Deep Vein Thrombosis (ED) Additional Instructions: I suspect you may have a deep vein thrombosis (DVT) Patient declined going to the ER today as she is waiting to hear back from her PCP to receive a Doppler order. Encourage patient to go to the emergency room if symptoms worsen or if she is unable to get a Doppler order from her primary care doctor to rule out DVT Risk of DVT untreated-stroke, heart attack, pulmonary embolism, heart failure, organ failure, disability, and May take Tylenol/Motrin as needed for pain Follow-up with PCP as soon as possible or go to the emergency room as discussed Patient Language: Northern Irish Prescriptions: No Action ibuprofen 600 mg tablet 600 mg PO QID PRN (Reason: pain) Qty: 20 0RF Rx Instructions: with food mecobalamin (vitamin B12) 10,000 mcg recon soln 1,000 mcg IM WEEKLY zolmitriptan [Zomig] 5 mg tablet See Rx Instructions PO .COMPLEX Qty: 14 5RF Rx Instructions: take 1 tab at onset of headache; if no relief, may repeat 1 tab after at least 2 hrs; max = 2 tabs/24 hrs PO riboflavin (vitamin B2) 400 mg tablet 400 mg PO DAILY cetirizine [Zyrtec] 10 mg tablet 10 mg PO DAILY PRN (Reason: allergies) fluticasone propionate [Flonase Allergy Relief] 50 mcg/actuation spray,suspension 1 spray intranasal DAILY Rx Instructions: administer into each nostril ferrous sulfate 325 mg (65 mg iron) tablet 325 mg PO DAILY levothyroxine [Unithroid] 75 mcg tablet 75 mcg PO . Q.a.m. Qty: 90 3RF dextroamphetamine-amphetamine [Adderall] 5 mg tablet 5 mg PO BID Qty: 60 0RF Rx Instructions: administer doses at least 4-6 hours apart escitalopram oxalate [Lexapro] 20 mg tablet 20 mg PO DAILY Qty: 90 3RF buspirone 10 mg tablet 10 mg PO BID Qty: 180 3RF estradiol 0.075 mg/24 hr patch semiweekly 1 patch transdermal 2XW Qty: 16 1RF Rx Instructions: apply 1 patch for 3 days alternating with 1 patch for 4 days each week norethindrone ac-eth estradiol 1-20 mg-mcg tablet 1 tablet PO DAILY Qty: 84 5RF Rx Instructions: 1 tablet daily in a continuous manner skipping placebo to skip cycles Follow-up/Referrals: UNKNOWN,DOCTOR [Non-Staff] - Stand Alone Forms: Work/School Release IP Time of Disposition: 10:01 Quality NIHSS Nursing Documentation ED NIHSS nursing documentation: reviewed/agree
[2024-04-10 09:53] VITALS: BP 122/79; PULSE 66; RESP 16; TEMP 36.3; O2SAT 97
== END 2024-04-10 10:06 | disposition home or self-care (01) ==
PROVIDERS: Emergency Provider Nurse Practitioner Family
DX: M79.662 Pain in left lower leg (principal); R22.42 Localized swelling, mass and lump, left lower limb; F17.290 Nicotine dependence, other tobacco product, uncomplicated; G25.81 Restless legs syndrome; E78.2 Mixed hyperlipidemia; E66.9 Obesity, unspecified; Z68.32 Body mass index [BMI] 32.0-32.9, adult; E03.9 Hypothyroidism, unspecified; J45.909 Unspecified asthma, uncomplicated; E53.8 Deficiency of other specified B group vitamins; F90.9 Attention-deficit hyperactivity disorder, unspecified type; F41.9 Anxiety disorder, unspecified; F32.A Depression, unspecified; Z83.2 Family history of diseases of the blood and blood-forming organs and certain disorders involving the immune mechanism
CPT/HCPCS: 99212; G0463

== ENCOUNTER 2024-04-10 18:53 | Emergency (ER) | payer BC, OTHER, SELFPAY ==
--- NOTE | ~2024-04-10 | US_ITS ---
EXAMINATION: US venous doppler [facility] DATE: 04/10/2024 19:47 INDICATION: Lower limb pain. TECHNIQUE: Grayscale images without and with compression and Doppler images of the left lower extremi ty veins were obtained. COMPARISON: None FINDINGS: The left common femoral vein, profunda (deep) femoral vein, femoral vein, popliteal vein, peroneal v ein, posterior tibial veins, gastrocnemius vein, and greater saphenous vein are patent. IMPRESSION: Patent left lower extremity veins. No evidence of deep venous thrombosis. 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
[2024-04-10 19:03] VITALS: BP 119/91; PULSE 70; RESP 18; TEMP 36.6; O2SAT 100
--- OUTSIDE RECORDS SUMMARY | 2024-04-10 19:23 | XMS_ITS | Clinical Summary ---
Author Organization [email or web address] Address [address] [place] [address] Care Team Providers Care Speech Therapist Technician Name Role Phone Blayne Davidson MD Primary Care Provider [phone] Source Comments [email or web address],non-owned Affiliates and Associated Physician Practices is amultiple site organization consisting of ambulatory clinics and hospital sitesin [place], [place], [place] and [place]. This disclosure is being madepursuant to the Care Everywhere program and may not contain all information available regarding this patient. Last updated 17.[email or web address] Allergies No known active allergies Medications * Be aware that medications may not be up to date on this document. Alwaysverify current medications with the patient. Medication Sig Dispensed Refills Start Date End Date Status amphetamine-dextroam phetamine (Adderall) 10 MG tablet TAKE 1 TABLET BY MOUTH TWICE DAILY AT LEAST 4-6 HOURS APART Active benztropine (Cogentin) 0.5 MG tablet TK 1 T PO QAM UTD Active busPIRone (Buspar) 10 MG tablet Take 1 (one) tablet by mouth 2 times daily Active cyanocobalamin (Vitamin B-12) injection 1,000 (one thousand) mcg every 30 days 09/01/2022 Active escitalopram (Lexapro) 20 MG tablet Take 1 (one) tablet by mouth once daily Active fluticasone propionate (Flonase) 50 MCG/ACT nasal spray Active levothyroxine (Unithroid) 75 MCG tablet Take 1 (one) tablet by mouth once daily 07/06/2022 Active liothyronine (Cytomel) 5 MCG tablet Take 1 (one) tablet by mouth once daily 08/11/2022 Active cetirizine (ZyrTEC) 10 MG tablet Take 1 (one) tablet by mouth once daily Active metoprolol succinate XL 24hr (Toprol XL) 25 MG tablet Take 1 (one) tablet by mouth once daily 12/28/2022 Active omeprazole (PriLOSEC) 20 MG capsule Take 1 (one) capsule by mouth once daily 11/06/2022 Active vitamin B2 (Riboflavin) 100 MG tablet Take 4 (four) tablets by mouth once daily Active azithromycin (Zithromax) 250 MG tablet 03/22/2023 Active BinaxNOW COVID-19 Ag Home Test KIT Use as Directed on the Package 02/03/2023 Active gabapentin (Neurontin) 100 MG capsuleIndications:H emiplegic migraine without status migrainosus, not intractable,Migraine without aura and without status migrainosus, not intractable Take 1 (one) capsule by mouth at bedtime 30 capsule 11 07/15/2023 Active cefdinir (Omnicef) 300 MG capsule Take 1 (one) capsule by mouth every 12 hours 07/15/2023 Active Active Problems Problem Noted Date Diagnosed Date Adnexal tenderness 02/22/2023 02/22/2023 Attention deficit disorder of adult 02/22/2023 02/22/2023 Episodic mood disorder 02/22/2023 Female stress incontinence 02/22/202302/22 Vitamin B12 deficiency (non anemic) 06/16/2022 02/22/2023 Hypothyroidism 12/31/2021 02/22/2023 Family History Medical History Relation Name Comments Migraine Mother Relation Name Status Comments Mother Alive Social History Tobacco Use Types Packs/Day Years Used Date Smoking Tobacco: Never Smokeless Tobacco: Never Tobacco Cessation:Counseling Given: Not Answered Alcohol Use Standard Drinks/Week Comments Not Currently 0 (1 standard drink = 0.6 oz pur e alcohol) Sex and Gender Information Value Date Recorded Sex Assigned at Not on file Gender Identity Not on file Sexual Orientation Not on file Last Filed Vital Signs Vital Sign Reading Time Taken Comments Blood Pressure 119/66 07/26/2023 2:44 PM CDT Pulse 76 07/26/2023 2:44 PM CDT Temperature 36.1 C (97 F) 07/26/2023 2:44 PM CDT Respiratory Rate - - Oxygen Saturation 96% 07/26/2023 2:44 PM CDT Inhaled Oxygen Concentration - - Weight 68 kg (150 lb) 07/26/2023 2:44 PM CDT Height 152.4 cm (5') 07/26/2023 2:44 PM CDT Body Mass Index 29.29 07/26/2023 2:44 PM CDT Plan of Treatment Health Maintenance Due Date Last Done Comments LIPID TESTING 1982 MAMMOGRAM 1982 PAP SMEAR 1982 HIV SCREENING 1997 HEPATITIS C SCREENING 01/03/2000 DTAP/TDAP/TD VACCINES (1 - Tdap) 2001 HEPATITIS B VACCINE (1 of 3 - 19+ 3-dose series) 2001 SCREENING FOR DIABETES 09/08/2022 COVID-19 VACCINE (1 - 2023-2 5 season) 2023 INFLUENZA VACCINE (#1) 2023 DEPRESSION SCREENING 02/16/2024 ZOSTER VACCINE (1 of 2) 01/08/2032 HIB VACCINE Aged Out No longer eligi ble based on patient's age to complete this topic HPV VACCINE Aged Out No longer eligi ble based on patient's age to complete this topic MENINGOCOCCAL (Group B) VACCINE Aged Out No longer eligible based on patient's age to complete this topic MENINGOCOCCAL VACCINE Aged Out No mat dilia eligible based on patient's age to complete this topic PNEUMOCOCCAL VACCINE Aged Out No long er eligible based on patient's age to complete this topic Care Teams Speech Therapist Technician Relationship Specialty Start Date End Date Blayne Davidson MD [address] [place] [address] PCP - General Family Medicine 07/01/22
--- OUTSIDE RECORDS SUMMARY | 2024-04-10 19:23 | XMS_ITS | Clinical Summary ---
Author Organization [facility] Address [facility] [address] [place] [address] Care Team Providers Care Employment Recruiter Name Role Phone None, Provider MD Primary Care Provider Unavaila ble Allergies No known active allergies Medications amphetamine-de xtroamphetamin e (ADDERALL) 10 MG tablet dextroamphetamine -amphetamine 10 mg tablet Active busPIRone (BUSPAR) 10 MG tablet buspirone 10 mg tablet TAKE 1 TABLET BY MOUTH TWICE DAILY Active carBAMazepine XR (TEGRETOL XR) 100 MG 12 hr tablet carbamazepine ER 100 mg tablet,extended release,12 hr Active vitamin D3, cholecalcifero l, (CHOLECALCIFER OL) 1000 UNIT Tab tablet Vitamin D3 25 mcg (1,000 unit) tablet Active escitalopram (LEXAPRO) 20 MG tablet 2 (two) times a day. Active fluticasone propionate (FLONASE) 50 MCG/ACT nasal spray fluticasone propionate 50 mcg/actuation nasal spray,suspension Active levothyroxine (UNITHROID) 75 MCG tablet daily. Active liothyronine (CYTOMEL) 5 MCG Tab daily. Active [facility] 3-6-9 Cap 1 tablet. Active meloxicam (MOBIC) 15 MG tablet Take 1 tablet (15 mg total) by mouth daily. 30 tablet Active Social History Tobacco Use Types Packs/Day Years Used Date Smoking Tobacco: Never Assessed Tobacco Cessation:Counseling Given: Not Answered Comments No Sex and Gender Information Value Date Recorded Sex Assigned at Not on file Legal Sex Female 9:40 AM MAIL CARRIER Gender Identity Not on file Sexual Orientation Not on file Last Filed Vital Signs Vital Sign Reading Time Taken Comments Blood Pressure 115/69 04/12/2022 9:58 AM MAIL CARRIER Pulse 90 04/12/2022 9:58 AM MAIL CARRIER Temperature 36.9 C (98.5 F) 04/12/2022 9:58 AM MAIL CARRIER Respiratory Rate 18 04/12/2022 9:58 AM MAIL CARRIER Oxygen Saturation 100% 04/12/2022 9:58 AM MAIL CARRIER Inhaled Oxygen Concentration - - Weight 56.7 kg (125 lb) 04/12/2022 9:58 AM MAIL CARRIER Height 154.9 cm (5' 1 ) 04/12/2022 9:58 AM MAIL CARRIER Body Mass Index 23.62 04/12/2022 9:58 AM MAIL CARRIER Plan of Treatment Health Maintenance Due Date Last Done Comments Cervical Cancer Screening Pap Smear (Age 30 to 64) Every 3 Years 1982 Annual Physical 1985 Hepatitis C 01/08/2000 DTaP, Tdap and Td Vaccines (1 - Tdap) 2001 Hepatitis B Vaccines (1 of 3 - 19+ 3-dose series) 2001 Cervical Cancer Screening Pap with HPV Testing (Age 30 to 64) Every 5 Years 01/08/2012 Cervical Cancer Screening with HPV 01/08/2012 Mammogram Screening 2022 COVID-19 Vaccine ( season) 2023 11/05/2021, 01/27/2021, 06/11/2020, Additional history exists Influenza Adult (#1) 2023 11/21/2020, 11/09/2019, 11/29/2018, Additional history exists HPV Vaccines Aged Out No longer eligi ble based on patient's age to complete this topic Meningococcal B Vaccine Aged Out No l onger eligible based on patient's age to complete this topic Meningococcal Vaccine Aged Out No mat dilia eligible based on patient's age to complete this topic Pneumococcal Vaccine: Pediatrics (0 to 5 Years) and At-Risk Patients (6 to 64 Years) Aged Out No longer eligible based on patient's age to complete this topic RSV Immunizations Under 20 Months Aged Out No longer eligible based on patient's age to complete this topic Insurance [employer] Care Teams Employment Recruiter Relationship Specialty Start Date End Date None, Provider, MD PCP - General UNKNOWN PHYSICIAN SPECIALTY 04/12/22
--- OUTSIDE RECORDS SUMMARY | 2024-04-10 19:23 | XMS_ITS | Referral Summary ---
Author Organization [facility] Address [address] [place] [address] Care Team Providers Care Associate Professor Of Church Music Name Role Phone Blayne Davidson MD Primary Care Provider [phone] Source Comments [facility],non-owned Affiliates and Associated Physician Practices is amultiple site organization consisting of ambulatory clinics and hospital sitesin [place], [place], [place] and [place]. This disclosure is being madepursuant to the Care Everywhere program and may not contain all information available regarding this patient. Last updated 17.[facility] Allergies No known active allergies Medications * [...] (non anemic) 06/16/2022 02/22/2023 Hypothyroidism 12/31/2021 02/22/2023 Social History Tobacco Use Types Packs/Day Years [...] 07/26/2023 2:44 PM CDT Plan of Treatment Not on file Care Teams Associate Professor Of Church Music Relationship Specialty Start Date End Date Blayne Davidson MD [address] [place] [address] PCP - General Family Medicine 07/01/22
--- OUTSIDE RECORDS SUMMARY | 2024-04-10 19:23 | XMS_ITS | Patient Health Summary ---
Author Organization [facility] Address [address] 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 This disclosure is being madepursuant to the Care Everywhere program and may not contain all information available regarding this patient. Last updated 17.[facility] Allergies No known active allergies Medications * Be aware that medications may not be up to date on this document. Alwaysverify current medications with the patient. * amphetamine-dextroamphetamine (Adderall) 10 MG tablet TAKE 1 TABLET BY MOUTH TWICE DAILY AT LEAST 4-6 HOURS APART * benztropine (Cogentin) 0.5 MG tablet TK 1 T PO QAM UTD * busPIRone (Buspar) 10 MG tablet Take 1 (one) tablet by mouth 2 times daily * cyanocobalamin (Vitamin B-12) injection(Started 09/01/2022) 1,000 (one thousand) mcg every 30 days * escitalopram (Lexapro) 20 MG tablet Take 1 (one) tablet by mouth once daily * fluticasone propionate (Flonase) 50 MCG/ACT nasal spray * levothyroxine (Unithroid) 75 MCG tablet(Started 07/06/2022) Take 1 (one) tablet by mouth once daily * liothyronine (Cytomel) 5 MCG tablet(Started 08/11/2022) Take 1 (one) tablet by mouth once daily * cetirizine (ZyrTEC) 10 MG tablet Take 1 (one) tablet by mouth once daily * metoprolol succinate XL 24hr (Toprol XL) 25 MG tablet(Started 12/28/2022) Take 1 (one) tablet by mouth once daily * omeprazole (PriLOSEC) 20 MG capsule(Started 11/06/2022) Take 1 (one) capsule by mouth once daily * vitamin B2 (Riboflavin) 100 MG tablet Take 4 (four) tablets by mouth once daily * azithromycin (Zithromax) 250 MG tablet(Started 03/22/2023) * BinaxNOW COVID-19 Ag Home Test KIT(Started 02/03/2023) Use as Directed on the Package * gabapentin (Neurontin) 100 MG capsule(Started 07/15/2023) Take 1 (one) capsule by mouth at bedtime 11 refills by 07/14/2024 * cefdinir (Omnicef) 300 MG capsule(Started 07/15/2023) Take 1 (one) capsule by mouth every 12 hours Active Problems Problem Noted Date Diagnosed Date [...] Mass Index 29.29 07/26/2023 2:44 PM CDT Procedures * XR WRIST LEFT 3VW OR MORE(Performed 06/22/2023) Performed for Wrist pain, acute, left * XR WRIST LEFT 3VW OR MORE(Performed 01/12/2023) Performed for Chronic pain of left wrist * XR WRIST LEFT 3VW OR MORE(Performed 10/06/2022) Performed for Chronic pain of left wrist * XR HAND LEFT 3VW OR MORE(Performed 10/06/2022) Performed for Chronic pain of left wrist * RHEUMATOID FACTOR IGG/IGM/IGA AB(Performed 09/08/2022) Performed for Undifferentiated inflammatory arthritis (HCC), Left wrist pain, Rheumatoid factor positive * CYCLIC CITRULLINATED PEPTIDE(CCP) AB IGG(Performed 09/08/2022) Performed for Undifferentiated inflammatory arthritis (HCC), Left wrist pain, Rheumatoid factor positive * ERYTHROCYTE SEDIMENTATION RATE(Performed 09/08/2022) Performed for Undifferentiated inflammatory arthritis (HCC), Left wrist pain, Rheumatoid factor positive * C-REACTIVE PROTEIN(Performed 09/08/2022) Performed for Undifferentiated inflammatory arthritis (HCC), Left wrist pain, Rheumatoid factor positive Results * XR WRIST LEFT 3VW OR MORE (06/22/2023 8:50 AM CDT) Only the most recent of3 resultswithin the time period is included. Anatomical Region Laterality Modality Wrist / Hand Radiographic Jessa ging 06/22/2023 8:52 AM CDT Impressions 06/22/2023 8:54 AM CDT IMPRESSION: Normal wrist x-ray. Report dictated by Contreras Rendon DO (residential gas heat technician). I, Rinku Hughes MD have personally reviewed and interpreted this examination/study. > Interpreting Provider: Rinku Hughes MD on 06/22/2023 8:54 AM Narrative 06/22/2023 8:54 AM CDT PROCEDURE: XR WRIST LEFT 3VW OR MORE, DATE/TIME OF EXAM: 06/22/2023 8:50 AM, LOCATION [facility] INDICATION: M25.532: Wrist pain, acute, left ADDITIONAL CLINICAL INFORMATION: Ordering Provider Reason For Exam: Technologist Note: Additional: COMPARISON: 01/12/2023 FINDINGS: The osseous structures are intact and well aligned without acute fracture or dislocation. The joint spaces are preserved. Bone density and texture are normal. No soft tissue swelling is present. Procedure Note Rinku Hughes MD - 06/22/2023 PROCEDURE: XR WRIST LEFT 3VW OR MORE, DATE/TIME OF EXAM: 06/22/2023 8:50 AM, LOCATION [facility] INDICATION: M25.532: Wrist pain, acute, left ADDITIONAL CLINICAL INFORMATION: Ordering Provider Reason For Exam: Technologist Note: Additional: COMPARISON: 01/12/2023 FINDINGS: The osseous structures are intact and well aligned without acutefracture or dislocation. The joint spaces are preserved. Bone density and texture are normal. No soft tissue swelling is present. IMPRESSION: Normal wrist x-ray. Report dictated by Contreras Rendon DO (residential gas heat technician). Rinku Roberts MD have personally reviewed and interpreted this examination/study. > Interpreting Provider: Rinku Hughes MD on 06/22/2023 8:54 AM Claus Deutsch MD DIAGNOSTIC IMAGING O RDERABLES * XR HAND LEFT 3VW OR MORE (10/06/2022 8:35 AM CDT) Anatomical Region Laterality Modality Wrist / Hand Radiographic Jessa ging 10/06/2022 8:35 AM CDT Impressions 10/06/2022 8:56 AM CDT IMPRESSION: Normal. Report dictated by Willian Davis DO (residential gas heat technician). Rinku Roberts MD have personally reviewed and interpreted this examination/study. > Interpreting Provider: Rinku Hughes MD on 10/06/2022 8:56 AM Narrative 10/06/2022 8:56 AM CDT PROCEDURE: XR HAND LEFT 3VW OR MORE, DATE/TIME OF EXAM: 10/06/2022 8:36 AM, LOCATION [facility] INDICATION: M25.532: Chronic pain of left wrist G89.29: Chronic pain of left wrist COMPARISON: None. FINDINGS: No fracture or dislocation is present. The joint spaces are normal. No erosions are seen. The soft tissues are normal. Procedure Note Rinku Hughes MD - 10/06/2022 PROCEDURE: XR HAND LEFT 3VW OR MORE, DATE/TIME OF EXAM: 10/06/2022 8:36 AM, LOCATION [facility] INDICATION: M25.532: Chronic pain of left wrist G89.29: Chronic pain of left wrist COMPARISON: None. FINDINGS: No fracture or dislocation is present. The joint spaces are normal. No erosions are seen. The soft tissues are normal. IMPRESSION: Normal. Report dictated by Willian Davis DO (residential gas heat technician). I, Rinku Hughes MD have personally reviewed and interpreted this examination/study. > Interpreting Provider: Rinku Hughes MD on 10/06/2022 8:56 AM Radha Armijo PA-C DIAGNOSTIC IMAGING O RDERABLES * (ABNORMAL) RHEUMATOID FACTOR IGG/IGM/IGA AB (09/08/2022 12:06 PM CDT) Pathologist [facility] Rheumatoid Factor IgG <5 <=6 U [facility] Rheumatoid Factor IgA <5 <=6 [facility] Rheumatoid Factor IgM 57(H) <=6 U [facility] Comment: Test Performed at: [facility]/[address] ALLISON GUAJARDO MD,PHD Blood BLOOD SPECIMEN / Unknown 09/08/2022 12:06 PM CDT 09/08/2022 12:07 PM CDT Wild Miller MD LAB - SEROLOGY ORDER [facility] [address] [place] [address] * C-REACTIVE PROTEIN (09/08/2022 12:06 PM CDT) C-Reactive Protein 6.2 <8.0 mg/L [facility] Comment: Test Performed at: [facility] [address] [id number] SHAYNE BANKS MD Blood BLOOD SPECIMEN / Unknown 09/08/2022 12:06 PM CDT 09/08/2022 12:07 PM CDT Wild Miller MD LAB - CHEMISTRY MINNIE HARDY Performing Organization Address [facility] Co de Phone Number [facility] [id number] [place], [place] [id number] * CYCLIC CITRULLINATED PEPTIDE(CCP) AB IGG (09/08/2022 12:06 PM CDT) Pathologist [facility] Cyclic Citrullinated Peptide Antibody IgG <16 UNITS [facility] Comment: Reference Range Negative: <20 Weak Positive: 20-39 Moderate Positive: 40-59 Strong Positive: >59 Test Performed at: [facility] [address] [place] [id number] SHAYNE BANKS MD Blood BLOOD SPECIMEN / Unknown 09/08/2022 12:06 PM CDT 09/08/2022 12:07 PM CDT Wild Miller MD LAB - CHEMISTRY MINNIE HARDY Performing Organization Address [facility] Co de Phone Number [facility] [phone] [place] [id number] * ERYTHROCYTE SEDIMENTATION RATE (09/08/2022 12:06 PM CDT) [facility] Erythrocyte Sedimentation Rate Westergren 9 < OR = 20 mm/h [facility] Comment: Test Performed at: [facility] [employer] [place] [id number] SHAYNE BANKS MD Blood BLOOD SPECIMEN / Unknown 09/08/2022 12:06 PM CDT 09/08/2022 12:07 PM CDT Wild Miller MD LAB - HEMATOLOGY MACHELLE TAN Performing Organization Address [facility] Co de Phone Number [facility] [address] [place] [phone] Care Teams Blasting [employer]er Relationship Specialty Start Date End Date Blayne Davidson MD [address] [place] [address] PCP - General Family Medicine 07/01/22
--- OUTSIDE RECORDS SUMMARY | 2024-04-10 19:23 | XMS_ITS | Continuity of Care Document ---
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 [address] [place], [id number], [place]. tel:[phone] Family History Family Member Type Diagnosis Age At Onset No Information Payers Payer name Insurance type Covered libertarian ID Authoriza tion(s) No Information Social History [...]
--- OUTSIDE RECORDS SUMMARY | 2024-04-10 19:23 | XMS_ITS | Data Portability ---
[facility] Organization [facility] Address [address] [place] [address] Assessment No assessment recorded. Plan of Treatment Reminders Order Date Submit Date Provider Last Modified By Organization Details Last Modified Time Details Appointments None recorded. Lab SARS CoV 2 RNA (COVID-19) , QL, publicity expert-PCR, respirator y specimen 2019 [facility], [address], [place], [address], 0 22:26:54 Referral None recorded. Procedures None recorded. Surgeries None recorded. Imaging XR, hip, unilateral 2019 [facility] ([facility]), [address] [facility], [place], [address], 0 13:20:47 Medication Orders Zithromax Z-Len 250 mg tablet 2019 020 [id number], [address], [place], [address], 0 15:41:06 Zithromax Z-Len 250 mg tablet 2019 020 [id number], [address] , [place], [address], 0 12:40:02 Medrol (Len) 4 mg tablets in a dose pack 2019 020 [id number], [address], [place], [address], 0 13:19:39 tramadol 50 mg tablet 2019 020 [facility] #[id number], [address], [place], [address], 0 13:20:47 tramadol 37.5 mg-acetami nophen 325 mg tablet 2019 020 [facility] #[id number], [address], [place], [address], 0 13:20:31 albuterol sulfate HFA 90 mcg/actuat ion aerosol inhaler 2019 020 [facility] #[id number], [address], [place], [address], 0 16:20:49 montelukas t 10 mg tablet 2019 020 [facility] #[id number], [address], [place], [address], 0 16:20:48 fluticason e 113 mcg-salmet wolf 14 mcg/actuat ion breath activated powdr 2019 020 [facility] #[id number], [address], [place], [address], 0 16:20:47 montelukas t 10 mg tablet 2019 020 [facility], [address] [place], [address], 0 11:49:19 albuterol sulfate HFA 90 mcg/actuat ion aerosol inhaler 2019 020 [facility], [address] [place], [address], 0 11:49:17 albuterol sulfate 2.5 mg/3 mL (0.083 %) solution for nebulizati on 2019 [facility], [address] [place], [address], 0 11:49:20 fluticason e 113 mcg-salmet wolf 14 mcg/actuat ion breath activated powdr 2019 [facility], [address] [place], [address], 0 11:49:22 Patient TargetsNo targets recorded. Patient Instructions Encounter Date Encounter Id Patient Instructions Last Modified By Organization Details Last Modified Time 04/12/2019 [id number] controlling your asthma: care instructions [facility] Not available 04/12/2019 11:47:13 learning about asthma [facility] Not available 04/12/2019 11:47:13 10/17/2019 [id number] controlling your asthma: care instructions [facility] Not available 10/17/2019 16:20:45 learning about asthma [facility] Not available 10/17/2019 16:20:45 01/19/2020 [id number] upper respiratory infection (cold): care instructions [facility] Not available 01/19/2020 12:40:00 02/12/2020 [id number] Reviewed the following recommendations: -Stay home and separate from others as much as possible. -Monitor your symptoms and seek medical attention for trouble breathing, persistent chest pain, confusion, or bluish lips or face. -Wear a mask if you must be around other people. -Wash your hands often for 20 seconds with soap and water and clean high-touch surfaces daily -You may discontinue home isolation if your symptoms are improving and it has been 10 days since symptoms started. [email or web address] Not available 02/12/2020 15:29:11 Reason for Referral None Reported. Results Created Date Observation Date Name Description Value Unit Range Abnormal Flag Note LastModifiedBy Organization Detail LastModifiedTime 03/20/19 20 03/16/2019 MRI, brain + brain stem, w/wo contr ast No observ ation record ed. [facility] Not Available 2019 13:48:57 03/20/19 20 03/15/2019 CT, brain , w/o contr ast No observ ation record ed. [facility] Not Available 2019 13:48:57 03/29/19 20 03/22/2019 elect stefan fraser No observ ation record ed. [facility] Not Available 2019 12:41:43 04/06/19 20 04/05/2019 XR, chest , 2 view No observ ation record ed. [facility] (Imaging) [address], [place], [address], 04/07/2019 17:21:31 04/12/19 20 04/06/2019 compl ete PFT w/ post [facility] hodil ator karina metry * No observ ation record ed. [facility] [place], [address], 04/20/2019 14:56:11 Result Notes None recorded. 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, [place], [address] [facility] [[email or web address] [place] [facility] 6 17:21:16 Acute vomiting 28643144 Active Melvin Barrios MD Attn: Accountmoses perkins,[address] [facility], [place], [address], [place] [facility] 6 17:21:16 Anxiety 28811742 Active Preeti Bell [place], [place] [facility] 5 14:29:22 Bipolar disorder 85136464 Active Preeti Bell [place] [facility] 5 14:30:33 Depressive disorder 25027719 Active Preeti Bell [place] [facility] 5 14:30:33 Cyst of scalp 914665702 Active Melvin Barrios MD Attn: Accountmoses g,[address] [facility], [place], [address], [place] [facility] 5 14:53:13 Recurrent acute sinusitis 260859288 Active Melvin Barrios MD Attn: Accountmoses g,[address] [facility], [place], [address], [place] [facility] 5 14:53:13 Problem Notes None recorded. Procedures Surgical History Date Name Laterality Status Provider Name and Address Organization Details Recorded Time 05/05/19 19 Date of Last Pap Smear completed [facility] 05/04/2018 15:40:35 02/15/19 09 Cholecystectomy completed [facility] 05/04/2018 15:49:50 02/15/19 06 Tonsillectomy completed [facility] 05/04/2018 15:50:02 Imaging Results Imaging Date Name Status LastModified by Organization Details LastModified Time 03/16/2019 MRI, brain + brain stem, w/wo contrast completed [facility] Information not available 03/20/2019 13:48:57 03/15/2019 CT, brain, w/o contrast completed [facility] I nformation not available 03/20/2019 13:48:57 03/22/2019 electroencephalogram completed [facility] Info rmation not available 03/31/2019 12:41:43 04/05/2019 XR, chest, 2 view completed [facility] (Imaging) [address], [place], [address], 04/07/2019 17:21:31 04/06/2019 complete PFT w/ post bronchodilator spirometry* completed [facility] [address] [facility], [place], [address], 04/20/2019 14:56:11 Procedure Notes None recorded. Medical Equipment None Reported. Allergies No known drug allergies Medications Name Sig Start Date Stop Date Status Note LastModified by Organization Details LastModified Time albuterol sulfate 2.5 mg/3 mL (0.083 %) solution for nebulizatio n USE 3 ML IN NEBULIZER DIRECTED 3 TIMES A DAY active Not Available Not Available No t Available loperamide 2 mg capsule 04/28 completed Not Available Not Available Not Available azithromyci n 250 mg tablet TAKE 2 TABLETS BY MOUTH TODAY, THEN TAKE 1 TABLET DAILY FOR 4 DAYS active Not Available Not Available No t Available tramadol 37.5 mg-acetamin ophen 325 mg tablet TAKE 2 TABLETS BY MOUTH TWICE A DAY NEEDED FOR 5 DAYS active Not Available Not Available No t Available fluconazole 150 mg tablet 03/30 completed Not Available Not Available Not Available hydrocodone 5 mg-acetamin ophen 325 mg tablet 03/30 completed Not Available Not Available Not Available ondansetron HCl 8 mg tablet Take 1 tablet every 8 hours by oral route as needed for 2 days. 04/28 completed Not Available Not Available Not Available metronidazo le 0.75 % (37.5 mg/5 gram) vaginal gel Insert 1 applicato rful every day by vaginal route at bedtime for 5 days. 03/30 completed Not Available Not Available Not Available prednisone 20 mg tablet Take 1 tablet every day by oral route. active Not Available Not Available No t Available Flonase 50 mcg/actuati on nasal spray,suspe nsion Inhale 1 spray every day by intranasa l route as needed for 30 days. 04/28 completed Not Available Not Available Not Available metronidazo le 500 mg tablet Take 1 tablet every 8 hours by oral route after meals for 5 days. 04/28 completed Not Available Not Available Not Available acetaminoph en 300 mg-codeine 30 mg tablet Take 1 tablet every 6 hours by oral route. active Not Available Not Available No t Available ciprofloxac in 500 mg tablet Take 1 tablet every 12 hours by oral route with meals for 5 days. 03/30 completed Not Available Not Available Not Available aspirin 81 mg tablet,mari yed release Take 1 tablet every day by oral route. 03/30 completed Not Available Not Available Not Available tramadol 50 mg tablet Take 1 tablet twice a day by oral route as needed for 5 days. 2019 active Not Available Not Available Not Avai lable lamotrigine 25 mg tablet 04/28 completed Not Available Not Available Not Available Vitamin tablet Take 1 tablet every day by oral route as directed for 90 days. 03/30 completed Not Available Not Available Not Available lorazepam 0.5 mg tablet 03/30 completed Not Available Not Available Not Available Imodium A-D 2 mg tablet Take 2 tablets every 6 hours by oral route as needed for 2 days. 04/28 completed Not Available Not Available Not Available Questran 4 gram oral powder Take 1 scoop twice a day by oral route as needed for 5 days. 05/03 completed Not Available Not Available Not Available cyanocobala min (vit B-12) 1,000 mcg/mL injection solution Inject 1 mL every month by intramusc ular route. 03/30 completed Not Available Not Available Not Available progesteron e micronized 200 mg capsule Take 1 capsule twice a day by oral route. 03/30 completed Not Available Not Available Not Available folic acid 1 mg tablet Take 4 tablets every day by oral route. 03/30 completed Not Available Not Available Not Available montelukast 10 mg tablet TAKE 1 TABLET BY MOUTH EVERY DAY AROUND THE CLOCK active Not Available Not Available No t Available ibuprofen 600 mg tablet 03/30 completed Not Available Not Available Not Available methylpredn isolone 4 mg tablets in a dose pack TAKE 6 TABLETS ON DAY 1 DIRECTED ON PACKAGE AND DECREASE BY 1 TAB EACH DAY FOR A TOTAL OF 6 DAYS active Not Available Not Available No t Available albuterol sulfate HFA 90 mcg/actuati on aerosol inhaler INHALE 2 PUFFS BY MOUTH EVERY 4 HOURS NEEDED (30 DAY SUPPLY) active Not Available Not Available No t Available ondansetron 4 mg disintegrat ing tablet Take 1 tablet every 4-6 hours by oral route. 03/30 completed Not Available Not Available Not Available doxycycline hyclate 100 mg tablet 03/30 completed Not Available Not Available Not Available Augmentin 500 mg-125 mg tablet Take 1 tablet every 12 hours by oral route with meals for 7 days. 04/28 completed Not Available Not Available Not Available Adderall 10 mg tablet Take 1 tablet twice a day by oral route. 04/28 completed Not Available Not Available Not Available Amphetamine Salt Combo 10 mg tablet 04/28 completed Not Available Not Available Not Available aripiprazol e 10 mg tablet Take 1 tablet every day by oral route in the morning. 04/28 completed Not Available Not Available Not Available Vitamin D3 25 mcg (1,000 unit) tablet 04/28 completed Not Available Not Available Not Available aripiprazol e 5 mg tablet Take 1 tablet every day by oral route in the evening. 04/28 completed Not Available Not Available Not Available nitrofurant oin monohydrate /macrocryst als 100 mg capsule 03/30 completed Not Available Not Available Not Available amoxicillin 03/30 completed Not Available Not Available Not Available Fish Oil 340 mg-1,000 mg capsule 04/28 completed Not Available Not Available Not Available Calcium with Vitamin D3 600 mg (carbonate) -10 mcg (400 unit) capsule Take 1 capsule twice a day by oral route. 03/30 completed Not Available Not Available Not Available Fluvirin (PF) 45 mcg (15 mcg x 3)/0.5 mL IM syringe 04/28 completed Not Available Not Available Not Available fluticasone 113 mcg-salmete rol 14 mcg/actuati on breath activated powdr Inhale 1 puff every day by inhalatio n route as directed for 30 days. 2019 active Not Available Not Available Not Avai lable Fluzone Quad (PF) 60 mcg (15 mcg x 4)/0.5 mL IM syringe active Not Available Not Available N ot Available Flucelvax Quad (PF) 60 mcg (15 mcg x 4)/0.5 mL IM syringe PHARMACIS T ADMINISTE RED IMMUNIZAT ION ADMINISTE RED AT TIME OF DISPENSIN G active Not Available Not Available No t Available Vitals Date Recorded Body height Body mass index (BMI) Body weight Body temperature Oxygen saturation Oxygen saturation in Arterial blood by Pulse oximetry Heart rate Systolic blood pressure Diastolic blood pressure Provider Name and Address Organization Details Last Updated DateTime 0 154.94 cm 25.2 kg/m2 53462.2 2 g 97.8 [degF] 100 % 100 % 69 /min 90 mm[Hg] 62 mm[Hg] Stephon Baltazar MA [facility] 0 11:19:41 Date Recorded Body height Body mass index (BMI) Body weight Body temperature Oxygen saturation Oxygen saturation in Arterial blood by Pulse oximetry Heart rate Systolic blood pressure Diastolic blood pressure Provider Name and Address Organization Details Last Updated DateTime 0 154.94 cm 27.2 kg/m2 41341.3 g 98.2 [degF] 98 % 98 % 82 /min 104 mm[Hg] 56 mm[Hg] Stephon Baltazar MA [facility] 0 12:53:16 Social History Question Answer Notes LastModified by Organizat ion Details LastModified Time Tobacco Smoking Status Never Smoker Preeti Bell MA [facility], [facility] 03/02/2014 14:33:52 Do You Have An Advance Directive? No Information not available 05/04/2018 What Is Your Level Of Alcohol Consumption? None Information not available 05/04/2018 If You Are , What Was Your Level Of Alcohol Consumption Prior To ? None Information not available 05/04/2018 Is Blood Transfusion Acceptable In An Emergency? Yes Information not available 05/04/2018 What Is Your Level Of Caffeine Consumption? Heavy Soda Information not available 05/04/2018 Live With Cats/exposure To Cat Litter No Information not available 05/04/2018 How Much Tobacco Do You Chew? None Information not available 05/04/2018 What Type Of Diet Are You Following? REGULAR Information not available 05/04/2018 Which Illicit Or Recreational Drugs Have You Used? 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 With Others Information not available 05/04/2018 Marital Status Single Informatio n not available 05/04/2018 What Was The Date Of Your Most Recent Tobacco Screening? 05/04/2018 Information not available 09/08/2018 How Many Children Do You Have? 1 Information not available 05/04/2018 Are There Any Occupational Health Risks Where You Work? None Information not available 05/04/2018 Seat Belts Used Routinely Yes Information not available 05/04/2018 Are You Sexually Active? Yes Information not available 05/04/2018 Do You Have Smoke And Carbon Monoxide Detectors In Your Home? Yes Information not available 05/04/2018 Are You Passively Exposed To Smoke? No Information no t available 05/04/2018 How Much Tobacco Do You Smoke? No Information not available 05/04/2018 Smoking Pre- No Information not available 05/04/2018 General Stress Level Medium Information not available 05/04/2018 Do You Use Sunscreen Routinely? No Information not available 05/04/2018 Supplements None Information n ot available 05/04/2018 Has Tobacco Cessation Counseling Been Provided? No Information not available 05/04/2018 How Many Years Have You Smoked Tobacco? 0 Information not available 05/04/2018 Sex: Unknown Functional Status Question Answer Note LastModified by Organization D etails LastModified Time What is your exercise level? None Information not available 05/04/2018 Mental Status None recorded. Family History Relationship Description Onset Age of this Age Resolved Age Notes LastModified by Organization Details LastModified Time Father No current problems or disability [email or web address] Not available 04/16 15:43:56 Mother No current problems or disability mwasserman Not available 04/16 15:43:56 Medical History Condition Response Anxiety Disorder Y Blood Transfusions N Breast Cancer N Acid Reflux (GERD) Y Cancer N Abuse/Domestic Violence N Kidney or Bladder Problems Y Depression Y Blood Clots N Asthma N Breast Problem N Anemia N Anesthesia Complications N Gynecological History Statement/Question Response Date of LMP 10/04/2019 On BCP's at Conception? N STIs/STDs N HPV Vaccine N Age at Menarche 17 Current Control Method Age at First Child 25 Sexually Active? Y Menses Monthly N Date of Last Pap Smear 05/04/2018 Sexual Problems? N LMP Unknown Desired Control Method Unknown Obstetrics History GPAL:G 2 P 0 1 0 1 Type Value Multiple Births 0 Full Term 0 Induced 0 Spontaneous 0 Premature 1 Living 1 Ectopics 0 Total 2 Immunizations Vaccine Type Date Status Note Provider Nam e and Address Organization Details Recorded Time Influenza, split virus, quadrivalent, preservative 9 completed Stephon Baltazar [place], [place] [facility] 03/30/2019 10:10:10 COVID-19, mRNA, LNP-S, PF, 30 mcg/0.3 mL dose 1 completed Domenic Louie [place], [place] [facility] 08/09/2020 16:40:53 COVID-19, mRNA, LNP-S, PF, 30 mcg/0.3 mL dose 1 completed Domen[place] Lou[place] [facility] 08/09/2020 16:41:15 Influenza, split virus, quadrivalent, preservative 4 completed Preeti Bell [place], [place] [facility] 03/02/2014 14:35:27 Past Encounters Encounter ID Performer Location Encounter Start Date Encounter Closed Date Diagnosis/Indication Diagnosis SNOMED-CT Code Diagnosis ICD10 Code Diagnosis Note [id number] HAIDER Rothman (Adult Med) [address] [place] [address] 03/02/2014 14:04:33 03/02/2014 14:57:27 Cyst of scalp 796061003 Recurrent acute sinusitis 653674259 [id number] Ciarra Betancourt is [place] (Adult Med) [address] [place] [address] 04/18/2015 16:24:30 04/19/2015 17:17:55 Diarrhea 36308384 R19.7 Acute vomiting 11284388 R11.10 [id number] MD Dana Oliveira (Adult Med) [address] [place] [id number] 01/10/2018 12:47:08 01/10/2018 16:06:19 Multiple somatic complaints 773958876 R68.89 Family his tory of diabetes mellitus type 2 042565173 Z83.3 [id number] MD Dana Oliveira (Adult Med) [address] [place] [id number] 04/28/2018 09:28:56 04/29/2018 09:11:08 Viral gastroenteritis caused by Crary-like agent 48104764 A08.11 liquid diet, advance diet as tolerated. Willing to go back to work on 05-05-2018 , and will be re-evaluat ed before then. Go to ER again if symptomes worsening any time ahe agreed. [id number] Walker Cortez (PRIMARY SCHOOL PRINCIPAL) [address] [place] [id number] 05/04/2018 14:49:13 05/04/2018 16:24:20 Routine care 449330986 Z34.90 Subchorionic hematoma 60 2888274 O41.8X99 Past pregn bertrand history of premature delivery 798747267 Z87.51 [id number] Walker Cortez (PRIMARY SCHOOL PRINCIPAL) [address] [place] [id number] 05/24/2018 11:30:00 05/24/2018 18:12:12 [id number] MD Dana Oliveira (Adult Med) [address] [place] [id number] 03/30/2019 09:16:16 03/30/2019 10:54:59 Dyspnea at rest 133823108 R06.00 Discussed with patient, she wants to be checked regarding dyspnea, [id number] MD Dana Oliveira (Adult Med) [address] [place] [id number] 04/12/2019 10:51:41 04/14/2019 15:44:43 Asthma 972507784 J45.909 dISCUSSED WITH PATIENT. [id number] MD Dana Oliveira (Adult Med) [address] [place] [id number] 10/17/2019 09:09:18 10/19/2019 12:47:38 Suspected COVID-19 025881746 Z03.818 Will test today. Asthma 968987332 J45.90 9 dISCUSSED WITH PATIENT. [id number] Melvin Barrios MD [facility] (Adult Med) [address] [place] [id number] 11/08/2019 12:08:29 11/09/2019 10:32:30 Pain in right hip joint 3881832864 20011 M25.551 Discussed with patient, these medication s just for short term usage, not for [facility] , some restrictio n applied accordingl y. she agreed and ad understood . She wants to refill prednisolo n and tramadol. [id number] MD Dana Oliveira (Adult Med) [address] [place] [id number] 01/19/2020 08:07:18 01/22/2020 11:05:00 Acute upper respiratory infection 43649854 J06.9 [id number] Melvin Barrios MD [facility] (Adult Med) [address] [place] [id number] 02/12/2020 15:07:27 02/13/2020 15:28:20 Suspected COVID-19 109356423 Z03.818 Will test today., off intil 02-24-2020 Health Concerns Section Related Observation LastModified by Organization Detai ls LastModified Time None Recorded Concern Status LastModified by Organization Details LastModified Time None Recorded Advance Directives Directive N: Payers Encounter Date Sequence Insurance Name Policy Number Policy Torres Covered Member ID Torres Member ID Guarantor Name 04/12/2019 1 [facility] - DOS PRIOR TO 2020 (MEDICAID REPLACEMENT - HMO) Echo Lam [id number] Echo [place] 10/17/2019 1 *SELF PAY* [place] 11/08/2019 1 *SELF PAY* [place] 01/19/2020 1 *SELF PAY* Na felipa [place] 01/19/2020 1 [employer] (POS) [id number] [facility] [id number] [facility] 02/12/2020 1 [employer] (POS) [id number] [facility] [id number] [facility] Notes Date Note Type Note Provider Name and Address Organization Details Recorded Time 04/12/2019 text/html reviewed the PFT report, seems asthmatic, NKDA. Father is here. Melvin Barrios MD Attn: [address] [place], [address], [facility] 04/14/2019 16:10:14 10/17/2019 text/html This is phone visit, due tp johnson virus pandemic, she understood and agreed, in fact her daughter and her brother lenard got Covid-19 tested , results pending, also she has chills , sick feeling and diarrhea for few days,, NKDA. wanting sick leave pending the test of covid -19 and refills of her medications for her asthma and willing to try antibiotics . Off until 10-22-2019. Melvin Barrios MD Attn: [employer] [place], [address], [place] [facility] 10/17/2019 16:22:40 01/19/2020 text/html This is phone visit, due to coronavirus pandemic, in fact she was told to be negative for covid-19 test today, but still sick with both ears pain, willing to try empirical antibiotics and go back to regular work on 01-24-2020.NKDA. Melvin Barrios MD Attn: Accounting[address] [place], [address], [place] [facility] 01/19/2020 12:42:10 02/12/2020 text/html This is phone visit, she understood and agreed, she was set home from work yesterday due to fever, also her co-worker has positive covid-19 test. C/C eye warering, sore throat, headache tongue feeling rhianna, and body aching, will test at [facility] today and off until and empirical antibiotics., NKDA. Melvin Barrios MD Attn: Account[address] [place], [address], [place] [facility] 02/12/2020 15:48:44 OBGyn Episode Ob Episode Information Episode Created Date Number of Fetuses Patient Bloodtype Patient rh Status Prepregnancy Weight lbs Domestic Partner Domestic Partner Phone Father Name Network Designer Status 05/05/19 19 1 O Positive 124 OPEN Fetus Data First Name Last Name Admitted to NICU Weight (g) Sex Living Outcome Pediatric Complications Fetus ID Race Codes Race Delivery Type [id number] Problems Problem Notes Problem Name Start Date End Date Resolution Snomed Code Not e 5,10-Methylenetetrahydrofola te reductase deficiency 05/13/2018 [id number] Bacterial vaginosis 05/08/2018 [id number] Patrick Calculation Initial Patrick Date Initial Exam Date Initial Exam Provider Initial Ultrasound Date Last Menstrual Period Date Ultra Sound Weeks Gestation 12/18/2018 05/04/2018 [facility] 05/02/2018 03/13/2018 8 Eighteen To Twenty Week Patrick Update Ultra Sound Date Fundal Height At Umbil Quickening Date Ultra Sound Latest Weeks Gestation Final Patrick Confirmed By Final Patrick Confirmed Date Final Patrick Date Ultra Sound Latest Days Gestation 05/03/19 19 8 [facility] 05/04/2018 019 1 Pre-lit Flowsheet Flowsheet Date 05/04/2018 Hall Score Blood Edema Fundus Height Fundus Units Glucose Ketones Leukocytes Nitrite Labor Signs Protein Cervic Dilation Cervic Effacement Cervic Station neg none 7 wks none negative none neg Type Weight in lbs Pre/Post Dialysis Refused With clothes 124.768266488075 BP Diastolic BP Location Tested BP Systolic BP Type 70 110 sitting Fetus Heart Rate Present Fetus Movement A No Comments h/o threatened miscarriage a nd pre-term delivery Flowsheet Date 05/24/2018 Hall Score Blood Edema Fundus Height Fundus Units Glucose Ketones Leukocytes Nitrite Labor Signs Protein Cervic Dilation Cervic Effacement Cervic Station Type Weight in lbs Pre/Post Dialysis Refused BP Diastolic BP Location Tested BP Systolic BP Type Fetus Heart Rate Present Fetus Movement Comments Flowsheet Date 03/30/2019 Hall Score Blood Edema Fundus Height Fundus Units Glucose Ketones Leukocytes Nitrite Labor Signs Protein Cervic Dilation Cervic Effacement Cervic Station Type Weight in lbs Pre/Post Dialysis Refused Weight 131.520774675601 BP Diastolic BP Location Tested BP Systolic BP Type 66 L arm 104 sitting Fetus Heart Rate Present Fetus Movement Comments Flowsheet Date 04/12/2019 Hall Score Blood Edema Fundus Height Fundus Units Glucose Ketones Leukocytes Nitrite Labor Signs Protein Cervic Dilation Cervic Effacement Cervic Station Type Weight in lbs Pre/Post Dialysis Refused With clothes 133.898113927266 BP Diastolic BP Location Tested BP Systolic BP Type 62 L arm 90 sitting Fetus Heart Rate Present Fetus Movement Comments Flowsheet Date 10/17/2019 Hall Score Blood Edema Fundus Height Fundus Units Glucose Ketones Leukocytes Nitrite Labor Signs Protein Cervic Dilation Cervic Effacement Cervic Station Type Weight in lbs Pre/Post Dialysis Refused BP Diastolic BP Location Tested BP Systolic BP Type Fetus Heart Rate Present Fetus Movement Comments Flowsheet Date 11/08/2019 Hall Score Blood Edema Fundus Height Fundus Units Glucose Ketones Leukocytes Nitrite Labor Signs Protein Cervic Dilation Cervic Effacement Cervic Station Type Weight in lbs Pre/Post Dialysis Refused With clothes 144.93480287413 BP Diastolic BP Location Tested BP Systolic BP Type 56 R arm 104 sitting Fetus Heart Rate Present Fetus Movement Comments Flowsheet Date 01/19/2020 Hall Score Blood Edema Fundus Height Fundus Units Glucose Ketones Leukocytes Nitrite Labor Signs Protein Cervic Dilation Cervic Effacement Cervic Station Type Weight in lbs Pre/Post Dialysis Refused BP Diastolic BP Location Tested BP Systolic BP Type Fetus Heart Rate Present Fetus Movement Comments Flowsheet Date 02/12/2020 Hall Score Blood Edema Fundus Height Fundus Units Glucose Ketones Leukocytes Nitrite Labor Signs Protein Cervic Dilation Cervic Effacement Cervic Station Type Weight in lbs Pre/Post Dialysis Refused BP Diastolic BP Location Tested BP Systolic BP Type Fetus Heart Rate Present Fetus Movement Comments Menstrual History Last Menstrual Date Menses Monthly On Bcp Conception Prior Menses Frequency Hcg Plus Date Menarche Onset Age 0103/13/2018 false Genetic Screening And Infection History Question Response Note Patient's Age Will Be 35 Years Or Older At Estim ated Date of Delivery false Thalassemia (Niuean, Marshallese, Mediterranean, Or Background): MCV < 80 false Neural Tube Defect (Meningomyelocele, Spina Bifi da, Or Anencephaly) false Congenital Heart Defect false Down Syndrome false Kameron-Sachs (eg, Anabaptism, Cajun, Estonian-Coamo) f alse Darren Disease false Sickle Cell Disease Or Trait () false Hemophilia Or Other Blood Disorders false Muscular Dystrophy false Cystic Fibrosis false [place]'s Ch[place] false Mental Retardation/Autism false If Yes, Was Person Tested For Fragile X? false Other Inherited Genetic Or Chromosomal Disorder false Maternal Metabolic Disorder (eg, Type 1 Diabetes , PKU) false Patient Or Baby's Father Had A Child With Defects Not Listed Above false Recurrent Loss, Or A Stillbirth false Medications (including Suppl ements, Vitamins, Herbs, OTC Drugs), Illicit/Recreational Drugs, Alcohol false If Yes, Agent(s) And Strength/Dosage false Any Other Genetic History false Live With Someone With TB Or Exposed To TB false Patient Or Partner Has History Of Genital Herpes false Rash Or Viral Illness Since Last Menstrual Perio d false History Of STD, Gonorrhea, Chlamydia, HPV, Syphi lis false Other Infection History false History of HIV false History of Hepatitis false Prior GBS-infected child false Delivery Information Delivery Date Delivery Type Labor Anesthesia Weeks Gestation Incision Type Labor Labor Length Hrs Delivered By Post Complications Tubal Sterilization Discharge Date Comments Discharge Information Feeding Method Contraceptive Method Maternal HG B and HCT Levels Ob Episode Information Episode Created Date Number of Fetuses Patient Bloodtype Patient rh Status Prepregnancy Weight lbs Domestic Partner Domestic Partner Phone Father Name Network Designer Status 05/05/19 19 1 DELETED Fetus Data First Name Last Name Admitted to NICU Weight (g) Sex Living Outcome Pediatric Complications Fetus ID Race Codes Race Delivery Type [id number] Patrick Calculation Initial Patrick Date Initial Exam Date Initial Exam Provider Initial Ultrasound Date Last Menstrual Period Date Ultra Sound Weeks Gestation 12/18/2018 05/04/2018 05/02/2018 7 Eighteen To Twenty Week Patrick Update Ultra Sound Date Fundal Height At Umbil Quickening Date Ultra Sound Latest Weeks Gestation Final Patrick Confirmed By Final Patrick Confirmed Date Final Patrick Date Ultra Sound Latest Days Gestation 05/03/19 19 7 12/19/19 19 1 Menstrual History Last Menstrual Date Menses Monthly On Bcp Conception Prior Menses Frequency Hcg Plus Date Menarche Onset Age Delivery Information Delivery Date Delivery Type Labor Anesthesia Weeks Gestation Incision Type Labor Labor Length Hrs Delivered By Post Complications Tubal Sterilization Discharge Date Comments 7.3 Discharge Information Feeding Method Contraceptive Method Maternal HG B and HCT Levels Ob Episode Information Episode Created Date Number of Fetuses Patient Bloodtype Patient rh Status Prepregnancy Weight lbs Domestic Partner Domestic Partner Phone Father Name Network Designer Status 05/05/19 19 1 CLOSED Fetus Data First Name Last Name Admitted to NICU Weight (g) Sex Living Outcome Pediatric Complications Fetus ID Race Codes Race Delivery Type [id number] F Prematur e [id number] Vaginal Patrick Calculation Initial Patrick Date Initial Exam Date Initial Exam Provider Initial Ultrasound Date Last Menstrual Period Date Ultra Sound Weeks Gestation 0 Eighteen To Twenty Week Patrick Update Ultra Sound Date Fundal Height At Umbil Quickening Date Ultra Sound Latest Weeks Gestation Final Patrick Confirmed By Final Patrick Confirmed Date Final Patrick Date Ultra Sound Latest Days Gestation 0 0 Menstrual History Last Menstrual Date Menses Monthly On Bcp Conception Prior Menses Frequency Hcg Plus Date Menarche Onset Age Delivery Information Delivery Date Delivery Type Labor Anesthesia Weeks Gestation Incision Type Labor Labor Length Hrs Delivered By Post Complications Tubal Sterilization Discharge Date Comments 6 Regional- idural 36.6 13.5 Discharge Information Feeding Method Contraceptive Method Maternal HG B and HCT Levels
--- OUTSIDE RECORDS SUMMARY | 2024-04-10 19:24 | XMS_ITS | Clinical Summary ---
Author Organization [facility] Address [address], [address] [address] Phone Care Team Providers Care Floor Attendant Name Role Phone Melvin Barrios MD Primary Care Provider [phone] Allergies No known active allergies Medications FOLIC ACID PO Take 2 Tabs by mouth 2 times daily. Active CRANBERRY PO Take 1 Tab by mouth daily. Active Probiotic Product (PROBIOTIC PO) Take 1 Tab by mouth daily. Active Family History Medical History Relation Name Comments Hypertension Father Dementia Maternal Grandfather Relation Name Status Comments Father Alive Maternal Grandfather Mother Alive Social History Tobacco Use Types Packs/Day Years Used Date Smoking Tobacco: Never Smokeless Tobacco: Never Alcohol Use Standard Drinks/Week Comments Never 0 (1 standard drink = 0.6 oz pur e alcohol) AUDIT-C Answer Date Recorded Frequency of Alcohol Consumption Never 09/22/2018 Average Number of Drinks Not on file 019 Frequency of Binge Drinking Not on file 09/2018 Comments Unknown Sex and Gender Information Value Date Recorded Sex Assigned at Not on file Legal Sex Female 7:52 AM CDT Gender Identity Not on file Sexual Orientation Not on file Occupation Industry Job Start Date Job End Date [employer] Not on file Not on file Not on file Last Filed Vital Signs Vital Sign Reading Time Taken Comments Blood Pressure 114/83 10/06/2018 10:10 AM CDT Pulse 67 10/06/2018 10:10 AM CDT Temperature 36 C (96.8 F) 10/06/2018 10:10 AM CDT Respiratory Rate 16 10/06/2018 10:10 AM CDT Oxygen Saturation 100% 10/06/2018 10:10 AM CDT Inhaled Oxygen Concentration - - Weight 59 kg (130 lb) 10/10/2018 11:00 AM CDT Height 152.4 cm (5') 10/10/2018 11:00 AM CDT Body Mass Index 25.39 10/10/2018 11:00 AM CDT Plan of Treatment Health Maintenance Due Date Last Done Comments Hepatitis C Virus (HCV) Screening 1982 TdaP Immunization 1982 Hepatitis B Immunization (1 of 3 - 19+ 3-dose series) 2001 Pap Smear 2003 Cervical Cancer Screening (CCS) 01/08/2012 HPV/Cotest 01/08/2012 Discussion re Starting/Frequency of Mammograms 2022 Influenza Immunization (#1) 10/17/202310/17, 11/29/2018, 10/30/2014, Additional history exists SARS-COV-2 Immunization ( season) 2023 01/27/2021, 06/11/2020, 05/21/2020 Respiratory Syncytial Virus (RSV) Immunization (Adult) (1 - 1-dose 75+ series) 2057 Meningococcal Immunization (ACWY) Aged Out No longer eligible based on patient's age to complete this topic Pneumococcal Immunization Combined Aged Out No longer eligible based on patient's age to complete this topic Rotavirus Immunization Aged Out No lo nger eligible based on patient's age to complete this topic Insurance MEDICAID [facility] Care Teams Floor Attendant Relationship Specialty Start Date End Date Melvin Barrios MD [address] [place] [address] PCP - General Geriatric Medicine 10/06/18
--- OUTSIDE RECORDS SUMMARY | 2024-04-10 19:24 | XMS_ITS | Data Portability ---
Author Organization [place] - [facility] [employer], Main Office Address [address] [place] [address] Assessment No assessment recorded. Plan of Treatment Reminders Order Date Submit Date Provider Last Modified By Organization Details Last Modified Time Details Appointments None recorded. Lab vitamin B12 + folate, serum or blood 2022 023 [facility], [address], [place], [address], 3 08:54:46 TSH + free T4, serum 2022 023 [facility], [address], [place], [address], 3 08:54:48 T3, free, serum or plasma 2022 023 [facility], [address], [place], [address], 3 08:54:47 CMP, serum or plasma 2022 023 [facility], [address], [place], [address], 3 08:54:43 aldolase, serum 2022 023 [facility], [address], [place], [address], 3 08:54:49 CK (creatine kinase), total, serum [address] [facility], [address], [place], [address], 3 08:54:44 VESNA (antinuclea r antibodies) panel, serum [address] [facility], [address], [place], [address], 3 08:54:46 rf (rheumatoid factor) + anti-ccp abs, serum [address] [facility], [address], [place], [address], 3 08:54:45 ESR (erythrocyt e sedimentati on rate), blood [address] [facility], [address], [place], [address], 3 15:16:22 CRP, high sensitivity , serum or plasma 2022 [address] [facility], [address], [place], [address], 3 08:54:49 Referral None recorded. Procedures None recorded. Surgeries None recorded. Imaging MRI, brain, w/wo contrast [address] [facility] (Imaging), [address], [address], 3 11:10:43 Medication Orders cyanocobala min (vit B-12) 1,000 mcg/mL injection solution 2022 023 [facility], [address], [place], [address], 3 15:15:05 Patient TargetsNo targets recorded. Patient InstructionsNo instructions recorded. Reason for Referral None Reported. Results Created Date Observation Date Name Description Value Unit Range Abnormal Flag Note LastModifiedBy Organization Detail LastModifiedTime 01/22/20 22 01/22/2022 T3, FREE T3, free 3.0 pg/mL 2.3-4. 2 normal Not Available [address], [address], 01/22/2022 18:52:43 01/22/20 22 01/22/2022 TSH TSH 0.56 mIU/L normal Refer ence Range > or = 20 Years 0.40- 4.50 Pregn bertrand Range s First trime ster 0.26- 2.66 Secon d trime ster 0.55- 2.73 Third trime ster 0.43- 2.91 Not Available [address], [address], 01/22/2022 18:52:42 01/22/20 22 01/22/2022 T4, FREE T4, free 1.0 NG/dL 0.8-1. 8 normal Not Available [address], [address], 01/22/2022 18:52:42 01/22/20 22 01/22/2022 THYRO ID PEROX IDASE ANTIB ODIES thyroid peroxidase antibodies <1 IU/mL <9 normal Not Available [address], [address], 01/22/2022 18:52:41 01/22/20 22 01/22/2022 COMPR EHENS PRABHU METAB OLIC PANEL potassium 4.4 mmol/ L 3.5-5. 3 normal Not Available [address], [address], 01/22/2022 18:52:41 01/22/20 22 01/22/2022 COMPR EHENS PRABHU METAB OLIC PANEL glucose 95 mg/dL 65-99 normal Fasti ng refer ence inter yulisa Not Available [address], [address], 01/22/2022 18:52:41 01/22/20 22 01/22/2022 COMPR EHENS PRABHU METAB OLIC PANEL urea nitrogen (BUN) 11 mg/dL 7-25 normal Not Available [address], [address], 01/22/2022 18:52:41 01/22/20 22 01/22/2022 COMPR EHENS PRABHU METAB OLIC PANEL creatinine 0.61 mg/dL 0.50-0 .99 normal Not Available [address], [address], 01/22/2022 18:52:41 01/22/20 22 01/22/2022 COMPR EHENS PRABHU METAB OLIC PANEL eGFR 116 mL/mi n/1.7 3m2 > or = 60 normal The eGFR is based on the CKD-E PI 2020 equat ion. To calcu late the new eGFR from a previ ous Creat inine or Cysta tin C resul t, go to https ://karolyn w.messi ryan.o vadim/lianne lizarraga s/ kdoqi /gfr% 5Fcal culat or Not Available [address], [address], 01/22/2022 18:52:41 01/22/20 22 01/22/2022 COMPR EHENS PRABHU METAB OLIC PANEL BUN/creatini ne ratio not applic able (calc ) 6-22 Not Available [address], [address], 01/22/2022 18:52:41 01/22/20 22 01/22/2022 COMPR EHENS PRABHU METAB OLIC PANEL sodium 137 mmol/ L 135-14 6 normal Not Available [address], [address], 01/22/2022 18:52:41 01/22/20 22 01/22/2022 COMPR EHENS PRABHU METAB OLIC PANEL chloride 106 mmol/ L 98-110 normal Not Available [address], [address], 01/22/2022 18:52:41 01/22/20 22 01/22/2022 COMPR EHENS PRABHU METAB OLIC PANEL carbon dioxide 25 mmol/ L 20-32 normal Not Available [address], [address], 01/22/2022 18:52:41 01/22/20 22 01/22/2022 COMPR EHENS PRABHU METAB OLIC PANEL calcium 9.5 mg/dL 8.6-10 .2 normal Not Available [address], [address], 01/22/2022 18:52:41 01/22/20 22 01/22/2022 COMPR EHENS PRABHU METAB OLIC PANEL protein, total 6.9 g/dL 6.1-8. 1 normal Not Available [address], [address], 01/22/2022 18:52:41 01/22/20 22 01/22/2022 COMPR EHENS PRABHU METAB OLIC PANEL albumin 4.3 g/dL 3.6-5. 1 normal Not Available [address], [address], 01/22/2022 18:52:41 01/22/20 22 01/22/2022 COMPR EHENS PRABHU METAB OLIC PANEL globulin 2.6 g/dL_ (calc ) 1.9-3. 7 normal Not Available [address], [address], 01/22/2022 18:52:41 01/22/20 22 01/22/2022 COMPR EHENS PRABHU METAB OLIC PANEL albumin/glob ulin ratio 1.7 (calc ) 1.0-2. 5 normal Not Available [address] [place], [address], 01/22/2022 18:52:41 01/22/20 22 01/22/2022 COMPR EHENS PRABHU METAB OLIC PANEL bilirubin, total 0.2 mg/dL 0.2-1. 2 normal Not Available [address], [address], 01/22/2022 18:52:41 01/22/20 22 01/22/2022 COMPR EHENS PRABHU METAB OLIC PANEL alkaline phosphatase 71 U/L 31-125 normal Not Available [address], [address], 01/22/2022 18:52:41 01/22/20 22 01/22/2022 COMPR EHENS PRABHU METAB OLIC PANEL AST 17 U/L 10-30 normal Not Available [address], [address], 01/22/2022 18:52:41 01/22/20 22 01/22/2022 COMPR EHENS PRABHU METAB OLIC PANEL ALT 18 U/L 6-29 normal Not Available [address], [address], 01/22/2022 18:52:41 05/08/19 23 05/08/2022 COMPR EHENS PRABHU METAB OLIC PANEL glucose 85 mg/dL 65-99 normal Fasti ng refer ence inter yulisa Not Available [address], [address], 05/08/2022 17:45:26 05/08/19 23 05/08/2022 COMPR EHENS PRABHU METAB OLIC PANEL urea nitrogen (BUN) 11 mg/dL 7-25 normal Not Available [address], [address], 05/08/2022 17:45:26 05/08/19 23 05/08/2022 COMPR EHENS PRABHU METAB OLIC PANEL creatinine 0.49 mg/dL 0.50-0 .99 low Not Available [address], [address], 05/08/2022 17:45:26 05/08/19 23 05/08/2022 COMPR EHENS PRABHU METAB OLIC PANEL eGFR 122 mL/mi n/1.7 3m2 > or = 60 normal The eGFR is based on the CKD-E PI 2020 equat ion. To calcu late the new eGFR from a previ ous Creat inine or Cysta tin C resul t, go to https ://karolyn yip.messi ryan.jose alfredo fierro/lianne lizarraga s/ kdoqi /gfr% 5Fcal culat or Not Available [address], [address], 05/08/2022 17:45:26 05/08/19 23 05/08/2022 COMPR EHENS PRABHU METAB OLIC PANEL BUN/creatini ne ratio 22 (calc ) 6-22 normal Not Available [address], [address], 05/08/2022 17:45:26 05/08/19 23 05/08/2022 COMPR EHENS PRABHU METAB OLIC PANEL sodium 139 mmol/ L 135-14 6 normal Not Available [facility] [address], [address], 05/08/2022 17:45:26 05/08/19 23 05/08/2022 COMPR EHENS PRABHU METAB OLIC PANEL potassium 4.3 mmol/ L 3.5-5. 3 normal Not Available [facility] [address], [address], 05/08/2022 17:45:26 05/08/19 23 05/08/2022 COMPR EHENS PRABHU METAB OLIC PANEL chloride 107 mmol/ L 98-110 normal Not Available [facility] [address], [address], 05/08/2022 17:45:26 05/08/19 23 05/08/2022 COMPR EHENS PRABHU METAB OLIC PANEL carbon dioxide 26 mmol/ L 20-32 normal Not Available [address], [address], 05/08/2022 17:45:26 05/08/19 23 05/08/2022 COMPR EHENS PRABHU METAB OLIC PANEL calcium 9.3 mg/dL 8.6-10 .2 normal Not Available [address], [address], 05/08/2022 17:45:26 05/08/19 23 05/08/2022 COMPR EHENS PRABHU METAB OLIC PANEL protein, total 6.6 g/dL 6.1-8. 1 normal Not Available [address], [address], 05/08/2022 17:45:26 05/08/19 23 05/08/2022 COMPR EHENS PRABHU METAB OLIC PANEL albumin 4.3 g/dL 3.6-5. 1 normal Not Available [address], [address], 05/08/2022 17:45:26 05/08/19 23 05/08/2022 COMPR EHENS PRABHU METAB OLIC PANEL globulin 2.3 g/dL_ (calc ) 1.9-3. 7 normal Not Available [address], [address], 05/08/2022 17:45:26 05/08/19 23 05/08/2022 COMPR EHENS PRABHU METAB OLIC PANEL albumin/glob ulin ratio 1.9 (calc ) 1.0-2. 5 normal Not Available [address], [address], 05/08/2022 17:45:26 05/08/19 23 05/08/2022 COMPR EHENS PRABHU METAB OLIC PANEL bilirubin, total 0.2 mg/dL 0.2-1. 2 normal Not Available [address], [address], 05/08/2022 17:45:26 05/08/19 23 05/08/2022 COMPR EHENS PRABHU METAB OLIC PANEL alkaline phosphatase 61 U/L 31-125 normal Not Available [address] [address] [place], [address], 05/08/2022 17:45:26 05/08/19 23 05/08/2022 COMPR EHENS PRABHU METAB OLIC PANEL AST 14 U/L 10-30 normal Not Available [address], [address], 05/08/2022 17:45:26 05/08/19 23 05/08/2022 COMPR EHENS PRABHU METAB OLIC PANEL ALT 16 U/L 6-29 normal Not Available [address], [address], 05/08/2022 17:45:26 05/08/19 23 05/08/2022 THYRO ID PEROX IDASE AND THYRO GLOBU ASYA ANTIB ODIES thyroglobuli n antibodies <1 IU/mL < or = 1 normal Not Available [address], [address], 05/08/2022 17:45:27 05/08/1905/08/2022 THYRO ID PEROX IDASE AND THYRO GLOBU ASYA ANTIB ODIES thyroid peroxidase antibodies <1 IU/mL <9 normal Not Available [address], [address], 05/08/2022 17:45:27 05/08/19 23 05/08/2022 T4, FREE T4, free 1.2 NG/dL 0.8-1. 8 normal Not Available [address], [address], 05/08/2022 17:45:28 05/08/19 23 05/08/2022 TSH TSH 0.01 mIU/L low Refer ence Range > or = 20 Years 0.40- 4.50 Pregn bertrand Range s First trime ster 0.26- 2.66 Secon d trime ster 0.55- 2.73 Third trime ster 0.43- 2.91 Not Available [address], [address], 05/08/2022 17:45:28 05/08/19 23 05/08/2022 T3, FREE T3, free 3.9 pg/mL 2.3-4. 2 normal Not Available [address], [address], 05/08/2022 17:45:29 06/26/19 23 07/08/2022 COMPR EHENS PRABHU METAB OLIC PANEL glucose 90 mg/dL 65-99 normal Fasti ng refer ence inter yulisa Not Available [address], [address], 07/08/2022 08:54:43 06/26/19 23 07/08/2022 COMPR EHENS PRABHU METAB OLIC PANEL urea nitrogen (BUN) 12 mg/dL 7-25 normal Not Available [address], [address], 07/08/2022 08:54:43 06/26/1907/08/2022 COMPR EHENS PRABHU METAB OLIC PANEL creatinine 0.64 mg/dL 0.50-0 .99 normal Not Available [address], [address], 07/08/2022 08:54:43 06/26/19 23 07/08/2022 COMPR EHENS PRABHU METAB OLIC PANEL eGFR 115 mL/mi n/1.7 3m2 > or = 60 normal The eGFR is based on the CKD-E PI 2020 equat ion. To calcu late the new eGFR from a previ ous Creat inine or Cysta tin C resul t, go to https ://karolyn fierro/lianne mayfieldal s/ kdoqi /gfr% 5Fcal culat or Not Available [address] [address] [place], [address], 07/08/2022 08:54:43 06/26/19 23 07/08/2022 COMPR EHENS PRABHU METAB OLIC PANEL BUN/creatini ne ratio NOT APPLIC ABLE (calc ) 6-22 Not Available [address], [address], 07/08/2022 08:54:43 06/26/19 23 07/08/2022 COMPR EHENS PRABHU METAB OLIC PANEL sodium 137 mmol/ L 135-14 6 normal Not Available [address], [address], 07/08/2022 08:54:43 06/26/19 23 07/08/2022 COMPR EHENS PRABHU METAB OLIC PANEL potassium 4.3 mmol/ L 3.5-5. 3 normal Not Available [address], [address], 07/08/2022 08:54:43 06/26/19 23 07/08/2022 COMPR EHENS PRABHU METAB OLIC PANEL chloride 103 mmol/ L 98-110 normal Not Available [facility] [address], [address], 07/08/2022 08:54:43 06/26/19 23 07/08/2022 COMPR EHENS PRABHU METAB OLIC PANEL carbon dioxide 25 mmol/ L 20-32 normal Not Available [address], [address], 07/08/2022 08:54:43 06/26/19 23 07/08/2022 COMPR EHENS PRABHU METAB OLIC PANEL calcium 9.3 mg/dL 8.6-10 .2 normal Not Available [address], [address], 07/08/2022 08:54:43 06/26/19 23 07/08/2022 COMPR EHENS PRABHU METAB OLIC PANEL protein, total 6.7 g/dL 6.1-8. 1 normal Not Available [address], [address], 07/08/2022 08:54:43 06/26/19 23 07/08/2022 COMPR EHENS PRABHU METAB OLIC PANEL albumin 4.4 g/dL 3.6-5. 1 normal Not Available [address], [address], 07/08/2022 08:54:43 06/26/19 23 07/08/2022 COMPR EHENS PRABHU METAB OLIC PANEL globulin 2.3 g/dL_ (calc ) 1.9-3. 7 normal Not Available [address], [address], 07/08/2022 08:54:43 06/26/19 23 07/08/2022 COMPR EHENS PRABHU METAB OLIC PANEL albumin/glob ulin ratio 1.9 (calc ) 1.0-2. 5 normal Not Available [address], [address], 07/08/2022 08:54:43 06/26/19 23 07/08/2022 COMPR EHENS PRABHU METAB OLIC PANEL bilirubin, total 0.5 mg/dL 0.2-1. 2 normal Not Available [address], [address], 07/08/2022 08:54:43 06/26/19 23 07/08/2022 COMPR EHENS PRABHU METAB OLIC PANEL alkaline phosphatase 75 U/L 31-125 normal Not Available [address], [address], 07/08/2022 08:54:43 06/26/19 23 07/08/2022 COMPR EHENS PRABHU METAB OLIC PANEL AST 16 U/L 10-30 normal Not Available [address], [address], 07/08/2022 08:54:43 06/26/19 23 07/08/2022 COMPR EHENS PRABHU METAB OLIC PANEL ALT 15 U/L 6-29 normal Not Available [address], [address], 07/08/2022 08:54:43 06/26/19 23 07/08/2022 CREAT INE KINAS E, TOTAL creatine kinase, total 47 U/L 29-143 normal Not Available [address], [address], 07/08/2022 08:54:44 06/26/19 23 07/08/2022 SED RATE BY MODIF IED WESTE RGREN sed rate by modified westergren 11 mm/h < or = 20 normal Not Available [address], [address], 07/08/2022 08:54:45 06/26/19 23 07/08/2022 RHEUM ATOID ARTHR ITIS DIAGN OSTIC PANEL 1 rheumatoid factor 34 IU/mL <14 high Not Available [address], [address], 07/08/2022 08:54:45 06/26/19 23 07/08/2022 RHEUM ATOID ARTHR ITIS DIAGN OSTIC PANEL 1 cyclic citrullinate d peptide (ccp) Ab (IgG) <16 units normal Refer ence Range Negat prabhu: <20 Weak Posit prabhu: 20-39 Moder ate Posit prabhu: 40-59 Stron g Posit prabhu: >59 Not Available [address] [place], [address], 07/08/2022 08:54:45 06/26/1907/08/2022 RHEUM ATOID ARTHR ITIS DIAGN OSTIC PANEL 1 interpretati on Consi stent with rheum atoid arthr itis in a patie nt with polya rthri tis. Posit prabhu RF and negat prabhu anti- CCP, howev er, are more commo nly found in patie nts with other rheum atic disea ses such as syste norma lupus eryth emato asad, scler oderm a, prima ry Sjogr en's syndr ome, mixed conne ctive tissu e disea se, polym yosit is/de rmato myosi tis and cryog lobul inemi a. These test resul ts may also be found in 5-6% of healt hy older indiv idual s. Not Available [facility] [address] [address] [place], [address], 07/08/2022 08:54:45 06/26/1907/08/2022 ANACH OICE( R) PANEL 1 WITH REFLE XES anachoice(R) screen NEGATI VE negati ve A negat prabhu ANAch oice( TM) indic ates the absen ce of detec table antib odies to compo nent armen holger consi sting of dsDNA , Chrom atin, VOICE WRITING REPORTER, Sm/RN P, Sm, SSA, SSB, Stephanie-1, Centr omere B, Scl-7 0 and Ribos omal P. A negat prabhu ANAch oice( TM) shoul d be inter prete d in the ruby xt of the clini maia and labor atory findi ngs, and does not rule out autoi mmune disea se alfonso cteri zed by other autoa ntibo dy speci ficit ies inclu ding autoi mmune hepat itis and prima ry bilia ry cirrh osis. For addit ional infor maira elizabeth e refer to http: //cierra holloway.Que stDia gnost ics.c om/fa q/FAQ 177 (This link is being provi ded for infor matio n/edu catio nal purpo ses only. ) Not Available [address], [address], 07/08/2022 08:54:46 06/26/19 23 07/08/2022 ANACH OICE( R) PANEL 1 WITH REFLE XES rheumatoid factor 35 IU/mL <14 high Not Available [facility] [address], [address], 07/08/2022 08:54:46 06/26/19 23 07/08/2022 ANACH OICE( R) PANEL 1 WITH REFLE XES DNA Ab (ds) crithidia,if a NEGATI VE negati ve Not Available [address], [address], 07/08/2022 08:54:46 06/26/19 23 07/08/2022 ANACH OICE( R) PANEL 1 WITH REFLE XES sm antibody <1.0 NEG ai <1.0 negati ve Not Available [address], [address], 07/08/2022 08:54:46 06/26/19 23 07/08/2022 ANACH OICE( R) PANEL 1 WITH REFLE XES sm/under trimmer antibody <1.0 NEG ai <1.0 negati ve Not Available [address], [address], 07/08/2022 08:54:46 06/26/19 23 07/08/2022 ANACH OICE( R) PANEL 1 WITH REFLE XES sjogren's antibody (ss-A) <1.0 NEG ai <1.0 negati ve Not Available [facility] [address], [address], 07/08/2022 08:54:46 06/26/19 23 07/08/2022 ANACH OICE( R) PANEL 1 WITH REFLE XES sjogren's antibody (ss-B) <1.0 NEG ai <1.0 negati ve Not Available [address], [address], 07/08/2022 08:54:46 06/26/19 23 07/08/2022 ANACH OICE( R) PANEL 1 WITH REFLE XES scl-70 antibody <1.0 NEG ai <1.0 negati ve Not Available [address], [address], 07/08/2022 08:54:46 06/26/1907/08/2022 VITAM IN B12/F OLATE , SERUM PANEL vitamin B12 >2000 pg/mL 200-11 00 high Not Available [address], [address], 07/08/2022 08:54:46 06/26/19 23 07/08/2022 VITAM IN B12/F OLATE , SERUM PANEL folate, serum 9.2 NG/mL normal Refer ence Range Low: <3.4 Borde rline : 3.4-5 .4 [place] l: >5.4 Not Available [address], [address], 07/08/2022 08:54:46 06/26/1907/08/2022 T3, FREE T3, free 3.6 pg/mL 2.3-4. 2 normal Not Available [address], [address], 07/08/2022 08:54:47 06/26/1907/08/2022 TSH+F REE T4 TSH 0.01 mIU/L low Refer ence Range > or = 20 Years 0.40- 4.50 Pregn bertrand Range s First trime ster 0.26- 2.66 Secon d trime ster 0.55- 2.73 Third trime ster 0.43- 2.91 Not Available [address] [place], [address], 07/08/2022 08:54:48 06/26/1907/08/2022 TSH+F REE T4 T4, free 1.2 NG/dL 0.8-1. 8 normal Not Available [facility] [address] [place], [address], 07/08/2022 08:54:48 06/26/1907/08/2022 ALDOL ASE aldolase 3.6 U/L < or = 8.1 normal Not Available [facility] [address] [place], [address], 07/08/2022 08:54:49 06/26/1907/08/2022 CARDI O IQ(R) HS CRP hs CRP 7.8 mg/L <1.0 high The AHA/C DC Guide lines recom mend hs-CR P range s for ident ifyin g Relat prabhu Cardi ovasc ular Risk in patie nts ages >17 years : <1.0 mg/L Lower Relat prabhu Cardi ovasc ular Risk; 1.0-3 .0 mg/L [place] Relat prabhu Cardi ovasc ular Risk; 3.1-1 0.0 mg/L Highe r Relat prabhu Cardi ovasc ular Risk. For patie nts with highe r cardi ovasc ular risk, consi shayy retes ting in 1-2 weeks to exclu de a benig n trans ient eleva tion secon n[place] to infec tion or infla mmati on from the basel ine CRP value . Persi stent eleva tions of >10.0 mg/L upon retes ting may be assoc iated with infec tion and infla mmati on. The AHA/C DC recom menda tions are based on Pears on TA et al. Circu latio n. 2003; 107:4 99-51 1. For ages >17 Years : hs-CR P mg/L Risk Accor ding to AHA/C DC Guide lines <1.0 Lower relat prabhu cardi ovasc ular risk. 1.0-3 .0 [place] relat prabhu cardi ovasc ular risk. 3.1-1 0.0 Highe r relat prabhu cardi ovasc ular risk. Consi shayy retes ting in 1 to 2 weeks to exclu de a benig n trans ient eleva tion in the basel ine CRP value secon [place] to infec tion or infla mmati on. >10.0 Persi stent eleva tion, upon retes ting, may be assoc iated with infec tion and infla mmati on. Not Available [address] [place], [address], 07/08/2022 08:54:49 10/28/1910/28/2022 COMPR EHENS PRABHU METAB OLIC PANEL glucose 87 mg/dL 65-99 normal Fasti ng refer ence inter yulisa Not Available [address], [address], 10/28/2022 03:11:25 10/28/1910/28/2022 COMPR EHENS PRABHU METAB OLIC PANEL urea nitrogen (BUN) 12 mg/dL 7-25 normal Not Available [address], [address], 10/28/2022 03:11:25 10/28/1910/28/2022 COMPR EHENS PRABHU METAB OLIC PANEL creatinine 0.56 mg/dL 0.50-0 .99 normal Not Available [address], [address], 10/28/2022 03:11:25 10/28/1910/28/2022 COMPR EHENS PRABHU METAB OLIC PANEL eGFR 118 mL/mi n/1.7 3m2 > or = 60 normal Not Available [facility] [address], [address], 10/28/2022 03:11:25 10/28/1910/28/2022 COMPR EHENS PRABHU METAB OLIC PANEL BUN/creatini ne ratio SEE NOTE: (calc ) 6-22 Not Repor orquidea: BUN and Creat inine are withi n refer ence range . Not Available [address], [address], 10/28/2022 03:11:25 10/28/19 23 10/28/2022 COMPR EHENS PRABHU METAB OLIC PANEL sodium 137 mmol/ L 135-14 6 normal Not Available [address], [address], 10/28/2022 03:11:25 10/28/1910/28/2022 COMPR EHENS PRABHU METAB OLIC PANEL potassium 4.7 mmol/ L 3.5-5. 3 normal Not Available [address], [address], 10/28/2022 03:11:25 10/28/19 23 10/28/2022 COMPR EHENS PRABHU METAB OLIC PANEL chloride 105 mmol/ L 98-110 normal Not Available [address], [address], 10/28/2022 03:11:25 10/28/19 23 10/28/2022 COMPR EHENS PRABHU METAB OLIC PANEL carbon dioxide 27 mmol/ L 20-32 normal Not Available [address], [address], 10/28/2022 03:11:25 10/28/19 23 10/28/2022 COMPR EHENS PRABHU METAB OLIC PANEL calcium 9.3 mg/dL 8.6-10 .2 normal Not Available [address], [address], 10/28/2022 03:11:25 10/28/19 23 10/28/2022 COMPR EHENS PRABHU METAB OLIC PANEL protein, total 6.7 g/dL 6.1-8. 1 normal Not Available [address], [address], 10/28/2022 03:11:25 10/28/1910/28/2022 COMPR EHENS PRABHU METAB OLIC PANEL albumin 4.2 g/dL 3.6-5. 1 normal Not Available [address], [address], 10/28/2022 03:11:25 10/28/1910/28/2022 COMPR EHENS PRABHU METAB OLIC PANEL globulin 2.5 g/dL_ (calc ) 1.9-3. 7 normal Not Available [address], [address], 10/28/2022 03:11:25 10/28/1910/28/2022 COMPR EHENS PRABHU METAB OLIC PANEL albumin/glob ulin ratio 1.7 (calc ) 1.0-2. 5 normal Not Available [address], [address], 10/28/2022 03:11:25 10/28/1910/28/2022 COMPR EHENS PRABHU METAB OLIC PANEL bilirubin, total 0.4 mg/dL 0.2-1. 2 normal Not Available [address], [address], 10/28/2022 03:11:25 10/28/1910/28/2022 COMPR EHENS PRABHU METAB OLIC PANEL alkaline phosphatase 82 U/L 31-125 normal Not Available [address], [address], 10/28/2022 03:11:25 10/28/1910/28/2022 COMPR EHENS PRABHU METAB OLIC PANEL AST 14 U/L 10-30 normal Not Available [address], [address], 10/28/2022 03:11:25 10/28/19 23 10/28/2022 COMPR EHENS PRABHU METAB OLIC PANEL ALT 14 U/L 6-29 normal Not Available [address], [address], 10/28/2022 03:11:25 10/28/19 23 10/28/2022 VITAM IN B12/F OLATE , SERUM PANEL vitamin B12 672 pg/mL 200-11 00 normal Not Available [address], [address], 10/28/2022 03:11:26 10/28/1910/28/2022 VITAM IN B12/F OLATE , SERUM PANEL folate, serum 11.3 NG/mL normal Refer ence Range Low: <3.4 Borde rline : 3.4-5 .4 [place] l: >5.4 Not Available [address], [address], 10/28/2022 03:11:26 10/28/19 23 10/28/2022 T3, FREE T3, free 3.8 pg/mL 2.3-4. 2 normal Not Available [address], [address], 10/28/2022 03:11:27 10/28/1910/28/2022 TSH+F REE T4 TSH 0.01 mIU/L low Refer ence Range > or = 20 Years 0.40- 4.50 Pregn bertrand Range s First trime ster 0.26- 2.66 [place] trime ster 0.55- 2.73 Third trime ster 0.43- 2.91 Not Available [address], [address], 10/28/2022 03:11:27 10/28/19 23 10/28/2022 TSH+F REE T4 T4, free 1.1 NG/dL 0.8-1. 8 normal Not Available [address], [place], [address], 10/28/2022 03:11:27 01/24/20 22 01/22/2022 US, thyro id No observ ation record ed. [id number] [facility] [address], [place], [address], 04/15/2022 06:02:08 08/21/19 23 08/20/2022 MRI, brain , w/wo contr ast No observ ation record ed. [email or web address] [facility] [address], [place], [address], 08/24/2022 14:14:28 Result Notes None recorded. Problems Name Problem SNOMED Code Status Onset Date Resolution Date Notes Provider Name and Address Organization Details Recorded Time Increased frequency of urination 883444091 Active Not Available [facility] 3 05:56:47 Dysmenorrhea 522449739 Active Not Available [facility] 3 05:56:47 Retention of urine 324484189 Active Not Available [facility] 3 05:56:47 Adnexal tenderness 627593831 Active Not Available [facility] 3 05:56:47 Blood in urine 70892885 Active Not Available [facility] 3 05:56:47 Dysphagia 26439551 Active 2021 Not Available [facility] 3 05:56:47 Hypothyroidis m 62451961 Active 2021 Not Available [facility] 3 05:56:47 Dysuria 55168730 Active Not Available [facility] 3 05:56:47 Pain of breast 12160991 Active Not Available [facility] 3 05:56:47 Female stress incontinence 61507972 Active Not Available [facility] 3 05:56:47 Vitamin B12 deficiency (non anemic) 21872960 Active 2022 Jacinta Gaol MD [address] [place] [address], [facility] [address], [place], [address] , [facility] 3 15:08:15 Fatigue 67308760 Active 2022 Jacinta Galo MD [address] [address], [place], [address] , [facility] 3 15:12:35 Muscle pain 87032311 Active 2022 Jacinta Galo MD [address], [address] [address], [place], [address] , [facility] 3 15:13:19 Focal motor weakness 692210637 Active 2022 Jacinta Galo MD [address], [address] [address], [place], [address] , [facility] 3 15:13:42 Problem Notes None recorded. Procedures Surgical History Date Name Laterality Status Provider Name and Address Organization Details Recorded Time Tubal Ligation completed Not Available [facility] 04/15/2022 05:52:58 Cholecystectomy completed Not Available [facility] 04/15/2022 05:52:58 Toe completed Not Available [facility] 02/2022 05:52:58 Tonsillectomy completed Not Available [facility] 04/15/2022 05:52:58 Imaging Results Imaging Date Name Status LastModified by Organiz ation Details LastModified Time 01/22/2022 US, thyroid completed [id number] [place] [address], [id number], 04/15/2022 06:02:08 08/20/2022 MRI, brain, w/wo contrast completed [id number] [address] [place] [address], [id number], 08/24/2022 14:14:28 Procedure Notes None recorded. Medical Equipment None Reported. Allergies No known drug allergies Medications Name Sig Start Date Stop Date Status Note LastModified by Organization Details LastModified Time flowflex covid-19 antigen home test kit active Not Available Not Available Not Available cyclobenzap rine 10 mg tablet active Not Available Not Available Not Available amoxicillin 500 mg capsule TAKE 1 CAPSULE BY MOUTH EVERY 8 HOURS active Not Available Not Available No t Available dextroamphe tamine-amph etamine 7.5 mg tablet TAKE 1 TABLET BY MOUTH TWICE DAILY. TAKE DOSES AT LEAST 4 TO 6 HOURS APART. 06/16 completed Not Available Not Available Not Available buspirone 5 mg tablet TAKE 1 TABLET BY MOUTH TWICE DAILY 01/01 completed Not Available Not Available Not Available benztropine 0.5 mg tablet TK 1 T PO QAM UTD active Not Available Not Available No t Available loperamide 2 mg capsule active Not Available Not Available Not Available azithromyci n 250 mg tablet TAKE 2 TABLETS BY MOUTH TODAY, THEN TAKE 1 TABLET DAILY FOR 4 DAYS active Not Available Not Available No t Available ibuprofen 800 mg tablet Take 1 tablet 3 times a day by oral route as needed. active Not Available Not Available No t Available fluconazole 150 mg tablet Take 1 tablet every day by oral route for 1 day. active Not Available Not Available No t Available tolterodine ER 4 mg capsule,ext ended release 24 hr Take 1 capsule every day by oral route for 90 days. 06/16 completed Not Available Not Available Not Available hydrocodone 5 mg-acetamin ophen 325 mg tablet TK 1 T PO Q 4 TO 6 H NEEDED FOR PAIN 12/25 completed Not Available Not Available Not Available ondansetron HCl 8 mg tablet active Not Available Not Available Not Available Adderall 5 mg tablet Take 1 tablet twice a day by oral route. 2013 active Not Available Not Available Not Avai lable meloxicam 15 mg tablet TAKE 1 TABLET BY MOUTH ONCE DAILY active Not Available Not Available No t Available carbamazepi ne ER 100 mg tablet,exte nded release,12 hr active Not Available Not Available Not Available ondansetron HCl 4 mg tablet TAKE 1 TABLET BY MOUTH EVERY 6 HOURS NEEDED FOR NAUSEA AND VOMITING 01/01 completed Not Available Not Available Not Available dextroamphe tamine-amph etamine 10 mg tablet TAKE 1 TABLET BY MOUTH TWICE DAILY . TAKE AT LEAST 4 TO 6 HOURS APART. active Not Available Not Available No t Available metronidazo le 500 mg tablet active Not Available Not Available Not Available ciprofloxac in 500 mg tablet Take 1 tablet every 12 hours by oral route for 10 days. active Not Available Not Available No t Available sulfamethox azole 800 mg-trimetho prim 160 mg tablet TAKE 1 TABLET BY MOUTH EVERY 12 HOURS UNTIL GONE 01/01 completed Not Available Not Available Not Available liothyronin e 5 mcg tablet Take one tablet once daily 2022 active Not Available Not Available Not Avai lable tramadol 50 mg tablet Take 1 tablet every 6 hours by oral route as needed. active Not Available Not Available No t Available zolmitripta n 5 mg tablet active Not Available Not Available Not Available lamotrigine 25 mg tablet active Not Available Not Available Not Available meloxicam 7.5 mg tablet 01/01 completed Not Available Not Available Not Available oxycodone-a cetaminophe n 5 mg-325 mg tablet TAKE 1 TABLET BY MOUTH EVERY 6 HOURS NEEDED FOR SEVERE PAIN ONLY AFTER SURGERY 01/01 completed Not Available Not Available Not Available amoxicillin 875 mg tablet TAKE 1 TABLET BY MOUTH TWICE A DAY NOW THEN 1 TAB TWICE DAILY UNTIL GONE 06/16 completed Not Available Not Available Not Available tamsulosin 0.4 mg capsule Take 1 capsule every day by oral route. active Not Available Not Available No t Available hydrocodone 7.5 mg-acetamin ophen 325 mg tablet TAKE 1 TABLET BY MOUTH EVERY 4 TO 6 HOURS NEEDED FOR PAIN 06/16 completed Not Available Not Available Not Available Unithroid 50 mcg tablet Take 1 tablet every day by oral route in the morning for 90 days. active Not Available Not Available No t Available cyanocobala min (vit B-12) 1,000 mcg/mL injection solution Inject 1 mL every week by subcutane ous route in the morning for 90 days. 2022 active Not Available Not Available Not Avai lable buspirone 10 mg tablet TAKE 1 TABLET BY MOUTH TWICE DAILY active Not Available Not Available No t Available dextroamphe tamine-amph etamine 15 mg tablet 01/01 completed Not Available Not Available Not Available fluoxetine 10 mg capsule 06/16 completed Not Available Not Available Not Available gabapentin 300 mg capsule TAKE 1 CAPSULE BY MOUTH EVERY DAY active Not Available Not Available No t Available omeprazole 20 mg capsule,del ayed release TAKE 1 CAPSULE BY MOUTH ONCE DAILY active Not Available Not Available No t Available insulin syringe U-100 with needle 0.3 mL 31 gauge x 06/30 active Not Available Not Available Not Available dextroamphe tamine-amph etamine ER 10 mg 24hr capsule,ext end release TAKE 1 CAPSULE BY MOUTH ONCE DAILY IN THE MORNING 06/16 completed Not Available Not Available Not Available insulin syringe U-100 with needle 1 mL 31 gauge x 06/30 USE TO INJECT B-12 SUBCUTANE OUSLY ONCE WEEKLY active Not Available Not Available No t Available norethindro ne acetate 1 mg-ethinyl estradiol 20 mcg tablet TAKE 1 TABLET BY MOUTH ONCE DAILY SKIPPING PLACEBO WEEK 01/01 completed Not Available Not Available Not Available metoprolol succinate ER 25 mg tablet,exte nded release 24 hr active Not Available Not Available Not Available levofloxaci n 750 mg tablet TAKE 1 TABLET BY MOUTH EVERY 24 HOURS UNTIL GONE 01/01 completed Not Available Not Available Not Available Unithroid 75 mcg tablet Take 1 tablet by mouth once daily 2022 active Not Available Not Available Not Avai lable Cipro 250 mg tablet Take 1 tablet every 12 hours by oral route for 5 days. 01/21 completed Not Available Not Available Not Available oxybutynin chloride 5 mg tablet Take 1 tablet twice a day by oral route for 30 days. active Not Available Not Available No t Available ondansetron 4 mg disintegrat ing tablet 01/01 completed Not Available Not Available Not Available fluticasone propionate 50 mcg/actuati on nasal spray,suspe nsion active Not Available Not Available Not Available naproxen 500 mg tablet 01/01 completed Not Available Not Available Not Available amoxicillin 500 mg-potassiu m clavulanate 125 mg tablet active Not Available Not Available Not Available Amphetamine Salt Combo 5 mg tablet active Not Available Not Available Not Available Amphetamine Salt Combo 10 mg tablet active Not Available Not Available Not Available escitalopra m 10 mg tablet TAKE 1 TABLET BY MOUTH ONCE DAILY 01/01 completed Not Available Not Available Not Available escitalopra m 20 mg tablet TAKE 1 TABLET BY MOUTH ONCE DAILY active Not Available Not Available No t Available aripiprazol e 10 mg tablet Take 1 tablet every day by oral route. 01/01 completed Not Available Not Available Not Available aripiprazol e 15 mg tablet TK 1 T PO QAM UTD 01/01 completed Not Available Not Available Not Available Vitamin D3 25 mcg (1,000 unit) tablet active Not Available Not Available Not Available aripiprazol e 5 mg tablet 01/01 completed Not Available Not Available Not Available Fish Oil 340 mg-1,000 mg capsule active Not Available Not Available Not Available Fluvirin 45 mcg (15 mcg x 3)/0.5 mL intramuscul ar suspension active Not Available Not Available N ot Available Azo Bladder Control 2015 active Not Available Not Available Not Avai lable Fluvirin (PF) 45 mcg (15 mcg x 3)/0.5 mL IM syringe active Not Available Not Available N ot Available Flowflex COVID-19 Antigen Home Test kit Use as Directed on the Package active Not Available Not Available No t Available Vitals Date Recorded Body mass index (BMI) Body height Oxygen saturation Oxygen saturation in Arterial blood by Pulse oximetry Heart rate Body temperature Body weight Systolic blood pressure Diastolic blood pressure Provider Name and Address Organization Details Last Updated DateTime 2 28 kg/m2 154.94 cm 98 % 98 % 84 /min 98 [degF] 67908.6 7 g 105 mm[Hg] 75 mm[Hg] Not Available [facility] 3 05:53:28 Date Recorded Oxygen saturation Oxygen saturation in Arterial blood by Pulse oximetry Heart rate Systolic blood pressure Diastolic blood pressure Provider Name and Address Organization Details Last Updated DateTime 2 99 % 99 % 88 /min 125 mm[Hg] 85 mm[Hg] Not Available [facility] 3 05:53:27 Date Recorded Body height Body mass index (BMI) Body weight Body temperature Heart rate Systolic blood pressure Diastolic blood pressure Provider Name and Address Organization Details Last Updated DateTime 3 154.94 cm 28.2 kg/m2 41263.2 6 g 97.7 [degF] 75 /min 114 mm[Hg] 73 mm[Hg] Claudette Bliss C[facility] 3 14:54:50 Social History Question Answer Notes LastModified by Organizat ion Details LastModified Time Tobacco Smoking Status Never Smoker Not Available [facility] 04/15/2022 05:52:26 What Is Your Level Of Alcohol Consumption? None [id number] Information not available 04/15/2022 What Is Your Level Of Caffeine Consumption? Heavy [id number] Information not available 04/15/2022 What Type Of Diet Are You Following? 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 Single [id number] Information not available 04/15/2022 Do You Have Any Dietary Restrictions? No [id number] Information not available 04/15/2022 Sex: Female Functional Status Question Answer Note LastModified by Organizat ion Details LastModified Time What is your exercise level? None [id number] Information not available 04/15/2022 Mental Status None recorded. Family History Relationship Description Onset Age of this Age Resolved Age Notes LastModified by Organization Details LastModified Time Father No current problems or disability [id number] Not available 04/15/2022 05:52:59 Mother No current problems or disability [id number] Not available 04/15/2022 05:52:59 Medical History Condition Response ADD/ADHD Y HEADACHES/MIGRAINES Y PTSD Y DEPRESSION (INCLUDING POST ) Y Gynecological HistoryNo gynecological history recorded. Obstetrics History GPAL:G 0 P 0 0 0 0 Past Encounters Encounter ID Performer Location Encounter Start Date Encounter Closed Date Diagnosis/Indication Diagnosis SNOMED-CT Code Diagnosis ICD10 Code Diagnosis Note [id number] [facility] [address] [place] [address] 01/01/2022 00:00:00 01/01/2022 15:31:36 [id number] [facility] [address] [place] [address] 02/12/2022 00:00:00 02/12/2022 18:10:41 [id number] Jacinta Galo MD [facility] [address] [place] [address] 06/16/2022 14:46:26 06/16/2022 15:18:27 Hypothyroidism 81361021 E03.9 TSH and FT4 in ideal range- continue unithroid to 75 mcg daily and liothyroni ne 5 mcg in afternoon. She was reminded to take her unithroid on empty stomach with glass of water and wait one hour to eat or have her coffee in morning and up to 4 hours if ever taking any heartburn or reflux medication s to help optimize absorption . Discussed paleo like diet with restrictio n of GMOs to help with energy and to optimize absorption of vitamins and minerals and reduce inflammati on. Vitamin B1 2 deficiency (non anemic) 12850079 E53.8 Trial on B12 injections once weekly as patient has continued fatigue and low levels. Fatigue 99249359 R53.83 Will send for thyroid antibodies to screen for autoimmune thyroid disease in addition to CBC, CMP, VESNA/ESR/Rh eumatoid workup along with B12/folate to screen for other potential secondary causes of fatigue. Muscle pain 27785049 M79 .10 Send for aldolase and CK to screen for myositis. Focal motor weakness 699 146989 R53.1 Send for MRI brain to assess for any white matter changes-pe r patient she has loss of function of right side along with pain /shooting pains on occasion- post covid. Hasn't had brain imaging in over 3 years. Spent up to 25 minutes preparing to see the patient (eg, review of tests), obtaining and/or reviewing separately obtained history, performing a medically appropriat e examinatio n and evaluation , counseling and educating the patient, ordering medication s, tests, along with documentin g clinical informatio n in the electronic health record, independen tly interpreti ng results and communicat ing results to the patient. RTC in 4-6 months. Patient was provided a handwritte n lab order which contains our fax number. If she chooses to go outside of the [facility] system to obtain labwork she was advised to provide our fax number and my informatio n to the lab she will be obtaining labwork from in order to have her labs properly forwarded over for me to review so there is no loss of follow up due to use of outside network. She was also advised to contact our clinic informing us that she has completed her labwork so we are aware we will need to reach out to the appropriat e laboratory to request her results be forwarded to us so I might have the ability to review and make further medical decision making in her case. She voiced understand ing. Health Concerns Section Related Observation LastModified by Organization Detai ls LastModified Time None Recorded Concern Status LastModified by Organization Details LastModified Time None Recorded Advance Directives Directive None Recorded Payers Encounter Date Sequence Insurance Name Policy Number Policy Torres Covered Member ID Torres Member ID Guarantor Name 06/16/2022 1 [facility] [id number] Echo Lam [id number] Echo R Genaro Notes Date Note Type Note Provider Name and Address Organization Details Recorded Time 06/16/2022 text/html 42 yo female com es in for follow up in management of hypothyroidism and continued fatigue. at last visit in Jan we increased unithroid to 75 mcg daily and added liothyronine 5 mcg in afternoon. She does have fatigue that is constant in nature. She is concerned about sleep apnea-she had an in home test completed and she will need to see a specialist and ended up with respiratory issues thought to be asthma. Since covid she has had more motor sensory changes affecting right side of her body. 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 She had testing completed in 2019 but did not find anything at that time. She will at times forget things. Cycles are overall normal. labs from 05/07/22:TSH of 0.01 uIU/mlFT4 of 1.2 ng/dLFT3 of 3.9 pg/MLTPO negglucose 85 mg/dLCr normalLFT normal Jacinta Galo MD [address] [address], [place], [address], [facility] [employer] [facility] 06/16/2022 15:21:57 OBGyn Episode No OBEpisode recorded.
--- OUTSIDE RECORDS SUMMARY | 2024-04-11 00:38 | XMS_ITS | Clinical Summary ---
Author Organization [facility] Address [address] [place] [address] Care Team Providers Care Night Monitor Name Role Phone Blayne Davidson MD Primary Care Provider [phone] Source Comments [facility],non-owned Affiliates and Associated Physician Practices is amultiple site organization consisting of ambulatory clinics and hospital sitesin [place], [place], [place] and [place]. This disclosure is being madepursuant to the Care Everywhere program and may not contain all information available regarding this patient. Last updated 17.[facility] Allergies No known active allergies Medications * [...] age to complete this topic Care Teams Night Monitor Relationship Specialty Start Date End Date Blayne Davidson MD [address] [place] [address] PCP - General Family Medicine 07/01/22
--- OUTSIDE RECORDS SUMMARY | 2024-04-11 00:38 | XMS_ITS | Clinical Summary ---
Author Organization [facility] Address [address] [place] [address] Care Team Providers Care Ground Crewman Name Role Phone None, Provider MD Primary [...] liothyronine (CYTOMEL) 5 MCG Tab daily. Active Friant 3-6-9 Cap 1 tablet. Active meloxicam (MOBIC) 15 MG tablet Take 1 tablet (15 mg total) by mouth daily. 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 Gender Identity Not on file Sexual Orientation Not on file Last Filed Vital Signs Vital Sign Reading Time Taken Comments Blood Pressure 115/69 04/12/2022 9:58 AM SIDEWALK REPAIRER Pulse 90 04/12/2022 9:58 AM SIDEWALK REPAIRER Temperature 36.9 C (98.5 F) 04/12/2022 9:58 AM SIDEWALK REPAIRER Respiratory Rate 18 04/12/2022 9:58 AM SIDEWALK REPAIRER Oxygen Saturation 100% 04/12/2022 9:58 AM SIDEWALK REPAIRER Inhaled Oxygen Concentration - - Weight 56.7 kg (125 lb) 04/12/2022 9:58 AM SIDEWALK REPAIRER Height 154.9 cm (5' 1 ) 04/12/2022 9:58 AM SIDEWALK REPAIRER Body Mass Index 23.62 04/12/2022 9:58 AM SIDEWALK REPAIRER Plan of Treatment Health Maintenance Due Date [...] Insurance [employer] Care Teams Ground Crewman Relationship Specialty Start Date End Date None, Provider, MD PCP - General UNKNOWN PHYSICIAN SPECIALTY 04/12/22
--- OUTSIDE RECORDS SUMMARY | 2024-04-11 00:38 | XMS_ITS | Clinical Summary ---
Author Organization [facility] Address [address], [address] [address] Phone Care Team Providers Care Paper Products Inspector Name Role Phone Melvin Barrios MD Primary Care Provider Allergies No known active allergies Medications FOLIC [...] age to complete this topic Insurance MEDICAID [employer] Care Teams Paper Products Inspector Relationship Specialty Start Date End Date Melvin Barrios MD [address] [place] [address] PCP - General Geriatric Medicine 10/06/18
--- OUTSIDE RECORDS SUMMARY | 2024-04-11 00:38 | XMS_ITS | Continuity of Care Document ---
Author Organization [facility] Address [address] [place] [address] [place] [address] Phone Care Team Providers Care Business Education Instructor Name Role Phone Roni Morris MD Unavailable Unavailable Advance Directives Directive Yes / No Effective Date File Name No Information Encounters Encounter Description Practice Location Reason(s) For Visit Diagnoses Date Provider Providers Copied on Encounter [facility], [address] [place], [id number], [place] tel:[phone] [facility] No Information Arturo Tamayo. [address] [place] [place], [place], [id number], [place]. tel:[phone] Family History Family Member Type Diagnosis Age [...]
--- OUTSIDE RECORDS SUMMARY | 2024-04-11 00:38 | XMS_ITS | Patient Health Summary ---
Author Organization [facility] Address [address] [place] [address] Care Team Providers Care Director Oncology Name Role Phone Blayne Davidson MD Primary Care Provider [phone] Note from [facility],non-owned Affiliates and Associated Physician Practices is amultiple site organization consisting of ambulatory clinics and hospital sitesin [place], [place], [place] and [place]. This disclosure is being madepursuant to the Care Everywhere program and may not contain all information available regarding this patient. Last updated 17.[facility] Allergies No known active allergies Medications * [...] x-ray. Report dictated by Contreras Rendon DO (sales consultant residential manager). I, Rinku Hughes MD have personally reviewed and interpreted this examination/study. > Interpreting Provider: Rinku Hughes MD on 06/22/2023 8:54 AM Narrative 06/22/2023 8:54 AM CDT PROCEDURE: XR WRIST LEFT 3VW OR MORE, DATE/TIME OF EXAM: 06/22/2023 8:50 AM, LOCATION [facility] INDICATION: M25.532: Wrist pain, acute, left ADDITIONAL [...] DATE/TIME OF EXAM: 06/22/2023 8:50 AM, LOCATION [facility] INDICATION: M25.532: Wrist pain, acute, left ADDITIONAL CLINICAL INFORMATION: Ordering Provider Reason For Exam: Technologist Note: Additional: COMPARISON: 01/12/2023 FINDINGS: The osseous structures are intact and well aligned without acutefracture or dislocation. The joint spaces are preserved. Bone density and texture are normal. No soft tissue swelling is present. IMPRESSION: Normal wrist x-ray. Report dictated by Contreras Rendon DO (sales consultant residential manager). Rinku Roberts MD have personally reviewed and [...] Normal. Report dictated by Willian Davis DO (sales consultant residential manager). Rinku Roberts MD have personally reviewed and interpreted this examination/study. > Interpreting Provider: Rinku Hughes MD on 10/06/2022 8:56 AM Narrative 10/06/2022 8:56 AM CDT PROCEDURE: XR HAND LEFT 3VW OR MORE, DATE/TIME OF EXAM: 10/06/2022 8:36 AM, LOCATION [facility] INDICATION: M25.532: Chronic pain of left wrist G89.29: Chronic pain of left wrist COMPARISON: None. FINDINGS: No fracture or dislocation is present. The joint spaces are normal. No erosions are seen. The soft tissues are normal. Procedure Note Rinku Hughes MD - 10/06/2022 PROCEDURE: XR HAND LEFT 3VW OR MORE, DATE/TIME OF EXAM: 10/06/2022 8:36 AM, LOCATION [facility] INDICATION: M25.532: Chronic pain of left wrist G89.29: Chronic pain of left wrist COMPARISON: None. FINDINGS: No fracture or dislocation is present. The joint spaces are normal. No erosions are seen. The soft tissues are normal. IMPRESSION: Normal. Report dictated by Willian Davis DO (sales consultant residential manager). I, Rinku Hughes MD have personally reviewed and interpreted this examination/study. > Interpreting Provider: Rinku Hughes MD on 10/06/2022 8:56 AM Radha Armijo PA-C DIAGNOSTIC IMAGING O RDERABLES * (ABNORMAL) RHEUMATOID FACTOR IGG/IGM/IGA AB (09/08/2022 12:06 PM CDT) Pathologist [facility] Rheumatoid Factor IgG <5 <=6 [facility] Rheumatoid Factor IgA <5 <=6 [facility] Rheumatoid Factor IgM 57(H) <=6 [facility] Comment: Test Performed at: [facility]/[address] ALLISON GUAJARDO MD,PHD Blood BLOOD SPECIMEN / Unknown 09/08/2022 12:06 PM CDT 09/08/2022 12:07 PM CDT Wild Miller MD LAB - SEROLOGY ORDER DARYL [facility] [address] [place] [address] * C-REACTIVE PROTEIN (09/08/2022 12:06 PM CDT) C-Reactive Protein 6.2 <8.0 mg/L [facility] Comment: Test Performed at: [facility] [address] [id number] SHAYNE BANKS MD Blood BLOOD SPECIMEN / Unknown 09/08/2022 12:06 PM CDT 09/08/2022 12:07 PM CDT Wild Miller MD LAB - CHEMISTRY MINNIE HARDY Performing Organization Address [facility] Co de Phone Number [facility] [phone] [place], [place] [phone] * CYCLIC CITRULLINATED PEPTIDE(CCP) AB IGG (09/08/2022 12:06 PM CDT) Pathologist [facility] Cyclic Citrullinated Peptide Antibody IgG <16 UNITS [facility] Comment: Reference Range Negative: <20 Weak Positive: 20-39 Moderate Positive: 40-59 Strong Positive: >59 Test Performed at: [facility] [address] [id number] SHAYNE BANKS MD Blood BLOOD SPECIMEN / Unknown 09/08/2022 12:06 PM CDT 09/08/2022 12:07 PM CDT Wild Miller MD LAB - CHEMISTRY MINNIE HARDY Performing Organization Address [facility] Co de Phone Number [facility] [phone] [place] [phone] * ERYTHROCYTE SEDIMENTATION RATE (09/08/2022 12:06 PM CDT) [facility] Erythrocyte Sedimentation Rate Westergren 9 < OR = 20 mm/h [facility] Comment: Test Performed at: [facility] [address] [id number] SHAYNE BANKS MD Blood BLOOD SPECIMEN / Unknown 09/08/2022 12:06 PM CDT 09/08/2022 12:07 PM CDT Wild Miller MD LAB - HEMATOLOGY MACHELLE TAN Performing Organization Address [facility] Co de Phone Number [facility] [address] [phone] Care Teams Director Oncology Relationship Specialty Start Date End Date Blayne Davidson MD [address] [place] [address] PCP - General Family Medicine 07/01/22
--- OUTSIDE RECORDS SUMMARY | 2024-04-11 00:38 | XMS_ITS | Referral Summary ---
Author Organization [facility] Address [address] [place] [address] Care Team Providers Care Special Educator Name Role Phone Blayne Davidson MD Primary Care Provider [phone] Source Comments [facility] [employer],non-owned Affiliates and Associated Physician Practices is amultiple site organization consisting of ambulatory clinics and hospital sitesin [place], [place], [place] and [place]. This disclosure is being madepursuant to the Care Everywhere program and may not contain all information available regarding this patient. Last updated 17.[facility] [employer] [facility] Allergies No known active allergies Medications * [...] of Treatment Not on file Care Teams Special Educator Relationship Specialty Start Date End Date Blayne Davidson MD [address] [place] [address] PCP - General Family Medicine 07/01/22
--- OUTSIDE RECORDS SUMMARY | 2024-04-11 00:39 | XMS_ITS | Patient Health Record ---
[facility] Organization [facility] Address [address] [place] [address] Care Team Providers Care Rn Utilization Management Um Name Role Phone Mercedez Mobley Primary Care Provider Reason For Referral No Information Medications Medication SIG (Take, Route, Frequency, Duration) Notes Start Date End Date Status PROzac 40 MG 1 capsule Orally jonah ry morning for 30 days 12/22/2017 Active Camby 3-6-9 - 1 tablet Orally once daily for 07 days Active Social History Tobacco Use: Social History Observation Description Date Details (start date - stop date) Never Smoker NA - NA Dont use, Tobacco Use/Smoking Question Answer Notes Are you a nonsmoker Additional Findings: Tobacco Non-User Current no n-smoker Problems Problem Type SNOMED Code ICD Code Onset Dates Problem Status W/U Status Risk Notes Problem 19602426 Mood disorder (F39) Active confirmed Problem 07240010 Depressive disorder (F32.9) Active confirmed Problem 209448334 Attention deficit disorder of adult (F90.0) Active confirmed Problem 780487071 Anxiety disorder, unspecified type (F41.9) Active confirmed Plan Of Treatment No Information Insurance Providers Payer Name Payer Address Payer Phone Subscriber Number Group Number Insured Name Patient Relationship to Insured Coverage Start Date Coverage End Date [facility] Att Claims Department [address] [place] [address] [id number] Rufino dotson Echo Self - patient is the insured 6 [employer] [place] [address] [id number] Echo Joy am Self - patient is the insured 8
== END 2024-04-11 00:13 | disposition left against medical advice (07) ==
PROVIDERS: Emergency Provider Emergency Medicine
DX: M79.605 Pain in left leg (principal)
CPT/HCPCS: 93971; 99199

== ENCOUNTER 2024-05-01 08:00 | Outpatient (RCR) | payer BC, OTHER, SELFPAY ==
--- NOTE | 2024-04-26 14:02 | OPREHPOC ---
Outpatient Therapy Plan of Care This is a Multidisciplinary Plan of Care that may contain components documented by all disciplines (PT, OT, and ST.) PT Problem 1 PT Problem #1 Knowledge Deficit PT Goal 1 Goal / Goal Update 1. Pt to be IND with issued HEP Target Visit 8 PT Problem 2 PT Problem #2 Pain PT Goal 1 Goal / Goal Update 1. Pt to report back pain no greater than 3/10 in the last week 2. Pt to report leg pain no greater than 3/10 in the last week Target Visit 8 PT Problem 3 PT Problem #3 Impaired Range of Motion PT Goal 1 Goal / Goal Update 1. Pt to increased passive thoracic mobility PT Problem 4 PT Problem #4 Impaired Functional Mobility PT Goal 1 Goal / Goal Update 1. Pt to demonstrates a functional lift and carry of 20lb from ground level without an increase in pain. Target Visit 8
--- NOTE | 2024-04-26 14:02 | PTOPEVAL1 ---
Assessment and note entered by Taryn Murray, PT, DPT Evaluation Information Assessment Status Evaluation Subjective Information Pt states she might have a blood clot in her foot and leg, she states her leg swells to where she cannot put a shoe on. States she is feeling extremes of hot and cold temperature. During evaluation, pt reports her leg is burning, about 30 seconds later reports her leg is ice cold. She states they have cleared her for a blood clot. Reports her pain started 04/11/24 without a known injury. States she works 10 hour days at [employer] and has been off work for a month d/t not being able to be on her feet for 10 hours. Has requested to have short term disability paperwork out. She states she wants to stay out of work as long as possible, until she is 100% better. Pt states she also has middle back pain, she states she might have a cyst in her back. States she gets pain that is 9/10 at its worst. Pt states she also has concerns of MS, she had an uncle who has MS, she plans to see a neurologist. She states her doctor says she has weakness on her L side, states at times she thinks she is having mild strokes. Reported Pain Level Pain Score 6,6: Self Report Assessment PT Clinical Summary Pt presents to therapy today for her initial evaluation. She reports L LE pain, upper back pain , and various other symptoms. She demonstrates LE ROM and strength that is functional and WNL. She does have an increase in pes planus during ambulation, recommended shoe inserts to wear during work. She demonstrates increased thoracic kyphosis and a forward head with decreased cervical ROM. Also demonstrates forward and rounded posture in sitting. Prone thoracic mobilization is tender. Skilled therapy services are indicated to improve ROM, body mechanics, posture awareness, and to decrease pain reports. Plan of Care Interventions Electrical Stimulation,Gait Training,Hot Pack/Cold Pack,Manual Therapy,Neuro Re-education,Patient/ Caregiver Education,Therapeutic Activities, Therapeutic Exercise PT Services Indicated Yes Treatment Frequency and 2x/wk for 8 visits Duration These treatments will address the objective and functional deficits as defined above. The patient will be advanced safely and appropriately in order for the patient to progress towards his/her prior level of function. Additional exercises will be introduced and as well as a comprehensive home exercise program upon discharge, if needed, ?to ensure carryover of functional gains achieved in the clinic. This treatment plan has been reviewed and agreement upon by the patient.
--- NOTE | 2024-04-28 12:48 | PCPTNOTE ---
Patient called and cancelled appointment due to not feeling well.
--- NOTE | 2024-05-03 12:27 | PCPTNOTE ---
Patient called and cancelled reporting she was ill and in too much pain.
--- NOTE | 2024-05-08 09:16 | PCPTNOTE ---
Patient called and cancelled this date with no reason given.
--- NOTE | 2024-05-10 09:55 | PCPTNOTE ---
Patient cancelled her appointment (same day cancel) with no reason given when asked. This is patient's 4th cancel since evaluation on 04/26.
--- NOTE | 2024-05-10 16:12 | PTOPDC ---
Assessment and note entered by Taryn Murray, PT, DPT Evaluation Information Assessment Status Discharge - Pt Not Present Subjective Information Pt called to cancel her appointment today. Pt has cancelled 4 of 6 scheduled appointment. Per the attendance policy pt will be discharged at this time. Pt called and notified of discharge. Assessment PT Clinical Summary Pt evaluated on 04/26/24 and completed one follow up appointment. Has cancelled 4 times since her evaluation two weeks ago.
== END 2024-05-10 16:22 | disposition home or self-care (01) ==
LOC: ANHGOSHPT 08:00
PROVIDERS: PCP Family Medicine; Visit Provider Family Medicine
DX: R60.0 Localized edema (principal); M54.6 Pain in thoracic spine
CPT/HCPCS: 97014; 97110; 97161; G0283

== ENCOUNTER 2024-05-29 08:13 | Emergency (ER) | payer OTHER, SELFPAY ==
--- NOTE | ~2024-05-29 | XR_ITS ---
HISTORY: fell 3 weeks ago, pain/LROM Lt shoulder COMPARISON: None TECHNIQUE: 2 views of the left shoulder were performed FINDINGS: No acute fracture. The glenohumeral and acromioclavicular joint space is maintained The visualized portion of the adjacent left lung is clear. The humeral head is well seated within the glenoid fossa. IMPRESSION: No acute fracture or anterior dislocation. Reviewed, dictated and finalized at location A.
[2024-05-29 08:24] VITALS: BP 114/79; PULSE 78; RESP 18; TEMP 36.3; O2SAT 100
--- NOTE | 2024-05-29 08:33 | ED_ITS ---
HPI - Extremity Injury (Upper) General Chief Complaint: Extremity Injury, Upper Stated Complaint: fall Source: patient Mode of arrival: ambulatory Limitations: no limitations History of Present Illness HPI narrative: 44 y/o female presented for c/o left shoulder pain x3 weeks following an injury. States she fell while intoxicated, and does not recall the exact events. Pt reports swelling and decreased ROM at the shoulder due to pain.Says she was seen at an outside UC and was told she has a 'spider fracture' in the left shoulder, but did not follow up. Denies pain radiating down the arm, numbness, tingling or weakness of the hand/arm, or deformity in the shoulder. Taking Motrin. Rates pain 10/25. Related Data Home Medications ?Medication ?Instructions ?Recorded ?Confirmed ?Last Taken ?Type cetirizine 10 mg tablet (Zyrtec) 10 mg PO DAILY PRN allergies 06/18/22 04/10/24 08/01/23 History fluticasone propionate 50 1 spray intranasal DAILY 06/18/22 04/10/24 08/01/23 History mcg/actuation nasal spray,suspension (Flonase Allergy Relief) riboflavin (vitamin B2) 400 mg 400 mg PO DAILY 11/10/22 04/10/24 12/29/23 Histor y tablet ferrous sulfate 325 mg (65 mg 325 mg PO DAILY 10/12/23 04/10/24 12/28/23 History iron) tablet Allergies Allergy/AdvReac Type Severity Reaction Status Date / Time No Known Allergies Allergy Verified 04/10/24 09:45 Review of Systems Review of Systems: CONSTITUTIONAL: Denies body aches, fever, chills CARDIOVASCULAR: Denies chest pain, palpitations, or edema. RESPIRATORY: Denies cough or dyspnea. GASTROINTESTINAL: Denies abdominal pain, nausea, vomiting, or diarrhea. SKIN: Denies rash, or wounds. MUSCULOSKELETAL: reports left shoulder pain NEUROLOGIC: Denies numbness, tingling, or weakness. All systems reviewed & are unremarkable except as noted in HPI and below PMFSH Past Medical History Medical History Pharyngitis BMI 32.0-32.9,adult Edema of left lower extremity Thoracic back pain Dysuria COVID-19 (~03/01/19) positive antibody test 04/30/2020. Positive COVID 01/31/2024. Otitis media Left lower quadrant abdominal pain Restless legs syndrome iron 106 with 32% saturation and ferritin 29 on 09/29/2023. Mixed hyperlipidemia (09/29/23) total cholesterol 232, triglycerides 145, HDL 58, LDL 147 with ratio 4.0 on 09/29/2023. Vitamin B12 deficiency Level normal at 12 152 with folic acid 6.7 and hemoglobin 13.6 on 09/29/2023. BMI 30.0-30.9,adult Obesity (BMI 30.0-34.9) Anal pain Hemorrhoids Fecal incontinence Hemiplegic migraine Migraine Left wrist pain Fatigue Cough Chest x-ray 08/13/2022 normal. Ganglion cyst of dorsum of left wrist Acute non-recurrent maxillary sinusitis Microcalcification of breast Hypersomnia (~2021) Home sleep study 03/10/2022 did not reveal TANGELA. Referral to truck and transport mechanic further testing. Hypothyroidism, unspecified (~12/2021) treated by frame builder, Dr. Galo 01/01/2022. TSH suppressed at 0.14, free T4 0.9, T3 total 101 on 09/29/2023. Abnormal thyroid screen (blood) Abnormal thyroid blood test Irregular periods Screening mammogram, encounter for Vaginal delivery 08/17/05 post hemorrhage Encounter for IUD removal 12/05/15 Mirena removal Encounter for IUD insertion 07/29/11 Mirena insertion Abnormal Pap smear of cervix ASCUS/ NEG HPV-2008 Nonunion of fracture of foot Chronic toe pain, left foot Overweight (BMI 25.0-29.9) Viral gastroenteritis Migraine without aura and without status migrainosus, not intractable (~03/2021) CT angiogram of the head and neck on 10/13/2022 was unremarkable. Pain and swelling of toe of left foot (02/09/21) crush injury 02/09/2021 left 5th toe . X-ray on 04/15/2021 reveals possible healing fractures of the proximal and distal phalanx BMI 28.0-28.9,adult Attention deficit hyperactivity disorder (ADHD), combined type, mild Caffeine abuse, continuous Patient stopped all caffeine. BMI 27.0-27.9,adult Mild intermittent asthma in adult without complication Seasonal allergic rhinitis Chronic anxiety Encounter for screening for other viral diseases Bipolar disorder DVT prophylaxis Blurry vision Neurological symptoms ADD (attention deficit disorder) Depression Kidney stones Surgical History Surgical History History of left salpingo-oophorectomy (12/30/23) Robotic assisted left salpingo oophorectomy History of orthopedic surgery left toe surgery flatbed ran over foot History of tubal ligation (12/05/14) History of cholecystectomy (~2009) Status post cystoscopy History of right salpingo-oophorectomy Status post tonsillectomy History of dilatation and curettage Family History Family History Father Hypertension Mother Breast cancer Social History Social History Smoking status: Never smoker Tobacco type: cigarettes Additional smoking assessment comments: 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 Gender identity (if verbalized by the patient): Female Sexual Orientation (if Verbalized by the Patient): Straight or Heterosexual Spiritual care concerns: No Agree to blood products: Yes Comments At time of signature, I have reviewed and agree with nursing past medical, surgical, social and family history unless otherwise noted. Please see nursing chart for further information. There is no relevant family history pertinent to the presenting complaint Exam Narrative: GENERAL: Well-appearing HEAD: Normocephalic, atraumatic. NECK: Supple. No VPT. Normal AROM. CHEST: Speaks in full sentences. No respiratory distress. HEART: Regular rate and rhythm. Normal and equal peripheral pulses. EXTREMITIES: LUE has normal strength and sensation, decreased range of motion at shoulder due to endorses pain with movement. Tender with any palpation around clavicle or trapezius, or deltoid. Guarding left shoulder. No edema or ecchymosis, No open wounds, or obvious deformity; alignment normal, pulse palpable and equal bilaterally, skin warm, dry, pink. Capillary refill less than 3 seconds. SKIN: Warm, dry, no rash. NEURO: Alert and oriented x3. PSYCH: Normal mood and affect Course Course Emergency Course: Patient is aware of diagnosis, understands and agrees to treatment plan. Anticipatory guidance given. Patient agrees to follow-up as directed and is aware of reasons to seek care at the emergency department. Portions of this record may have been created with voice recognition software Level of Care: Express Care Visit Vital Signs Vital signs: Vital Signs Temperature 97.4 F L 05/29/24 08:24 Pulse Rate 78 05/29/24 08:24 Respiratory Rate 18 05/29/24 08:24 Blood Pressure 114/79 05/29/24 08:24 Pulse Oximetry 100 05/29/24 08:24 Oxygen Delivery Room Air 05/29/24 08:24 Temperature 97.4 F L 05/29/24 08:24 Pulse Rate 78 05/29/24 08:24 Respiratory Rate 18 05/29/24 08:24 Blood Pressure 114/79 05/29/24 08:24 Pulse Oximetry 100 05/29/24 08:24 Oxygen Delivery Room Air 05/29/24 08:24 Reviewed MDM - Extremity Injury (Upper) MDM Narrative Medical decision making narrative: Discussed physical exam findings and xray. Advised supportive measures and signs/symptoms to go to the ER. Pt is appropriate for outpt treatment and f/u with ortho. Differential Diagnosis Differential diagnosis: Likely other (Shoulder dislocation, clavicle fracture, humerus fracture, scapular fracture, acromioclavicular joint injury, rotator cuff tear, bicep tendon rupture, tricep tendon rupture, cervical radiculopathy) Imaging Data Radiologist's impression: Patient: Echo Lam : 1980 MR#: [id number] Age: 44 Acct:[id number] Loc: [facility] ADM Date: 05/29/24Attending Dr: Ordering Physician: Aida Rosenberg APRN Date of Service: 05/29/24 Procedure(s): XR shoulder LT min 2V Accession Number(s): [id number] cc: Aida Rosenberg APRN; Blayne Davidson MD~ HISTORY: fell 3 weeks ago, pain/LROM Lt shoulder COMPARISON: None TECHNIQUE: 2 views of the left shoulder were performed FINDINGS: No acute fracture. The glenohumeral and acromioclavicular joint space is maintained The visualized portion of the adjacent left lung is clear. The humeral head is well seated within the glenoid fossa. IMPRESSION: No acute fracture or anterior dislocation. Discharge Plan Discharge Clinical Impression: Acute shoulder pain Patient Disposition: Home Condition: Stable Instructions: Antibiotic Form, Shoulder Pain (ED) Additional Instructions: Rest. Avoid pushing, pulling, lifting or anything that worsens the symptoms Tylenol 1000mg every 8 hours as needed You can alternate with ibuprofen 600mg Cyclobenzaprine (Flexeril) is a muscle relaxer. Take it as directed. It can cause drowsiness so do not drive or operate machinery until you know how it makes you feel. Alternate ice/heat to the site. Lidocaine or salon pas pain patch or use pain cream like icy/hot or biofreeze. Follow-up with meeting specialist, call today to schedule appointment Follow up with your primary care provider as needed in 1 week Go to the ER for worsening symptoms or concerns Patient Language: Burmese Prescriptions: New cyclobenzaprine 10 mg tablet 10 mg PO TID PRN (Reason: muscle spasm) Qty: 10 0RF ibuprofen 800 mg tablet 800 mg PO TID PRN (Reason: pain) Qty: 15 0RF No Action ibuprofen 600 mg tablet 600 mg PO QID PRN (Reason: pain) Qty: 20 0RF Rx Instructions: with food zolmitriptan [Zomig] 5 mg tablet See Rx Instructions PO .COMPLEX Qty: 14 5RF Rx Instructions: take 1 tab at onset of headache; if no relief, may repeat 1 tab after at least 2 hrs; max = 2 tabs/24 hrs PO riboflavin (vitamin B2) 400 mg tablet 400 mg PO DAILY cetirizine [Zyrtec] 10 mg tablet 10 mg PO DAILY PRN (Reason: allergies) fluticasone propionate [Flonase Allergy Relief] 50 mcg/actuation spray,suspension 1 spray intranasal DAILY Rx Instructions: administer into each nostril ferrous sulfate 325 mg (65 mg iron) tablet 325 mg PO DAILY levothyroxine [Unithroid] 75 mcg tablet 75 mcg PO . Q.a.m. Qty: 90 3RF buspirone 10 mg tablet 10 mg PO BID Qty: 180 3RF estradiol 0.075 mg/24 hr patch semiweekly 1 patch transdermal 2XW Qty: 16 1RF Rx Instructions: apply 1 patch for 3 days alternating with 1 patch for 4 days each week norethindrone ac-eth estradiol 1-20 mg-mcg tablet 1 tablet PO DAILY Qty: 84 5RF Rx Instructions: 1 tablet daily in a continuous manner skipping placebo to skip cycles escitalopram oxalate [Lexapro] 20 mg tablet 20 mg PO DAILY Qty: 90 3RF (DME) BD Eclipse Luer-Francisca 3 mL 23 x 1 syringe See Rx Instructions .Route Qty: 50 1RF Rx Instructions: weekly cyanocobalamin (vitamin B-12) 1,000 mcg/mL solution 1,000 mcg subcut . weekly Qty: 4 11RF dextroamphetamine-amphetamine [Adderall] 5 mg tablet 5 mg PO BID Qty: 60 0RF Rx Instructions: administer doses at least 4-6 hours apart gabapentin 100 mg capsule 100 mg PO QHS Qty: 30 11RF Rx Instructions: per neuro Follow-up/Referrals: Blayne Davidson MD [Primary Care Provider] - Mikey Jones MD [Physician] - Time of Disposition: 09:51
== END 2024-05-29 09:54 | disposition home or self-care (01) ==
PROVIDERS: Emergency Provider Nurse Practitioner Family; PCP Family Medicine
DX: M25.512 Pain in left shoulder (principal); G25.81 Restless legs syndrome; E78.2 Mixed hyperlipidemia; E66.9 Obesity, unspecified; E03.9 Hypothyroidism, unspecified; F90.9 Attention-deficit hyperactivity disorder, unspecified type; F41.9 Anxiety disorder, unspecified; F32.A Depression, unspecified; E53.8 Deficiency of other specified B group vitamins; Z86.16 Personal history of COVID-19
CPT/HCPCS: 73030; 99213; G0463

== ENCOUNTER 2024-09-13 09:02 | Emergency (ER) | payer OTHER, SELFPAY ==
--- NOTE | ~2024-09-13 | XR_ITS ---
EXAMINATION: XR foot LT min 3V DATE: 09/13/2024 09:35 INDICATION: Distal left foot pain, swelling and bruising TECHNIQUE: Dorsoplantar, two oblique and lateral views of the left foot were obtained. COMPARISON: 04/15/2021 FINDINGS: Alignment is normal. No fracture. Joint spaces are normal. Unchanged chronic juxta articular erosion with thin sclerotic margins at the lateral base of the fourth metatarsal. Small plantar calcaneal spu r. Soft tissues are unremarkable. IMPRESSION: 1. No acute osseous abnormality. 2. 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 Reviewed, dictated and finalized at location A.
[2024-09-13 09:17] VITALS: BP 117/81; PULSE 79; RESP 16; TEMP 36.1; O2SAT 100
--- NOTE | 2024-09-13 09:20 | ED.EXTPRO ---
HPI - Extremity Problem General Chief complaint: Extremity Problem,Nontraumatic Stated complaint: L FOOT PAIN/SWELLING Time Seen by Provider: 09/13/24 09:10 Source: patient and RN notes reviewed Mode of arrival: ambulatory Limitations: no limitations History of Present Illness HPI Narrative: 44-year-old female presents Express Care complaining of left foot pain and swelling for approximately 2 days. Patient denies any apparent injury to her left foot. Patient does increased bruising, swelling and pain with bearing weight to her left foot approximally 2 days ago. Patient was swelling is improved some however she still having pain with ambulation. Patient took ibuprofen has been using ice with minimal relief. Patient reports her pinky toe was missing a joint and was surgically reconstructed. Patient denies any numbness or tingling. Related Data Home Medications ?Medication ?Instructions ?Recorded ?Confirmed ?Last Taken ?Type cetirizine 10 mg tablet (Zyrtec) 10 mg PO DAILY PRN allergies 06/18/22 07/04/24 08/01/23 History fluticasone propionate 50 1 spray intranasal DAILY 06/18/22 07/04/24 08/01/23 History mcg/actuation nasal spray,suspension (Flonase Allergy Relief) riboflavin (vitamin B2) 400 mg 400 mg PO DAILY 11/10/22 07/04/24 12/29/23 History tablet ferrous sulfate 325 mg (65 mg 325 mg PO DAILY 10/12/23 07/04/24 12/28/23 History iron) tablet lidocaine 5 % topical cream 1 applic topical TID PRN pain 07/04/24 07/04/24 Unknown History (RectiCare) ibuprofen 800 mg tablet mg 09/13/24 Unknown History norethindrone acetate 1 mg-ethinyl tablet 09/13/24 Unknown History estradiol 20 mcg tablet (Junel) Allergies Allergy/AdvReac Type Severity Reaction Status Date / Time No Known Allergies Allergy Verified 04/10/24 09:45 Review of Systems Review of Systems: CONSTITUTIONAL: Denies fever, chills, or sweats. EYES: Denies visual changes, redness, or discharge. ENT: Denies rhinorrhea, congestion, sore throat, or otalgia. CARDIOVASCULAR: Denies chest pain, palpitations, or edema. RESPIRATORY: Denies cough or dyspnea. GASTROINTESTINAL: Denies abdominal pain, nausea, vomiting, or diarrhea. GENITOURINARY: Denies dysuria or hematuria. SKIN: Denies rash, wound, or itching. MUSCULOSKELETAL: Denies back pain, joint pain, or myalgia. Positive for left pain, swelling, bruising, and swelling NEUROLOGIC: Denies headache, numbness, or weakness. PSYCHIATRIC: Denies anxiety or depression. All other systems reviewed are negative, except as documented in HPI. [facility] Past Medical History Medical History Insomnia Pharyngitis BMI 32.0-32.9,adult Edema of left lower extremity Thoracic back pain Dysuria COVID-19 (~03/01/19) positive antibody test 04/30/2020. Positive COVID 01/31/2024. Otitis media Left lower quadrant abdominal pain Restless legs syndrome iron 106 with 32% saturation and ferritin 29 on 09/29/2023. Mixed hyperlipidemia (09/29/23) total cholesterol 232, triglycerides 145, HDL 58, LDL 147 with ratio 4.0 on 09/29/2023. Vitamin B12 deficiency Level normal at 12 152 with folic acid 6.7 and hemoglobin 13.6 on 09/29/2023. BMI 30.0-30.9,adult Obesity (BMI 30.0-34.9) Anal pain Hemorrhoids Fecal incontinence Hemiplegic migraine Migraine Left wrist pain Fatigue Cough Chest x-ray 08/13/2022 normal. Ganglion cyst of dorsum of left wrist Acute non-recurrent maxillary sinusitis Microcalcification of breast Hypersomnia (~2021) Home sleep study 03/10/2022 did not reveal TANGELA. 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 Hypothyroidism, unspecified (~12/2021) treated by information systems professor, Dr. Galo 01/01/2022. TSH suppressed at 0.14, free T4 0.9, T3 total 101 on 09/29/2023. Abnormal thyroid screen (blood) Abnormal thyroid blood test Irregular periods Screening mammogram, encounter for Vaginal delivery 08/17/05 post hemorrhage Encounter for IUD removal 12/05/15 Mirena removal Encounter for IUD insertion 07/29/11 Mirena insertion Abnormal Pap smear of cervix ASCUS/ NEG HPV-2008 Nonunion of fracture of foot Chronic toe pain, left foot Overweight (BMI 25.0-29.9) Viral gastroenteritis Migraine without aura and without status migrainosus, not intractable (~03/2021) CT angiogram of the head and neck on 10/13/2022 was unremarkable. Pain and swelling of toe of left foot (02/09/21) crush injury 02/09/2021 left 5th toe . X-ray on 04/15/2021 reveals possible healing fractures of the proximal and distal phalanx BMI 28.0-28.9,adult Attention deficit hyperactivity disorder (ADHD), combined type, mild Caffeine abuse, continuous Patient stopped all caffeine. BMI 27.0-27.9,adult Mild intermittent asthma in adult without complication Seasonal allergic rhinitis Chronic anxiety Encounter for screening for other viral diseases Bipolar disorder DVT prophylaxis Blurry vision Neurological symptoms ADD (attention deficit disorder) Depression Kidney stones Surgical History Surgical History History of left salpingo-oophorectomy (12/30/23) Robotic assisted left salpingo oophorectomy History of orthopedic surgery left toe surgery flatbed ran over foot History of tubal ligation (12/05/14) History of cholecystectomy (~2009) Status post cystoscopy History of right salpingo-oophorectomy Status post tonsillectomy History of dilatation and curettage Family History Family History Father Hypertension Mother Breast cancer Social History Social History Smoking status: Never smoker Tobacco type: cigarettes and e-cigarettes/vaping Additional smoking assessment comments: 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 Gender identity (if verbalized by the patient): Female Sexual Orientation (if Verbalized by the Patient): Straight or Heterosexual Spiritual care concerns: No Agree to blood products: Yes Comments At the time of my signature, I reviewed and agree with the nursing past medical, surgical, social, and family history. There is no relevant family history pertinent to the patient complaint. Exam Narrative: GENERAL: This is a well-nourished, well-developed adult, in no apparent distress. They are non ill-appearing, nontoxic appearing. HEAD: normocephalic, atraumatic. EYES: Sclera clear/white. Vision is grossly intact. Conjunctiva normal. Extraocular movement intact. EARS: External ears normal Hearing grossly intact. NOSE: External nose normal THROAT: Mucous membranes moist NECK: Neck supple CARDIOVASCULAR: Regular rate and rhythm RESPIRATORY: Respiratory rate normal, respiratory effort nonlabored, no respiratory distress NEURO: awake, alert, and oriented to person, place and time. There were no obvious focal neurologic abnormalities. EXTREMITIES: Left foot: No obvious deformity or redness. Distal dorsal surface of foot is edematous and ecchymotic. Tenderness to palpation throughout the swelling. Normal dorsiflexion and plantar flexion. Capillary refill less than 3 seconds. Left pedal Pulse 2 +palpable. Normal sensation. Neurovascular status intact distal injury. Patient able to wiggle toes. BACK: Nontender without deformity. Course Course Emergency Course: Portions of this record may have been created with voice recognition software Level of Care: Express Care Visit Vital Signs Vital signs: Vital Signs Temperature 96.9 F L 09/13/24 09:17 Pulse Rate 79 09/13/24 09:17 Respiratory Rate 16 09/13/24 09:17 Blood Pressure 117/81 09/13/24 09:17 Pulse Oximetry 100 09/13/24 09:17 Temperature 96.9 F L 09/13/24 09:17 Pulse Rate 79 09/13/24 09:17 Respiratory Rate 16 09/13/24 09:17 Blood Pressure 117/81 09/13/24 09:17 Pulse Oximetry 100 09/13/24 09:17 Reviewed MDM - Extremity (Nontraumatic) MDM Narrative Medical decision making narrative: X-ray left foot shows no evidence of fracture or acute findings. Appears to be a soft tissue injury. Patient denies any apparent injury or crush injury to left foot. Patient given Dewayne wrap for compression also given crutches to use as needed for any problems with bearing weight to her left. Discussed physical exam findings. Advised supportive measures and signs/symptoms to go to the ER. Pt is appropriate for outpt treatment and f/u. Differential Diagnosis Differential diagnosis: Likely other (Foot sprain, foot fracture, toe fracture) Imaging Data Radiologist's impression: ITS Impressions Foot X-Ray 09/13/24 10:34 IMPRESSION: 1. No acute osseous abnormality. 2. 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 Critical Care Time Critical Care Time Critical Care Time: No Discharge Plan Discharge Clinical Impression: Sprain of foot, left Qualifiers: Encounter type: initial encounter Qualified Code(s): S93.602A - Unspecified sprain of left foot, initial encounter Patient Disposition: Home Condition: Stable Instructions: Foot Sprain (ED) Additional Instructions: The x-ray of your left foot was negative for any fractures or acute findings. Rest and elevate the leg; bear weight as tolerated. You may use crutches as needed. Apply ice 15-20 minute intervals several times a day Keep it wrapped with DEWAYNE for compression Motrin 600mg -800mg every 6-8 8 hours, alternate with Tylenol 1000mg every 6-8 8 hours as needed Follow up with your primary care provider, orthopedist, or pre sales technical consultant 1-2 weeks if pain is persisting Patient Language: Bulgarian Prescriptions: No Action ibuprofen 800 mg tablet norethindrone ac-eth estradiol [03/06 (21)] 1-20 mg-mcg tablet riboflavin (vitamin B2) 400 mg tablet 400 mg PO DAILY cetirizine [Zyrtec] 10 mg tablet 10 mg PO DAILY PRN (Reason: allergies) fluticasone propionate [Flonase Allergy Relief] 50 mcg/actuation spray,suspension 1 spray intranasal DAILY Rx Instructions: administer into each nostril lidocaine [RectiCare] 5 % cream 1 applic topical TID PRN (Reason: pain) ferrous sulfate 325 mg (65 mg iron) tablet 325 mg PO DAILY levothyroxine [Unithroid] 75 mcg tablet 75 mcg PO . Q.a.m. Qty: 90 3RF escitalopram oxalate [Lexapro] 20 mg tablet 20 mg PO DAILY Qty: 90 3RF (DME) BD Eclipse Luer-Francisca 3 mL 23 x 1 syringe See Rx Instructions .Route Qty: 50 1RF Rx Instructions: weekly cyanocobalamin (vitamin B-12) 1,000 mcg/mL solution 1,000 mcg subcut . weekly Qty: 4 11RF gabapentin 100 mg capsule 100 mg PO QHS Qty: 30 11RF Rx Instructions: per neuro hydrocortisone [Anusol-HC] 2.5 % cream with perineal applicator 1 applic RECTAL TID PRN (Reason: hemorrhoids) Qty: 30 0RF buspirone 10 mg tablet 10 mg PO BID Qty: 180 3RF estradiol 0.075 mg/24 hr patch semiweekly 1 patch transdermal 2XW Qty: 16 1RF Rx Instructions: apply 1 patch for 3 days alternating with 1 patch for 4 days each week diazepam 2 mg tablet 2 mg PO QHS PRN (Reason: insomnia) Qty: 30 5RF dextroamphetamine-amphetamine [Adderall] 5 mg tablet 5 mg PO BID Qty: 60 0RF Rx Instructions: administer doses at least 4-6 hours apart Follow-up/Referrals: Fausto Zabala DPM [Physician] - Blayne Davidson MD [Primary Care Provider] - Mookie Mcgarry MD [Physician] - Time of Disposition: 10:45
== END 2024-09-13 10:58 | disposition home or self-care (01) ==
PROVIDERS: PCP Family Medicine
DX: S93.602A Unspecified sprain of left foot, initial encounter (principal); X58.XXXA Exposure to other specified factors, initial encounter; G25.81 Restless legs syndrome; E78.2 Mixed hyperlipidemia; E66.9 Obesity, unspecified; Z68.33 Body mass index [BMI] 33.0-33.9, adult; E03.9 Hypothyroidism, unspecified; F90.9 Attention-deficit hyperactivity disorder, unspecified type; F41.9 Anxiety disorder, unspecified; F32.A Depression, unspecified
CPT/HCPCS: 73630; 99213; G0463

== ENCOUNTER 2024-10-24 16:05 | Outpatient (CLI) | payer OTHER, SELFPAY ==
--- OUTSIDE RECORDS SUMMARY | 2017-10-04 19:00 | XMS_ITS | Continuity of Care Document ---
Author Organization [facility] Address [address] [place] [address] [place] [address] Phone Care Team Providers Care Hog Ribber Name Role Phone Roni Morris MD Unavailable Unavailable Advance Directives Directive Yes / No Effective Date File Name No Information Encounters Encounter Description Practice Location Reason(s) For Visit Diagnoses Date Provider Providers Copied on Encounter [facility], [address] [place], [id number], [place] tel:[phone] [facility] No Information Arturo Tamayo. [address] [place], [place], [id number], [place]. tel:[phone] Family History Family Member Type Diagnosis Age At Onset No Information Payers Payer name Insurance type Covered green party ID Authoriza tion(s) No Information Social History Type Description Quantity Date Captured Comments Sex Female Smoking Status No Information Chief Complaint And Reason For Visit No Information Plan Of Treatment Date Type Action Status No Information History Of Present Illness Encounter Date Complaint History Of Prese nt Illness No Information Instructions Date Instruction Additional Infor mation No Information Assessments Type Assessment Date No Information
--- NOTE | ~2024-10-24 | CT_ITS ---
EXAMINATION: CT soft tissue neck w con COMPARISON: None HISTORY: E04.9 - Nontoxic goiter, unspecified TECHNIQUE: Axial images were obtained with IV contrast. Sagittal, coronal reconstruction images were obtained from the axial views. Omnipaque 370, [address] scan performed using dose optimization techniques including the following automated exposure control; adjustment of mA and/or kV; use of iterative reconstruction technique. Automatic exposure control was used to reduce radiation dose. Permanent radiation dose record is archived to PACS. FINDINGS: Visualized brain parenchyma is unremarkable. Optic globes unremarkable. No thickening of the prevertebral space or asymmetry of the airway. No asymmetry of the base of the tongue or the aryepiglottic folds. No asymmetry of the vocal cords No thyroid nodules identified, the thyroid lobes appear atrophic. There is no lymphadenopathy in the anterior superior mediastinum. No thickening of the esophagus Parapharyngeal spaces and tonsillar tissue unremarkable. Parotid and submandibular glands are unremarkable. There is no jugulodigastric, posterior cervical or supraclavicular lymphadenopathy. The lung apices are unremarkable. No sclerotic or lytic lesions. No significant sinusitis. The soft tissues are within normal limits IMPRESSION: Atrophy of the thyroid gland. Reviewed, dictated and finalized at location A.
--- OUTSIDE RECORDS SUMMARY | 2024-10-24 08:12 | XMS_ITS | Encounter Summary ---
Author Organization [facility] Address [address] [place] [address] Phone Care Team Providers Care Electronic Heat Seal Operator Name Role Phone Melvin Barrios MD Primary Care Provider Reason for Referral * Radiology Services (Routine) - Closed Specialty Diagnoses / Procedures Referred By Alyson soto Referred To Contact Radiology Diagnoses Hypothyroidism, unspecified type Dysphagia, unspecified type Procedures US THYROID Blayne Davidson MD [address] [address] Phone: tel: fax: Referral ID Status Reason Start Date Expiration Date Visits Re quested Visits Authorized [id number] Closed 09/27/2024 1 1 Reason for Visit * Radiology Services (Routine) - Closed Specialty Diagnoses / Procedures Referred By Alyson soto Referred To Contact Radiology Diagnoses Hypothyroidism, unspecified type Dysphagia, unspecified type Procedures US THYROID Blayne Davidson MD [address] [address] Phone: tel: fax: Referral ID Status Reason Start Date Expiration Date Visits Re quested Visits Authorized [id number] Closed 09/27/2024 1 1 Encounter Details Date Type Department Care Team (Late st Contact Info) Description 10/24/2024 8:12 AM CDT Hospital Encounter [facility] Ultrasound [address] [place] [address] Blayne Davidson MD [address] [address] Arrived Social History Tobacco Use Types Packs/Day Years [...] file Not on file Not on file documented as of this encounter Plan of Treatment Not on file documented as of this encounter Procedures Procedure Name Priority Date/Time Associated Diagnosis Comments US THYROID Routine 10/24/2024 8:45 AM CDT Hypothyroidism, unspecified type Dysphagia, unspecified type documented in this encounter Results * US THYROID (10/24/2024 8:45 AM CDT) Anatomical Region Laterality Modality BODY N/A Ultrasound 10/24/2024 8:45 AM CDT Impressions 10/24/2024 11:27 AM CDT IMPRESSION: 1. Diffuse thyroid atrophy. 2. No focal thyroid abnormality. Narrative 10/24/2024 11:27 AM CDT DICTATING PHYSICIAN: Gokul Brothers M.D. EXAM: Thyroid Sonography 10/24/2024 8:45 AM INDICATION: Hypothyroidism for 4 years. COMPARISON: None. FINDINGS: Right lobe measurements: 4.0 x 1.3 x 1.1 cm. Left lobe measurements: 3.1 x 0.7 x 1.2 cm. Isthmus measurements: 0.15 cm. Thyroid tissue echotexture: Normal. Thyroid size/contour: Normal. Thyroid tissue vascularity: Normal. Estimated total number of nodules measuring > 1 cm: None. Other: No additional findings in the anterior neck. APPENDIX ACR TI-RADS recommendations: TR5 (7 or more points) - FNA if 1 cm or more, follow-up if 0.5 - 0.9 cm yearly for 5 years TR4 (4-6 points) - FNA if 1.5 cm or more, follow-up if 1 - 1.4 cm in 1, 2, 3, and 5 years TR3 (3 points) - FNA if 2.5 cm or more, follow-up if 1.5 - 2.4 cm in 1, 3, and 5 years TR2 (2 points) and TR1 (0 points) - No FNA or follow-up Procedure Note Gokul Brothers MD - 10/24/2024 DICTATING PHYSICIAN: Gokul Brothers M.D. EXAM: Thyroid Sonography 10/24/2024 8:45 AM INDICATION: Hypothyroidism for 4 years. COMPARISON: None. FINDINGS: Right lobe measurements: 4.0 x 1.3 x 1.1 cm. Left lobe measurements: 3.1 x 0.7 x 1.2 cm. Isthmus measurements: 0.15 cm. Thyroid tissue echotexture: Normal. Thyroid size/contour: Normal. Thyroid tissue vascularity: Normal. Estimated total number of nodules measuring > 1 cm: None. Other: No additional findings in the anterior neck. APPENDIX ACR TI-RADS recommendations: TR5 (7 or more points) - FNA if 1 cm or more, follow-up if 0.5 - 0.9 cmyearly for 5 years TR4 (4-6 points) - FNA if 1.5 cm or more, follow-up if 1 - 1.4 cm in 1, 2,3, and 5 years TR3 (3 points) - FNA if 2.5 cm or more, follow-up if 1.5 - 2.4 cm in 1, 3,and 5 years TR2 (2 points) and TR1 (0 points) - No FNA or follow-up IMPRESSION: 1. Diffuse thyroid atrophy. 2. No focal thyroid abnormality. us Blayne Davidson MD IMG US ORDERABLES Final Res ult documented in this encounter Visit Diagnoses Diagnosis Hypothyroidism, unspecified type Dysphagia, unspecified type documented in this encounter Care Teams Electronic Heat Seal Operator Relationship Specialty Start Date End Date Melvin Barrios MD [address] [place] [address] PCP - General Geriatric Medicine 10/06/18 documented as of this encounter
--- OUTSIDE RECORDS SUMMARY | 2024-10-24 17:06 | XMS_ITS | Clinical Summary ---
Author Organization [facility] Address [address] [place] [address] Care Team Providers Care Lcac Operator Name Role Phone Blayne Davidsno MD Primary Care Provider [phone] Source Comments [facility],non-owned Affiliates and Associated Physician Practices is amultiple site organization consisting of ambulatory clinics and hospital sitesin [place], [place], [place] and [place]. This disclosure is being madepursuant to the Care Everywhere program and may not contain all information available regarding this patient. Last updated 17.[facility] Allergies No known active allergies Medications * Be aware that medications may not be up to date on this document. Alwaysverify current medications with the patient. amphetamine-dext roamphetamine (Adderall) 10 MG tablet TAKE 1 TABLET BY MOUTH TWICE DAILY AT LEAST 4-6 HOURS APART Active benztropine (Cogentin) 0.5 MG tablet TK 1 T PO QAM UTD Active busPIRone (Buspar) 10 MG tablet Take 1 (one) tablet by mouth 2 times daily Active cyanocobalamin (Vitamin B-12) injection 1,000 (one thousand) mcg every 30 days 3 Active escitalopram (Lexapro) 20 MG tablet Take 1 (one) tablet by mouth once daily Active fluticasone propionate (Flonase) 50 MCG/ACT nasal spray Active levothyroxine (Unithroid) 75 MCG tablet Take 1 (one) tablet by mouth once daily 3 Active liothyronine (Cytomel) 5 MCG tablet Take 1 (one) tablet by mouth once daily 3 Active cetirizine (ZyrTEC) 10 MG tablet Take 1 (one) tablet by mouth once daily Active metoprolol succinate XL 24hr (Toprol XL) 25 MG tablet Take 1 (one) tablet by mouth once daily 3 Active omeprazole (PriLOSEC) 20 MG capsule Take 1 (one) capsule by mouth once daily 3 Active vitamin B2 (Riboflavin) 100 MG tablet Take 4 (four) tablets by mouth once daily Active azithromycin (Zithromax) 250 MG tablet 4 Active BinaxNOW COVID-19 Ag Home Test KIT Use as Directed on the Package 3 Active gabapentin (Neurontin) 100 MG capsuleIndicatio ns:Hemiplegic migraine without status migrainosus, not intractable,Migr mariajose without aura and without status migrainosus, not intractable Take 1 (one) capsule by mouth at bedtime 30 capsule 11 4 Active cefdinir (Omnicef) 300 MG capsule Take 1 (one) capsule by mouth every 12 hours 4 Active Active Problems Problem Noted Date Diagnosed Date Adnexal tenderness 02/22/2023 02/22/2023 Attention deficit disorder of adult 02/22/2023 02/22/2023 Episodic mood disorder 02/22/2023 4 Female stress incontinence 02/22/202302/22 Vitamin B12 deficiency [...] drink = 0.6 oz pur e alcohol) Comments No Sex and Gender Information Value Date Recorded Sex Assigned at Not on file Legal 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 Gender Identity Not on file Sexual Orientation [...] Done Comments LIPID TESTING 1982 MAMMOGRAM 1982 HIV SCREENING 1997 HEPATITIS C SCREENING 01/03/2000 DTAP/TDAP/TD VACCINES (1 - Tdap) 2001 HEPATITIS B VACCINE (1 of 3 - 19+ 3-dose series) 2001 PAP SMEAR 2003 HPV VACCINE (1 - 3-dose SCDM series) 2009 SCREENING FOR DIABETES 09/08/2022 DEPRESSION SCREENING 02/16/2024 COVID-19 VACCINE (1 - 2023-2 5 season) 2024 INFLUENZA VACCINE (#1) 2024 ZOSTER VACCINE (1 of 2) 01/08/2032 HIB VACCINE Aged Out No longer eligi ble based on patient's age to complete this topic MENINGOCOCCAL (Group B) VACC INE SHARED DECISION-MAKING Aged Out No longer eligibl e based on patient's age to complete this topic MENINGOCOCCAL GROUPS A/C/Y/W VACCINE Aged Out No longer eligible b ased on patient's age to complete this topic PNEUMOCOCCAL VACCINE Aged Out No long er eligible based on patient's age to complete this topic Insurance [facility] SELF PAY NO INSURANCE Member Subscriber Plan / Payer (Ef fective for All Dates) Name:Echo Burgos Member ID:Not on file Relation to Subscriber:Not on file Name:ECHO BURGOS Subscriber ID:Not on file Address: [address] [place] [address] Payer ID:Not on file Group ID:Not on file Type:Self Pay Address: [place], [place] [facility] PAYOR GENERIC Care Teams Lcac Operator Relationship Specialty Start Date End Date Blayne Davidson MD [address] [place] [address] PCP - General Family Medicine 07/01/22
--- OUTSIDE RECORDS SUMMARY | 2024-10-24 17:06 | XMS_ITS | Patient Health Record ---
Author Organization [facility] Address [address] [place] [address] Care Team Providers Care Dictaphone Operator Name Role Phone Mercedez Mobley Primary Care Provider Reason For Referral No Information Medications Medication SIG (Take, Route, Frequency, Duration) Notes Start Date End Date Status PROzac 40 MG 1 capsule Orally jonah ry morning; Duration: 30 days 12/22/2017 Active [place] 3-6-9 - 1 tablet Orally once daily; Duration: 07 days Active Social History Tobacco Use: Social History Observation Description Date Details (start date - stop date) Never Smoker NA - NA Dont use, Tobacco Use/Smoking Question Answer Notes Are you a nonsmoker Additional Findings: Tobacco Non-User Current no n-smoker Problems Problem Type SNOMED Code ICD Code Onset Dates Problem Status W/U Status Risk Notes Problem Mood disorder (81177582) Mood disorder (F39) Active confirmed Problem Depressive disorder (79769940) Depressive disorder (F32.9) Active confirmed Problem Adult attention deficit disorder (298294015) Attention deficit disorder of adult (F90.0) Active confirmed Problem Anxiety state (185292968) Anxiety disorder, unspecified type (F41.9) Active confirmed Plan Of Treatment No Information Insurance Providers Payer Name Payer Address Payer Phone Subscriber Number Group Number Insured Name Patient Relationship to Insured Coverage Start Date Coverage End Date [facility] Attn Claims Department [address] [place] [address] [id number] Echo Joy am Self - patient is the insured 6 MEDICAID [address] [place] [address] [id number] Echo Joy am Self - patient is the insured 8
--- OUTSIDE RECORDS SUMMARY | 2024-10-24 17:06 | XMS_ITS | Clinical Summary ---
Author Organization [facility] [address] [facility] [address] [address] Phone Care Team Providers Care Boilermaking Supervisor Name Role Phone Melvin Barrios MD Primary Care Provider [phone] Allergies No known active allergies Medications FOLIC ACID PO Take 2 Tabs by mouth 2 times daily. Active CRANBERRY PO Take 1 Tab by mouth daily. Active Probiotic Product (PROBIOTIC PO) Take 1 Tab by mouth daily. Active Encounters Date Type Department Care Team Description 10/24/2024 8:12 AM CDT [facility] Ultrasound [address] [place] [id number] Blayne Davidson MD Arrived 10/23/2024 Travel 09/27/2024 Transcribe Orders [facility] Central Scheduling [address] [place] [phone] Blayne Davidson MD Hypothyroidism, unspecified type (Primary Dx); Dysphagia, unspecified type from Last 3 Months Family History Medical History Relation Name Comments [...] Comments Hepatitis C Virus (HCV) Screening 1982 Mammogram 1982 TdaP Immunization 1982 Hepatitis B Immunization (1 of 3 - 19+ 3-dose series) 2001 Pap Smear 2003 Human Papillomavirus (HPV) Immunization (1 - 3-dose SCDM series) 2009 Cervical Cancer Screening (CCS) 01/08/2012 HPV/Cotest 01/08/2012 Discussion re Starting/Frequency of Mammograms 2022 Influenza Immunization (#1) 10/16/202411/16, 02/27/2023, 11/21/2020, Additional history exists Respiratory Syncytial Virus (RSV) Immunization (Adult) (1 - 1-dose 75+ series) 2057 SARS-COV-2 Immunization Completed 12/07/19 24, 02/27/2023, 11/05/2021, Additional history exists Meningococcal Immunization (ACWY) Aged Out No longer eligible based on patient's age to complete this topic Pneumococcal Immunization Combined Aged Out No longer eligible based on patient's age to complete this topic Rotavirus Immunization Aged Out No lo nger eligible based on patient's age to complete this topic Procedures Procedure Name Priority Date/Time Associated Diagnosis Comments US THYROID Routine 10/24/2024 8:45 AM CDT Hypothyroidism, unspecified type Dysphagia, unspecified type from Last 3 Months Results * US THYROID (10/24/2024 8:45 AM [...] focal thyroid abnormality. us Blayne Davidson MD [facility] US ORDERABLES Final Res ult from Last 3 Months Insurance MEDICAID [employer] [address] [id number] Care Teams Boilermaking Supervisor Relationship Specialty Start Date End Date Melvni Barrios MD [address] [place] [address] PCP - General Geriatric Medicine 10/06/18
--- OUTSIDE RECORDS SUMMARY | 2024-10-24 17:06 | XMS_ITS | Clinical Summary ---
Author Organization [facility] Address [facility] [place] [address] Care Team Providers Care Warehouse Driver Name Role Phone None, Provider MD Primary [...] liothyronine (CYTOMEL) 5 MCG Tab daily. Active [place] 3-6-9 Cap 1 tablet. Active meloxicam (MOBIC) 15 MG tablet Take 1 tablet (15 mg total) by mouth daily. 30 tablet Active Social History Tobacco Use Types Packs/Day Years Used Date Smoking Tobacco: Never Assessed Tobacco Cessation:Counseling Given: Not Answered Comments No Sex and Gender Information Value Date Recorded Sex Assigned at Not on file Legal Sex Female 9:40 AM DOLL WIGS HACKLER Gender Identity Not on file Sexual Orientation Not on file Last Filed Vital Signs Vital Sign Reading Time Taken Comments Blood Pressure 115/69 04/12/2022 9:58 AM DOLL WIGS HACKLER Pulse 90 04/12/2022 9:58 AM DOLL WIGS HACKLER Temperature 36.9 C (98.5 F) 04/12/2022 9:58 AM DOLL WIGS HACKLER Respiratory Rate 18 04/12/2022 9:58 AM DOLL WIGS HACKLER Oxygen Saturation 100% 04/12/2022 9:58 AM DOLL WIGS HACKLER Inhaled Oxygen Concentration - - Weight 56.7 kg (125 lb) 04/12/2022 9:58 AM DOLL WIGS HACKLER Height 154.9 cm (5' 1) 04/12/2022 9:58 AM DOLL WIGS HACKLER Body Mass Index 23.62 04/12/2022 9:58 AM DOLL WIGS HACKLER Plan of Treatment Health Maintenance Due Date Last Done Comments Cervical Cancer Screening Pap Smear (Age 30 to 64) Every 3 Years 1982 Annual Physical 1985 Hepatitis C 01/08/2000 DTaP, Tdap and Td Vaccines (1 - Tdap) 2001 Hepatitis B Vaccines (1 of 3 - 19+ 3-dose series) 2001 HPV Vaccines (1 - 3-dose SCDM series) 2009 Cervical Cancer Screening Pap with HPV Testing (Age 30 to 64) Every 5 Years 01/08/2012 Cervical Cancer Screening with HPV 01/08/2012 Mammogram Screening 2022 COVID-19 Vaccine ( season) 2024 11/05/2021, 01/27/2021, 06/11/2020, Additional history exists Meningococcal B Vaccine Aged Out No l onger eligible based on patient's age to complete this topic Meningococcal Vaccine Aged Out No mat dilia eligible based on patient's age to complete this topic Pneumococcal Vaccine: Pediatrics (0 to 5 Years) and At-Risk Patients (6 to 49 Years) Aged Out No longer eligible based on patient's age to complete this topic RSV Immunizations Under 20 Months Aged Out No longer eligible based on patient's age to complete this topic Insurance [employer] [facility] Care Teams Warehouse Driver Relationship Specialty Start Date End Date None, Provider, MD PCP - General UNKNOWN PHYSICIAN SPECIALTY 04/12/22
--- OUTSIDE RECORDS SUMMARY | 2024-10-24 17:06 | XMS_ITS | Encounter Summary ---
Author Organization [facility] [facility] Care Team Providers Care Taker Off Hemp Fiber Name Role Phone Melvin Barrios MD Primary Care Provider [phone] Encounter Details Date Type Department Care Team (Latest Contact Info) Description 10/23/2024 Travel Social History Tobacco Use Types Packs/Day Years [...] on file documented as of this encounter Visit Diagnoses Not on filedocumented in this encounter Care Teams Taker Off Hemp Fiber Relationship Specialty Start Date End Date Melvin Barrios MD [address] [place] [address] PCP - General Geriatric Medicine 10/06/18 documented as of this encounter
== END 2024-10-24 16:06 | disposition home or self-care (01) ==
PROVIDERS: PCP Family Medicine; Visit Provider Otolaryngology
DX: E04.9 Nontoxic goiter, unspecified (principal)
CPT/HCPCS: 70491; Q9967

== ENCOUNTER 2024-12-15 07:58 | Outpatient (CLI) | payer OTHER, SELFPAY ==
--- NOTE | ~2024-12-15 | US_ITS ---
EXAMINATION: US soft tissue abdomen, 12/15/2024 8:14 CDT HISTORY: R19.07 - Generalized intra-abdominal and pelvic swelling,... Comparison: None Technique: Dent-scale and color Doppler images were obtained. Findings: Correlating with the palpable area there is no abnormal mass or mass effect. There is no abnormal flow IMPRESSION: Unremarkable exam Reviewed, dictated and finalized at location P. IMPRESSION: Unremarkable exam
--- OUTSIDE RECORDS SUMMARY | 2024-12-15 08:05 | XMS_ITS | Clinical Summary ---
Author Organization [facility] Address [address] [address] Phone Care Team Providers Care Engine Manager Name Role Phone Melvin Barrios MD Primary Care Provider [phone] Allergies No known active allergies Medications FOLIC ACID PO Take 2 Tabs by mouth 2 times daily. Active CRANBERRY PO Take 1 Tab by mouth daily. Active Probiotic Product (PROBIOTIC PO) Take 1 Tab by mouth daily. Active Encounters Date Type Department Care Team Description 10/24/2024 8:12 AM CDT - 10/24/2024 11:59 PM CDT [facility] Ul[facility]ound [address] [place] [phone] Blayne Davidson MD Discharge Disposition: Discharged to home or Selfcare 10/23/2024 Travel 09/27/2024 Transcribe Orders [facility] Central Scheduling [address] [place] [phone] Blayne Davidson MD Hypothyroidism, unspecified type (Primary [...] focal thyroid abnormality. us Blayne Davidson MD [facility] ORDERABLES Final Res ult from Last 3 Months Insurance MEDICAID [employer] Care Teams Engine Manager Relationship Specialty Start Date End Date Melvin Barrios MD [address] [place] [address] PCP - General Geriatric Medicine 10/06/18
--- OUTSIDE RECORDS SUMMARY | 2024-12-15 08:05 | XMS_ITS | Clinical Summary ---
Author Organization [facility] Address [facility] [place] [address] Care Team Providers Care Bariatric Program Coordinator Name Role Phone None, Provider MD Primary [...] liothyronine (CYTOMEL) 5 MCG Tab daily. Active [place] 3-6-9 Cap 1 tablet. Active meloxicam (MOBIC) 15 MG tablet Take 1 tablet (15 mg total) by mouth daily. 30 tablet Active Social History Tobacco Use Types Packs/Day Years Used Date Smoking Tobacco: Never Assessed Tobacco Cessation:Counseling Given: Not Answered Comments No Sex and Gender Information Value Date Recorded Sex Assigned at Not on file Legal Sex Female 9:40 AM PEST MANAGEMENT SUPERVISOR Gender Identity Not on file Sexual Orientation Not on file Last Filed Vital Signs Vital Sign Reading Time Taken Comments Blood Pressure 115/69 04/12/2022 9:58 AM PEST MANAGEMENT SUPERVISOR Pulse 90 04/12/2022 9:58 AM PEST MANAGEMENT SUPERVISOR Temperature 36.9 C (98.5 F) 04/12/2022 9:58 AM PEST MANAGEMENT SUPERVISOR Respiratory Rate 18 04/12/2022 9:58 AM PEST MANAGEMENT SUPERVISOR Oxygen Saturation 100% 04/12/2022 9:58 AM PEST MANAGEMENT SUPERVISOR Inhaled Oxygen Concentration - - Weight 56.7 kg (125 lb) 04/12/2022 9:58 AM PEST MANAGEMENT SUPERVISOR Height 154.9 cm (5' 1) 04/12/2022 9:58 AM PEST MANAGEMENT SUPERVISOR Body Mass Index 23.62 04/12/2022 9:58 AM PEST MANAGEMENT SUPERVISOR Plan of Treatment Health Maintenance Due Date [...] 2024 11/05/2021, 01/27/2021, 06/11/2020, Additional history exists Influenza Adult (#1) 2024 11/21/2020, 11/09/2019, 11/29/2018, Additional history exists Hepatitis A Vaccines Aged Out No long er eligible based [...] this topic Insurance [facility] Care Teams Bariatric Program Coordinator Relationship Specialty Start Date End Date None, Provider, PCP - General UNKNOWN PHYSICIAN SPECIALTY 04/12/22
--- OUTSIDE RECORDS SUMMARY | 2024-12-15 08:05 | XMS_ITS | Patient Health Record ---
Author Organization [facility] Address [address] [place] [address] Care Team Providers Care Moisture Meter Operator Name Role Phone Mercedez Mobley Primary Care Provider [phone] Reason For Referral No Information Medications Medication SIG (Take, Route, Frequency, Duration) Notes Start Date End Date Status PROzac 40 MG 1 capsule Orally jonah ry morning; Duration: 30 days 12/22/2017 Active [place] 3-6-9 - 1 tablet Orally once daily; [...] W/U Status Risk Notes Problem Mood disorder (83576177) Mood disorder (F39) Active confirmed Problem Depressive disorder (48436505) Depressive disorder (F32.9) Active confirmed Problem Adult attention deficit disorder (608360645) Attention deficit disorder of adult (F90.0) Active confirmed Problem Anxiety state (793595595) Anxiety disorder, unspecified type (F41.9) Active confirmed Plan Of Treatment No Information Insurance Providers Payer Name Payer Address Payer Phone Subscriber Number Group Number Insured Name Patient Relationship to Insured Coverage Start Date Coverage End Date [facility] Attn Claims Department [address] [place] [address] [id number] Echo Joy am Self - patient is the insured 6 MEDICAID [address] [place] [address] [id number] Echo Joy am Self - patient is the insured 8
--- OUTSIDE RECORDS SUMMARY | 2024-12-15 08:05 | XMS_ITS | Clinical Summary ---
Author Organization [facility] [employer] Address [address] [place] [address] Care Team Providers Care Fish Tender Name Role Phone Blayne Davidson MD Primary Care Provider [phone] Source Comments [facility] [employer],non-owned Affiliates and Associated Physician Practices is amultiple site organization consisting of ambulatory clinics and hospital sitesin [place], [place], [place] and [place]. This disclosure is being madepursuant to the Care Everywhere program and may not contain all information available regarding this patient. Last updated 17.[facility] [employer] Allergies No known active allergies Medications * [...] on file Legal Sex Female 6:03 AM COUNTER [employer]ERK [employer] Gender Identity Not on file Sexual Orientation [...] patient's age to complete this topic Insurance [facility] SELF PAY NO INSURANCE Member Subscriber Plan / Payer (Ef fective for All Dates) Name:Echo Burgos Member ID:Not on file Relation to Subscriber:Not on file Name:ECHO BURGOS Subscriber ID:Not on file Address: [address] [place] [address] Payer ID:Not on file Group ID:Not on file Type:Self Pay Address: [place], [place] [facility] PAYOR GENERIC Care Teams Fish Tender Relationship Specialty Start Date End Date Blayne Davidson MD [address] [place] [address] PCP - General Family Medicine 07/01/22
== END 2024-12-15 07:59 | disposition home or self-care (01) ==
PROVIDERS: PCP Family Medicine; Visit Provider Nurse Practitioner Family
DX: R19.07 Generalized intra-abdominal and pelvic swelling, mass and lump (principal)
CPT/HCPCS: 76705

== ENCOUNTER 2025-02-11 10:59 | Emergency (ER) | payer OTHER, SELFPAY ==
[2025-02-11 11:37] VITALS: BP 115/73; PULSE 79; RESP 16; TEMP 36.6; O2SAT 100
--- NOTE | 2025-02-11 12:03 | ED.URI ---
HPI - URI/Sore Throat General Chief Complaint: Upper Respiratory Infection Stated Complaint: watery eyes, shoulder pain,runny nose,vomiting Time Seen by Provider: 02/11/25 11:40 Source: patient Mode of arrival: ambulatory Limitations: no limitations History of Present Illness HPI Narrative: Echo is a 45-year-old female patient presenting to the clinic today with complaints of watery eyes, bilateral shoulder blade pain, runny nose, vomiting, sore throat, feeling feverish, and congestion. States she is not able to take smell at this time. Symptoms just started yesterday. Had to leave work today MD elicited complaint: sore throat and nasal congestion Related Data Home Medications ?Medication ?Instructions ?Recorded ?Confirmed ?Last Taken ?Type cetirizine 10 mg tablet (Zyrtec) 10 mg PO DAILY PRN allergies 06/18/22 02/11/25 08/01/23 History fluticasone propionate 50 1 spray intranasal DAILY 06/18/22 02/11/25 08/01/23 History mcg/actuation nasal spray,suspension (Flonase Allergy Relief) riboflavin (vitamin B2) 400 mg 400 mg PO DAILY 11/10/22 02/11/25 12/29/23 History tablet ferrous sulfate 325 mg (65 mg 325 mg PO DAILY 10/12/23 02/11/25 12/28/23 History iron) tablet lidocaine 5 % topical cream 1 applic topical TID PRN pain 07/04/24 02/11/25 Unknown History (RectiCare) ibuprofen 800 mg tablet mg 09/13/24 11/29/24 Unknown History norethindrone acetate 1 mg-ethinyl tablet 09/13/24 11/29/24 Unknown History estradiol 20 mcg tablet (Junel) Allergies Allergy/AdvReac Type Severity Reaction Status Date / Time sumatriptan (From Imitrex) AdvReac Intermediate Numbness Verified 02/11/25 11:46 Review of Systems Review of Systems: Pertinent positives per HPI. Patient denies any fever, chills, rash, headache, visual changes, dizziness, cough, shortness of breath, chest pain, palpitations, nausea, vomiting, diarrhea, constipation, abdominal pain, or any urinary issues. [facility] Past Medical History Medical History (Updated 02/11/25 @ 12:05 by Fred Hollingsead, DIVISION [employer]) Snoring BMI 35.0-35.9,adult Generalized swelling, mass, or lump of abdomen or pelvis Cervicalgia Goiter No significant thyroid enlargement on ultrasound 10/17/2024. Soft tissue CT of the neck 10/24/2024 unremarkable with atrophy of the thyroid gland. GERD (gastroesophageal reflux disease) (~09/2024) Left foot pain Insomnia Pharyngitis BMI 32.0-32.9,adult Edema of left lower extremity Thoracic back pain Dysuria COVID-19 (~03/01/19) positive antibody test 04/30/2020. Positive COVID 01/31/2024. Otitis media Left lower quadrant abdominal pain Restless legs syndrome iron 106 with 32% saturation and ferritin 29 on 09/29/2023. Mixed hyperlipidemia (09/29/23) total cholesterol 232, triglycerides 145, HDL 58, LDL 147 with ratio 4.0 on 09/29/2023. Vitamin B12 deficiency Level normal at 12 152 with folic acid 6.7 and hemoglobin 13.6 on 09/29/2023. BMI 30.0-30.9,adult Obesity (BMI 30.0-34.9) Anal pain Hemorrhoids Fecal incontinence Hemiplegic migraine Migraine Left wrist pain Fatigue Cough Chest x-ray 08/13/2022 normal. Ganglion cyst of dorsum of left wrist Acute non-recurrent maxillary sinusitis Microcalcification of breast Hypersomnia (~2021) Home sleep study 03/10/2022 did not reveal TANGELA. Referral to news clerk further testing. Hypothyroidism, unspecified (~12/2021) treated by bioinformaticist, Dr. Galo 01/01/2022. TSH suppressed at 0.14, free T4 0.9, T3 total 101 on 09/29/2023. thyroid ultrasound 10/17/2024 with thyroid atrophy. Abnormal thyroid screen (blood) Abnormal thyroid blood test Irregular periods Screening mammogram, encounter for Vaginal delivery 08/17/05 post hemorrhage Encounter for IUD removal 12/05/15 Mirena removal Encounter for IUD insertion 07/29/11 Mirena insertion Abnormal Pap smear of cervix ASCUS/ NEG HPV-2008 Nonunion of fracture of foot Chronic toe pain, left foot Overweight (BMI 25.0-29.9) Viral gastroenteritis Migraine without aura and without status migrainosus, not intractable (~03/2021) CT angiogram of the head and neck on 10/13/2022 was unremarkable. Pain and swelling of toe of left foot (02/09/21) crush injury 02/09/2021 left 5th toe . X-ray on 04/15/2021 reveals possible healing fractures of the proximal and distal phalanx BMI 28.0-28.9,adult Attention deficit hyperactivity disorder (ADHD), combined type, mild Caffeine abuse, continuous Patient stopped all caffeine. BMI 27.0-27.9,adult Mild intermittent asthma in adult without complication Seasonal allergic rhinitis Chronic anxiety Encounter for screening for other viral diseases Bipolar disorder DVT prophylaxis Blurry vision Neurological symptoms ADD (attention deficit disorder) Depression Kidney stones Surgical History Surgical History History of left salpingo-oophorectomy (12/30/23) Robotic assisted left salpingo oophorectomy History of orthopedic surgery left toe surgery flatbed ran over foot History of tubal ligation (12/05/14) History of cholecystectomy (~2009) Status post cystoscopy History of right salpingo-oophorectomy Status post tonsillectomy History of dilatation and curettage Family History Family History Father Hypertension Mother Breast cancer Social History Social History Smoking status: Never smoker Tobacco type: cigarettes and e-cigarettes/vaping Additional smoking assessment comments: 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 Gender identity (if verbalized by the patient): Female Sexual Orientation (if Verbalized by the Patient): Straight or Heterosexual Spiritual care concerns: No Agree to blood products: Yes Comments At the time of my signature, I reviewed and agree with the nursing past medical, surgical, social, and family history. There is no relevant family history pertinent to the patient complaint. Exam Narrative: General: Well-developed, well nourished, in no apparent distress Head: Normocephalic, atraumatic Eyes: Pupils equally round and reactive to light bilaterally, EOM intact, sclera and conjunctive clear, no discharge, lids normal Ears: TMs intact and clear, ear canals clear, no drainage, grossly hearing normal. Nose: Nares patent, clear discharge, mild inflammation, no sinus tenderness. Mouth: Oral pharynx red with mild tonsillar enlargement without lesions or masses, good dentition, MMM. Neck: Supple, trachea midline, no enlargement of anterior or posterior cervical nodes, no thyroid masses or goiter palpable. Cardio: Regular rate and rhythm, s1 and s2 normal, no murmur appreciated. Resp: Clear to auscultation bilaterally, no rhonchi, rales, wheezing or rubs Course Course Level of Care: Express Care Visit Vital Signs Vital signs: Vital Signs Temperature 36.6 C 02/11/25 11:37 Pulse Rate 79 02/11/25 11:37 Respiratory Rate 16 02/11/25 11:37 Blood Pressure 115/73 02/11/25 11:37 Pulse Oximetry 100 02/11/25 11:37 Temperature 36.6 C 02/11/25 11:37 Pulse Rate 79 02/11/25 11:37 Respiratory Rate 16 02/11/25 11:37 Blood Pressure 115/73 02/11/25 11:37 Pulse Oximetry 100 02/11/25 11:37 [facility] Narrative Medical decision making narrative: At the time of visit patient is resting comfortably on the exam table. Patient appears to be nontoxic. Complaints of watery eyes, bilateral shoulder blade pain, runny nose, vomiting, sore throat, feeling feverish, and congestion. States she is not able to take smell at this time. Symptoms just started yesterday. Had to leave work today. On exam patient has bilateral TMs intact and clear, clear nasal drainage, no anterior turbinate inflammation, x-ray with mild tonsillar enlargement, no cervical lymphadenopathy, heart sounds regular rate and rhythm, lung sounds are clear. COVID, strep test were ordered. Labs: COVID, flu, and strep test were performed. Strep was positive. COVID and influenza testing was negative Plan: Patient has strep pharyngitis. Prescription for amoxicillin was sent to the pharmacy. Work note was given. Supportive measures were discussed with the patient and they voiced understanding discharge instructions and agrees to treatment plan. Return precautions reviewed Differential Diagnosis Differential Diagnosis: Differential diagnostic considerations for upper respiratory infection include upper respiratory infection, croup, otitis media, sinusitis, viral infection, bronchitis, influenza, pharyngitis, strep, uvulitis. Discharge Plan Discharge Clinical Impression: Acute streptococcal pharyngitis Patient Disposition: Home Condition: Stable Instructions: Antibiotic Form Additional Instructions: COVID and influenza testing was negative Strep test was positive. Take prescription medications only as prescribed-amoxicillin Change your toothbrush after 24 hours after initiation of the antibiotic Increase fluids and stay well hydrated May take Tylenol or motrin as directed on bottle for pain/fever May use Flonase 1 spray in each nare daily May take OTC antihistamines such as Zyrtec or Claritin daily as directed on bottle May apply Vicks vapor rub to chest to open sinuses Sinus rinses for congestion Cepacol spray, cough drops, throat lozenges, warm tea with honey/lemon, gargle salt water to soothe throat BRAT diet for diarrhea Clear liquids x 24 hours then advance as tolerated for nausea/vomiting Go to the ED if you develop a worsening in your condition- high fever not controlled by Tylenol or Motrin, dehydration, weakness, lethargy, shortness of breath, or chest pain. Follow up with your PCP in 3-5 days if symptoms persist. Patient Language: Wolof Prescriptions: New amoxicillin 875 mg tablet 875 mg PO Q12H 10 Days Qty: 20 0RF No Action ibuprofen 800 mg tablet norethindrone ac-eth estradiol [03/06 (21)] 1-20 mg-mcg tablet riboflavin (vitamin B2) 400 mg tablet 400 mg PO DAILY cetirizine [Zyrtec] 10 mg tablet 10 mg PO DAILY PRN (Reason: allergies) fluticasone propionate [Flonase Allergy Relief] 50 mcg/actuation spray,suspension 1 spray intranasal DAILY Rx Instructions: administer into each nostril lidocaine [RectiCare] 5 % cream 1 applic topical TID PRN (Reason: pain) ferrous sulfate 325 mg (65 mg iron) tablet 325 mg PO DAILY escitalopram oxalate [Lexapro] 20 mg tablet 20 mg PO DAILY Qty: 90 3RF gabapentin 100 mg capsule 100 mg PO QHS Qty: 30 11RF Rx Instructions: per neuro buspirone 10 mg tablet 10 mg PO BID Qty: 180 3RF famotidine 20 mg tablet 20 mg PO BID PRN (Reason: reflux) Qty: 60 11RF estradiol 0.075 mg/24 hr patch semiweekly 1 patch transdermal 2XW Qty: 16 1RF Rx Instructions: apply 1 patch for 3 days alternating with 1 patch for 4 days each week hydrocortisone [Anusol-HC] 2.5 % cream with perineal applicator 1 applic RECTAL TID PRN (Reason: hemorrhoids) Qty: 30 0RF diazepam 2 mg tablet 2 mg PO BID PRN (Reason: anxiety) Qty: 60 5RF levothyroxine [Unithroid] 75 mcg tablet 75 mcg PO . Q.a.m. Qty: 90 3RF Nurtec ODT 75 mg tablet,disintegrating 75 mg PO ONCE PRN (Reason: migraine headache) Qty: 16 11RF Rx Instructions: as a single dose (DME) BD Eclipse Luer-Francisca 3 mL 23 x 1 syringe See Rx Instructions .Route Qty: 50 1RF Rx Instructions: weekly cyanocobalamin (vitamin B-12) 1,000 mcg/mL solution 1,000 mcg subcut . weekly Qty: 4 11RF dextroamphetamine-amphetamine [Adderall] 5 mg tablet 5 mg PO BID Qty: 60 0RF Rx Instructions: administer doses at least 4-6 hours apart Follow-up/Referrals: Blayne Davidson MD [Primary Care Provider, Family Practice] Stand Alone Forms: Work/School Release IP Time of Disposition: 12:04 Quality NIHSS Nursing Documentation ED NIHSS nursing documentation: reviewed/agree
[2025-02-11 15:57] LABS: EDCOVIDSCREEN Negative (Negative); EDINFLUASCREEN Negative (Negative); EDINFLUBSCREEN Negative (Negative)
[2025-02-11 15:58] LABS: EDSTREPNEGPOS1 Positive (Negative)
== END 2025-02-11 12:10 | disposition home or self-care (01) ==
PROVIDERS: Emergency Provider Nurse Practitioner Family; PCP Family Medicine
DX: J02.0 Streptococcal pharyngitis (principal); Z20.822 Contact with and (suspected) exposure to COVID-19; K21.9 Gastro-esophageal reflux disease without esophagitis; G25.81 Restless legs syndrome; E78.2 Mixed hyperlipidemia; E03.9 Hypothyroidism, unspecified; F90.9 Attention-deficit hyperactivity disorder, unspecified type; E53.8 Deficiency of other specified B group vitamins; F41.9 Anxiety disorder, unspecified; F32.A Depression, unspecified; E66.9 Obesity, unspecified; Z68.34 Body mass index [BMI] 34.0-34.9, adult
CPT/HCPCS: 87426; 87804; 87880; 99213; G0463